=== PATIENT | male | born 1980 | race Caucasian/White ===

== ENCOUNTER 2016-10-14 03:18 | Inpatient (IN) | payer BC ==
[~2016-10-14] VITALS: Ht 182.9 cm; Wt 103.8 kg
[~2016-10-14 03:18] MED LIST: CEPH-443 PO; HYDR-906 PO
[2016-10-14] MEDS ORDERED: SOD CHLORIDE 0.9% 1,000 ML IV ONE ×2 (04:00→05:00)
[2016-10-14] MEDS ORDERED: ONDANSETRON 4 MG INJ IV ONE (04:07)
[2016-10-14] MEDS ORDERED: morphine 4 MG/ML VIAL IV ONE (04:07)
[2016-10-14 04:27] LABS: BASOPHIL # 0.3 10^3/ul (0.0-0.1); BASOPHILS % 1.9 % (0.0-2.0); EOSINOPHILS # 0.9 10^3/ul (0.0-0.5); EOSINOPHILS % 5.6 % (0.0-7.0); HEMOGLOBIN 15.3 g/dl (14.0-18.0); LYMPHOCYTES # 3.8 10^3/ul (0.8-2.9); LYMPHOCYTES % 23.3 % (15.0-51.0); MEAN CORPUSCULAR HEMOGLOBIN 28.1 pg (29.0-33.0); MEAN CORPUSCULAR HGB CONC 32.6 g/dl (32.0-37.0); MEAN CORPUSCULAR VOLUME 86.4 fl (82.0-101.0); MEAN PLATELET VOLUME 9.1 fl (7.4-10.4); MONOCYTE # 1.9 10^3/ul (0.3-0.9); MONOCYTES % 11.9 % (0.0-11.0); NEUTROPHIL # 9.4 10^3/ul (1.6-7.5); NEUTROPHILS % 57.3 % (39.0-77.0); PLATELET COUNT 599 10^3/UL (140-440); RED BLOOD COUNT 5.44 10^6/ul (4.70-6.10); UNCORRECTED WBC 16.3 10^3/ul (4.8-10.8); WHITE BLOOD COUNT 16.3 10^3/ul (4.8-10.8)
[2016-10-14 04:31] LABS: CONDITION 1; LH ANALYZER COMMENTS 1
[2016-10-14 04:34] LABS: ALBUMIN 3.7 g/dl (3.3-4.9); POTASSIUM 4.3 mmol/L (3.5-5.1)
[2016-10-14 04:36] LABS: CREATININE 1.19 mg/dl (0.61-1.24)
[2016-10-14 04:37] LABS: ALBUMIN/GLOBULIN RATIO 0.97; BILIRUBIN,INDIRECT 0.2 mg/dl (0-1.1); BILIRUBIN,TOTAL 0.2 mg/dl (0.2-1.3); CALCIUM 9.5 mg/dl (8.4-10.2); TOTAL PROTEIN 7.5 g/dl (6.1-8.1)
[2016-10-14 04:37] LABS: ADD UMIC YES; URINE BILIRUBIN (Dip) NEGATIVE (NEGATIVE); URINE BLOOD (Dip) NEGATIVE (NEGATIVE); URINE COLOR LT. YELLOW (YELLOW); URINE GLUCOSE (Dip) NEGATIVE (NEGATIVE); URINE KETONES (Dip) NEGATIVE (NEGATIVE); URINE LEUKOCYTE ESTERASE (Dip) TRACE (NEGATIVE); URINE NITRITE (Dip) NEGATIVE (NEGATIVE); URINE TOTAL PROTEIN (Dip) NEGATIVE (NEGATIVE); URINE UROBILINOGEN (Dip) 0.2 E.U./dL (0.1-1.0)
[2016-10-14 04:47] LABS: BACTERIA,URINE RARE; SQUAMOUS EPITHELIAL CELL,UR FEW; URINE RBCS 0-2 /HPF (0)
--- NOTE | 2016-10-14 04:48 | RADRPT ---
PROCEDURE: CT Abdomen and Pelvis without contrast. CLINICAL INDICATION: Epigastric pain, history of pancreatitis, acute and chronic. Lipase is not elevated presently. TECHNIQUE: CT scan of the abdomen and pelvis without contrast was performed on a multidetector hig h-resolution CT scanner. The patient was scanned without intravenous contrast. No oral contrast was administered. Coronal and sagittal reformatted images were obtained from the axial source images. Im ages were reviewed on a high-resolution PACS workstation. The total exam CTDI equals 19.73 mGy and the total exam DLP equals 1377.09 mGy-cm. One or more of the following dose reduction techniques were used: - Automated exposure control. - Adjustment of the mA and/or kV according to patient size. - Use of iterative reconstruction technique. COMPARISON: 02/12/2016 FINDINGS: Lungs: The lung bases are clear. Liver: No abnormality seen. Gallbladder: No abnormality seen. Spleen: Status post splenectomy with a small splenule at the splenectomy bed again seen. Stomach: Food material/debris, fluid and air in the stomach. Pancreas: There is new relative decreased density in head and body of the pancreas with soft tissue stranding in peripancreatic fat adjacent to the head and body of the pancreas which could be second julian to acute pancreatitis. Underlying neoplasm is possible. Adrenals: No abnormality seen. Kidneys: No abnormality seen. Abdominal aorta: No abdominal aortic aneurysm seen. Small amount of calcification in abdominal aort a. Calcification in iliac arteries. Lymph nodes: No enlarged lymph nodes are seen. Small bowel: No dilated small bowel loops are seen. Colon: No abnormality seen. Appendix: No abnormality seen. Bladder: No abnormality seen Pelvic organs: Small calcifications in central prostate. Ascites: None seen. Osseous structures: Schmorl's nodes in thoracolumbar spine. Degenerative changes at hips. IMPRESSION: The lack of intravenous contrast material limits evaluation. New relative decreased density in head and body of the pancreas with soft tissue stranding in peripancreatic fat adjacent to the head and body of the pancreas which could be secondary to acute pancreatitis. An underlying pancreatic neopla sm is possible. Please see above. A call report was made to <<Referring Physicians Name>> on <<D ATETIME>>. RPTAT: HJES .Juan Luis Murphy MD, MD Date Time Electronically viewed and signed by .Juan Luis Murphy MD, MD on 10/14/2016 04:47 .S/
[2016-10-14] MEDS ORDERED: morphine 10 MG INJ IV ONE (05:00)
[2016-10-14] MEDS ORDERED: ONDANSETRON 4 MG INJ IV PRN (06:00)
[2016-10-14] MEDS ORDERED: ACETAMINOPHEN 325 MG TAB PO PRN ×2 (06:00→08:00)
[2016-10-14] MEDS ORDERED: HYDROmorphONE 1 MG/ML SYG IV STA (07:15)
--- NOTE | 2016-10-14 07:29 | ERD ---
ER Documentation Chief Complaint Date/Time DATE: 10/14/16 TIME: 07:21 Chief Complaint upper abd pain radaiting to back x 1 day HPI 36--year-old male with epigastric abdominal pain radiating to the back for 1 day. Pain is also left upper quadrant. States that nothing makes the pain better and it is severe. He has a history of alcoholic pancreatitis and had the part of the tail of the pancreas resected. States he is not drink heavily anymore but still has the pancreatitis. The last time he had alcohol was when he had 2 beers on 's Day with dinner. Denies fevers chills. ROS All systems reviewed and are negative except as per history of present illness. Medications Home Meds Discontinued Scripts Cephalexin* (Keflex*) 500 Mg Capsule, 500 MG PO QID for 7 Days, CAP Prov:JERMAINE PORTILLO DO 07/01/16 Hydrocodone/Acetaminophen (Hubbard 5-325 Tablet) 1 Each Tablet, 1 EACH PO Q8, #15 TAB Prov:JERMAINE PORTILLO DO 07/01/16 Allergies Allergies: Coded Allergies: No Known Allergy (Unverified , 07/01/16) PMhx/Soc History of Surgery: Yes (splenectomy, pancreas tail, intestinal surgery) Anesthesia Reaction: No Hx Neurological Disorder: Yes (TIA x2 (2007)) Hx Respiratory Disorders: No Hx Cardiac Disorders: Yes (HTN) Hx Psychiatric Problems: No Hx Miscellaneous Medical Probl: Yes (pancreatitis) Hx Alcohol Use: Yes (occassional) Hx Substance Use: Yes (marijuana) Hx Tobacco Use: No Smoking Status: Current some day smoker Physical Exam Vitals Vital Signs Date Time Temp Pulse Resp B/P Pulse Ox O2 Delivery O2 Flow Rate FiO2 10/14/16 05:57 54 16 127/71 98 Room Air 10/14/16 04:34 61 16 154/95 98 Room Air 10/14/16 03:20 97.1 70 20 178/115 99 Physical Exam Const: [] Mild distress, appears somewhat uncomfortable Head: Atraumatic Eyes: Normal Conjunctiva ENT: Normal External Ears, Nose and Mouth. Neck: Full range of motion..~ No meningismus. Resp: Clear to auscultation bilaterally Cardio: Regular rate and rhythm, no murmurs Abd: Soft, moderate epigastric and left lower quadrant abdominal tenderness without guarding or rebound, non distended. Normal bowel sounds Skin: No petechiae or rashes Back: No midline or flank tenderness Ext: No cyanosis, or edema Neur: Awake and alert oriented 3, no focal deficits Psych: Normal Mood and Affect Result Diagram: 10/14/1640610/14/16406 Results 24 hrs Laboratory Tests Test 10/14/16 04:00 10/14/16 04:07 Urine Bacteria RARE Urine Bilirubin NEGATIVE Urine Clarity CLEAR Urine Color LT. YELLOW Urine Glucose NEGATIVE% Urine Hemoglobin NEGATIVE Urine Ketones NEGATIVE Urine Leukocyte Esterase TRACE Urine Microscopic RBC 0-2/HPF Urine Microscopic WBC 5-10/HPF Urine Nitrite NEGATIVE Urine Specific [place] 1.020 Urine Squamous Epithelial Cells FEW Urine Total Protein NEGATIVE Urine Urobilinogen 0.2 E.U./dL Urine pH 6.5 Alanine Aminotransferase (ALT/SGPT) 34IU/L Albumin 3.7g/dl Albumin/Globulin Ratio 0.97 Alkaline Phosphatase 107IU/L Anion Gap 20 Aspartate Amino Transf (AST/SGOT) 36IU/L Basophils # 0.310^3/ul Basophils % 1.9% Blood Morphology Comment Blood Urea Nitrogen 18mg/dl Calcium Level 9.5mg/dl Carbon Dioxide Level 28mmol/L Chloride Level 101mmol/L Creatinine 1.19mg/dl Direct Bilirubin 0.00mg/dl Eosinophils # 0.910^3/ul Eosinophils % 5.6% Globulin 3.80g/dl Glucose Level 89mg/dl Hematocrit 47.0% Hemoglobin 15.3g/dl Indirect Bilirubin 0.2mg/dl Lipase 1102U/L Lymphocytes # 3.810^3/ul Lymphocytes % 23.3% Mean Corpuscular Hemoglobin 28.1pg Mean Corpuscular Hemoglobin Concent 32.6g/dl Mean Corpuscular Volume 86.4fl Mean Platelet Volume 9.1fl Monocytes # 1.910^3/ul Monocytes % 11.9% Neutrophils # 9.410^3/ul Neutrophils % 57.3% Nucleated Red Blood Cells # 0.010^3/ul Nucleated Red Blood Cells % 0.0/100WBC Platelet Count 15332^3/UL Potassium Level 4.3mmol/L Red Blood Count 5.4410^6/ul Red Cell Distribution Width 19.0% Sodium Level 145mmol/L Total Bilirubin 0.2mg/dl Total Protein 7.5g/dl White Blood Count 16.310^3/ul Current Medications Medications (Trade) Dose Ordered Sig/Marlo Route PRN Reason Start Time Stop Time Status Last Admin Dose Admin Sodium Chloride (NS) 1,000 ml @ 1,000 mls/hr Q1H ONCE IV 10/14/16 04:00 10/14/16 04:59 DC 10/14/16 04:14 Morphine Sulfate (morphine) 4 mg ONCE ONCE IV 10/14/16 04:07 10/14/16 04:08 DC 10/14/16 04:14 Ondansetron HCl 4 mg 4 mg ONCE ONCE IV 10/14/16 04:07 10/14/16 04:08 DC 10/14/16 04:14 Sodium Chloride (NS) 1,000 ml @ 1,000 mls/hr Q1H ONCE IV 10/14/16 05:00 10/14/16 05:59 DC 10/14/16 04:58 Morphine Sulfate (morphine) 8 mg ONCE ONCE IV 10/14/16 05:00 10/14/16 05:01 DC 10/14/16 04:58 Ondansetron HCl (Zofran Inj) 4 mg BRIDGE ORDER PRN IV NAUSEA AND/OR VOMITING 10/14/16 06:00 10/15/16 05:59 10/14/16 07:18 Acetaminophen (Tylenol Tab) 650 mg ER BRIDGE PRN PO MILD PAIN/FEVER 10/14/16 06:00 10/15/16 05:59 Hydromorphone HCl (Dilaudid) 1 mg ONCE STAT IV 10/14/16 07:15 10/14/16 07:16 DC 10/14/16 07:19 Procedures/MDM Acute on chronic pancreatitis. She was given 2 L of IV normal saline. Given morphine for pain which did control the pain for a short time the pain came back. When she was given Dilaudid. This took away all of his pain. He has both laboratory and CT evidence of acute pancreatitis. Radiologist also even mentions possible neoplasm. Does have elevated white blood cell count as well as thrombocytosis significant for reactive laboratories with an acute inflammatory process per. Spoke with Dr. Gaston who has seen the patient on consult previously and will see the patient on consult on this hospital admission. is admitting. CT abdomen pelvis interpretation: Pancreatic stranding consistent with acute pancreatitis, no free air, no obstruction, no bony abnormalities Departure Diagnosis: Primary Impression: Acute pancreatitis Additional Impression: Thrombocytosis Condition: Serious ANDRZEJ MARIE DO Oct 14, 2016 07:29
[2016-10-14] MEDS ORDERED: morphine 2 MG INJ IV PRN (08:00)
[2016-10-14] MEDS ORDERED: traMADol 50 MG TAB PO PRN (08:00)
[2016-10-14] MEDS ORDERED: NACL 0.9% 3 ML SYG IV SCH (08:00)
[2016-10-14] MEDS: morphine 2 MG INJ IV PRN ×3 (10:00→14:24)
[2016-10-14] MEDS ORDERED: HYDROmorphONE 1 MG/ML SYG IV PRN (11:30)
--- NOTE | 2016-10-14 12:01 | CONS ---
Date/Time of Note Date/Time of Note DATE: 10/14/16 TIME: 11:51 Assessment/Plan Assessment/Plan Additional Assessment/Plan Abdominal pain * Likely secondary to pancreatitis * CT abdomen 10-14-16: Pancreas: There is new relative decreased density in head and body of the pancreas with soft tissue stranding in peripancreatic fat adjacent to the head and body of the pancreas which could be secondary to acute pancreatitis. Underlying neoplasm is possible. * MRCP * ERCP if clinically indicated * N.p.o. * Nausea and pain control * Monitor labs Diarrhea Fecal incontinence * Recommend outpatient colonoscopy High cholesterol Obesity Further conditions depend on clinical course Consultation Date/Type/Reason Admit Date/Time Type of Consultation: Gastroenterology Reason for Consultation Pancreatitis Hx of Present Illness 36-year-old male presented to ED with reports of increasing abdominal pain that started on Tuesday, October 11. Patient states he had steak dinner with 2 beers this past Tuesday and states symptoms of abdominal pain, nausea, nonbloody bilious vomiting, and diarrhea slowly began after a meal. Patient states that symptoms worsened yesterday afternoon. Patient denies fever, chills, chest pain , shortness of breath, sick contacts, and travel outside the [place]. Patient reports previous episode of pancreatitis several years ago secondary to his increased alcohol intake. Patient reports splenectomy, resection of pancreas, and resection of stomach secondary to alcohol abuse 3 years ago. Patient states that he's been sober for several years until recently. Patient states that he has been having increased diarrhea since surgery 3 years ago. Patient also reports intermittent episodes of fecal incontinence and hematochezia. Patient reports one episode of hematochezia one month ago and may be 5-6 episodes of hematochezia since surgery 3 years ago. Patient denies history of IBS, IBD, and family history of colon cancer. CT abdomen does not note abnormality with large or small bowel. Recommend outpatient colonoscopy. Past Medical History Medical History: high cholesterol Past Surgical History Past Surgical Hx: other (Splenectomy, resection of pancreas, resection of stomach) Social History Smoking Status: Current some day smoker Exam/Review of Systems Vital Signs Vitals Vital Signs Date Time Temp Pulse Resp B/P Pulse Ox O2 Delivery O2 Flow Rate FiO2 10/14/16 11:29 97.6 53 12 151/93 100 Room Air Exam Constitutional: alert, oriented, well developed Psych: nl mood/affect Head: normocephalic Eyes: EOMI, nl conjunctiva, nl lids, nl sclera ENMT: mucosa pink and moist, nl external ears & nose, nl lips & teeth, nl nasal mucosa & septum Respiratory: normal air movement Cardiovascular: regular rate and rhythm Gastrointestinal: soft, surgical scars (Left upper quadrant, status post splenectomy), tender (Epigastric and left upper quadrant) Musculoskeletal: nl extremities to inspection Neurological: CHANNEL LIP WETTER II-XII intact Results Result Diagram: 10/14/167 10/14/16 0407 Results 24 hrs Laboratory Tests Test 10/14/16 04:00 10/14/16 04:07 Ethyl Alcohol Level < 10.0 Urine Bacteria RARE Urine Bilirubin NEGATIVE Urine Clarity CLEAR Urine Color LT. YELLOW Urine Glucose NEGATIVE Urine Hemoglobin NEGATIVE Urine Ketones NEGATIVE Urine Leukocyte Esterase TRACE H Urine Microscopic RBC 0-2 Urine Microscopic WBC 5-10 Urine Nitrite NEGATIVE Urine Specific [place] 1.020 Urine Squamous Epithelial Cells FEW Urine Total Protein NEGATIVE Urine Urobilinogen 0.2 E.U./dL Urine pH 6.5 Alanine Aminotransferase (ALT/SGPT) 34 Albumin 3.7 Albumin/Globulin Ratio 0.97 Alkaline Phosphatase 107 Anion Gap 20 H Aspartate Amino Transf (AST/SGOT) 36 Basophils # 0.3 H Basophils % 1.9 Blood Morphology Comment Blood Urea Nitrogen 18 Calcium Level 9.5 Carbon Dioxide Level 28 Chloride Level 101 Creatinine 1.19 Direct Bilirubin 0.00 Eosinophils # 0.9 H Eosinophils % 5.6 Globulin 3.80 H Glucose Level 89 Hematocrit 47.0 Hemoglobin 15.3 Indirect Bilirubin 0.2 Lipase 1102 H Lymphocytes # 3.8 H Lymphocytes % 23.3 Mean Corpuscular Hemoglobin 28.1 L Mean Corpuscular Hemoglobin Concent 32.6 Mean Corpuscular Volume 86.4 Mean Platelet Volume 9.1 Monocytes # 1.9 H Monocytes % 11.9 H Neutrophils # 9.4 H Neutrophils % 57.3 Nucleated Red Blood Cells # 0.0 Nucleated Red Blood Cells % 0.0 Platelet Count 599 #H Potassium Level 4.3 Red Blood Count 5.44 Red Cell Distribution Width 19.0 H Sodium Level 145 H Total Bilirubin 0.2 Total Protein 7.5 White Blood Count 16.3 H Medications Medications Current Medications Dextrose/Sodium Chloride (D5-1/2ns) 1,000 ml @ 125 mls/hr Q8H IV ; Start at 11:00 Ondansetron HCl (Zofran Inj) 4 mg Q6H PRN IV NAUSEA AND/OR VOMITING; Start at 08:00 Acetaminophen (Tylenol Tab) 650 mg Q6H PRN PO PAIN LEVEL 1-3 OR FEVER; Start at 08:00 Famotidine (Pepcid Iv) 20 mg Q12 IV ; Start 10/14/16 at 11:00 Heparin Sodium (Porcine) (Heparin (5000 Units/0.5 ml)) 5,000 unit Q12 SC ; Start 10/14/16 at 11:00 Tramadol HCl (Ultram) 50 mg Q6H PRN PO pain Last administered on 10/14/16 09: 38; Admin Dose 50 MG; Start 10/14/16 at 08:00 Morphine Sulfate (morphine) 2 mg Q2 PRN IV SEVERE PAIN LEVEL 7-10 Last administered on 10/14/16 10:00; Admin Dose 2 MG; Start 10/14/16 at 10:00 Hydromorphone HCl (Dilaudid) 0.5 mg Q3 PRN IV SEDATION; Start 10/14/16 at 11:30 Hydromorphone HCl (Dilaudid) 0.5 mg Q3 PRN IV SEVERE PAIN LEVEL 7-10; Start at 11:30 PARVIZ HARRISON MD Oct 14, 2016 12:01
[2016-10-14] MEDS: DEXTROSE 5%-0.45% NACL 1,000 ML IV SCH ×3 (12:12→21:41)
[2016-10-14] MEDS: FAMOTIDINE 20 MG INJ IV SCH ×2 (12:12→21:41)
[2016-10-14] MEDS: HEPARIN 5,000 UNIT/0.5 ML SYG SC SCH ×2 (12:14→21:40)
[2016-10-14] MEDS: HYDROmorphONE 1 MG/ML SYG IV PRN ×2 (12:26→15:40)
[2016-10-14] MEDS: ONDANSETRON 4 MG INJ IV PRN ×2 (14:24→21:41)
[2016-10-14] MEDS ORDERED: BISACODYL (EC) 5 MG TAB PO ONE ×2 (15:00→21:00)
[2016-10-14] MEDS ORDERED: MAGNESIUM CITRATE 300 ML BTL PO ONE (16:00)
--- NOTE | 2016-10-14 16:56 | PN ---
Date/Time of Note Date/Time of Note DATE: 10/14/16 TIME: 16:52 Assessment/Plan VTE Prophylaxis VTE Prophylaxis Intervention: SCD's Assessment/Plan Chief Complaint/Hosp Course Assessment and plan 1. Acute pancreatitis. Patient still with elevated lipase. IV hydration. Keep npo for now. Analgesics as needed. 2. Density in head and body of the pancreas with soft tissue stranding in peripancreatic fat adjacent to the head and body of the pancreas. GI following. Continue the recommendations. Of note imaging does report decrease in density 3. Leukocytosis secondary to #1. Afebrile at present. DVT prophylaxis: Early ambulation Disposition and plan: Await clinical improvement of pancreatitis. Will advance diet once pain subsides. Discussed plan of care with Dr. Ayala Problems: Subjective 24 Hr Interval Summary Free Text/Dictation Still with reports of abdominal pain in epigastric area. No reports of nausea vomiting at this time Exam/Review of Systems Vital Signs Vitals Vital Signs Date Time Temp Pulse Resp B/P Pulse Ox O2 Delivery O2 Flow Rate FiO2 10/14/16 15:42 97.6 50 12 160/91 97 Room Air Exam General: In mild distress secondary to reported abdominal pain Eyes: [pupils equal round, Anicteric sclera] Neck: Supple nontender, no JVD Cardiac: [S1, S2 auscultated, regular rhythm and rate] Pulmonary: [No coarse rhonchi or breathing auscultated] GI: Bowel sounds active. Tender upon palpation more noted on the upper abdominal quadrants Extremities: [No edema bilateral lower extremities] Skin: [Clean dry and intact] Neurologic: [Alert to person place and time and situation] Results Result Diagram: 10/14/1640610/14/16406 Results 24 hrs Laboratory Tests Test 10/14/16 04:00 10/14/16 04:07 Ethyl Alcohol Level < 10.0 Urine Bacteria RARE Urine Bilirubin NEGATIVE Urine Clarity CLEAR Urine Color LT. YELLOW Urine Glucose NEGATIVE Urine Hemoglobin NEGATIVE Urine Ketones NEGATIVE Urine Leukocyte Esterase TRACE H Urine Microscopic RBC 0-2 Urine Microscopic WBC 5-10 Urine Nitrite NEGATIVE Urine Specific [place] 1.020 Urine Squamous Epithelial Cells FEW Urine Total Protein NEGATIVE Urine Urobilinogen 0.2 E.U./dL Urine pH 6.5 Alanine Aminotransferase (ALT/SGPT) 34 Albumin 3.7 Albumin/Globulin Ratio 0.97 Alkaline Phosphatase 107 Anion Gap 20 H Aspartate Amino Transf (AST/SGOT) 36 Basophils # 0.3 H Basophils % 1.9 Blood Morphology Comment Blood Urea Nitrogen 18 Calcium Level 9.5 Carbon Dioxide Level 28 Chloride Level 101 Creatinine 1.19 Direct Bilirubin 0.00 Eosinophils # 0.9 H Eosinophils % 5.6 Globulin 3.80 H Glucose Level 89 Hematocrit 47.0 Hemoglobin 15.3 Indirect Bilirubin 0.2 Lipase 1102 H Lymphocytes # 3.8 H Lymphocytes % 23.3 Mean Corpuscular Hemoglobin 28.1 L Mean Corpuscular Hemoglobin Concent 32.6 Mean Corpuscular Volume 86.4 Mean Platelet Volume 9.1 Monocytes # 1.9 H Monocytes % 11.9 H Neutrophils # 9.4 H Neutrophils % 57.3 Nucleated Red Blood Cells # 0.0 Nucleated Red Blood Cells % 0.0 Platelet Count 599 #H Potassium Level 4.3 Red Blood Count 5.44 Red Cell Distribution Width 19.0 H Sodium Level 145 H Total Bilirubin 0.2 Total Protein 7.5 White Blood Count 16.3 H Medications Medications Current Medications Dextrose/Sodium Chloride (D5-1/2ns) 1,000 ml @ 125 mls/hr Q8H IV Last administered on 10/14/16 12:12; Admin Dose 125 MLS/HR; Start 10/14/16 at 11:00 Ondansetron HCl (Zofran Inj) 4 mg Q6H PRN IV NAUSEA AND/OR VOMITING Last administered on 10/14/16 14:24; Admin Dose 4 MG; Start 10/14/16 at 08:00 Acetaminophen (Tylenol Tab) 650 mg Q6H PRN PO PAIN LEVEL 1-3 OR FEVER; Start at 08:00 Famotidine (Pepcid Iv) 20 mg Q12 IV Last administered on 10/14/16 12:12; Admin Dose 20 MG; Start 10/14/16 at 11:00 Heparin Sodium (Porcine) (Heparin (5000 Units/0.5 ml)) 5,000 unit Q12 SC Last administered on 10/14/16 12:14; Admin Dose 5,000 UNIT; Start 10/14/16 at 11:00 Nicotine (Nicoderm 21 Mg/ 24hr) 1 patch AM TRANSDERM ; Start 10/15/16 at 09:00 Hydromorphone HCl (Dilaudid FORKLIFT TECHNICIAN) 1.0 MG/HR CONTINUOUS RATE ... Q4PCA IV ; Start 10/14/16 at 16:00 Lorazepam (Ativan) 1 mg Q6 PO ; Start 10/14/16 at 18:00 GEOFF CAT Oct 14, 2016 16:56
--- NOTE | 2016-10-14 17:46 | RADRPT ---
PROCEDURE: MRI abdomen / MRCP CLINICAL INDICATION: Abdominal pain. Pancreatitis. Possible gallstones TECHNIQUE: MRI of the abdomen is performed without contrast utilizing axial T2 and T2 fat suppress ion sequences as well as in and out of phase imaging. The MRCP is performed and the MIP series submi tted for review. COMPARISON: CT abdomen and pelvis 10/14/2016 FINDINGS: Visualized lower thorax: There is no evidence for consolidation or pleural effusion. Liver: Normal in size, contour and signal intensity with no evidence for masses or ductal dilatatio n. Gallbladder: Normal in caliber with no filling defects to suggest cholelithiasis and no wall thicke hubert. There is no pericholecystic inflammation. Common bile duct: There is no filling defect to suggest choledocholithiasis. The caliber of the du ct is of normal estimated at 3 mm. The MRCP shows no evidence for intrahepatic or extrahepatic duct al dilatation, the ductal system is smoothly aligned with no evidence for filling defect. Pancreas: Diffuse fullness of the pancreatic head and body is present with irregularly marginated c entrally hyperintense foci in the pancreatic body of the 98 dimension of 2.3 x 2 cm and suggest panc reatic pseudocysts. The pancreatic necrosis and underline pancreatic neoplasm is difficult to entir oumar exclude without contrast media utilization. The pancreatic duct is normal in caliber measuring 3 mm. There is some inflammatory flavum on within the left anterior pararenal space. Spleen: Surgically absent. Some splenosis with splenic tissue in the left upper quadrant is again n oted Adrenal glands: Unremarkable bilaterally. Kidneys: Normal in size with no evidence for masses or hydronephrosis. Stomach, visualized small bowel and visualized large intestine: No abnormalities are demonstrated. Abdominal aorta: Normal in caliber estimated at 2 cm. Inferior vena cava: Unremarkable. Vertebral bodies and osseous structures: Unremarkable. Musculature and soft tissues: Unremarkable. RPTAT:HJJR IMPRESSION: 1. No evidence of cholelithiasis or cholecystitis. 2. The common bile duct and intrahepatic ducts are normal in caliber and there is no choledocholith iasis. 3. Changes of pancreatitis with inflammatory phlegmon in the left anterior pararenal space and like ly pseudocysts in the pancreatic body having estimation of 2.3 x 2 cm without pancreatic ductal dila tation. As underlying pancreatic neoplasm or pancreatic necrosis is difficult to entirely exclude o n this unenhanced exam, follow-up is recommended. 4. Changes of prior splenectomy. Ralph Sparks Physician Date Time Electronically viewed and signed by Ralph Sparks, Physician on 10/14/2016 17:46 JR/
[2016-10-14] MEDS: LORAZEPAM 1 MG TAB PO SCH ×2 (17:53→23:24)
[2016-10-14] MEDS: HYDROmorphONE 0.2 MG/ML PCA IV SCH ×2 (18:36→21:38)
[2016-10-14] MEDS ORDERED: POLYETHYLENE GLYCOL 3350 119 GM POWDER PO ONE ×2 (19:00→21:00)
[2016-10-14 19:30] VITALS: TEMP 98
[2016-10-14 20:30] VITALS: BP 198/110; PULSE 76; RESP 19; Ht 182.9 cm; Wt 103.8 kg
[2016-10-14] MEDS: NICOTINE (21 MG/24 HR) PATCH TRANSDERM SCH (21:41)
[2016-10-14 22:00] VITALS: BP 201/106; PULSE 71
--- NOTE | 2016-10-14 23:11 | HP ---
Date/Time of Note Date/Time of Note DATE: 10/14/16 TIME: 23:11 Assessment/Plan Lines/Catheters IV Catheter Type (from Nrsg): Peripheral IV Assessment/Plan Assessment/Plan 1. Acute on chronic pancreatitis - NPO with IVF - Pain mgmt 2. Abdominal pain 2/2 above 3. Hypertension. - PRN IV anti-hypertensives for now 4. Leukocytosis: 2/2 pancreatitis - see # 1 5. Nicotine use. - cessation advised 6. Substance abuse. - advised about importance of abstinence HPI/ROS Admit Date/Time Admit Date/Time Hx of Present Illness 36--year-old male with epigastric abdominal pain radiating to the back for 1 day. Pain is also left upper quadrant. States that nothing makes the pain better and it is severe. He has a history of alcoholic pancreatitis and had the part of the tail of the pancreas resected. States he is not drink heavily anymore but still has the pancreatitis. The last time he had alcohol was when he had 2 beers on 's Day with dinner. Denies fevers chills. ROS Psychological: nl mood/affect PMH/Family/Social Past Medical History Medical History: hypertension, pancreatitis Past Surgical History Past Surgical Hx: other (Splenectomy, resection of pancreas, resection of stomach) Social History Alcohol Use: heavy Smoking Status: Current every day smoker Exam/Review of Systems Vital Signs Vitals Vital Signs Date Time Temp Pulse Resp B/P Pulse Ox O2 Delivery O2 Flow Rate FiO2 10/14/16 20:30 97.5 76 19 198/110 98 Room Air Exam Constitutional: alert, oriented, well developed Head: atraumatic, normocephalic Eyes: EOMI, PERRL Neck: non-tender, supple Respiratory: clear to auscultation, normal air movement Cardiovascular: nl pulses, regular rate and rhythm Gastrointestinal: soft, tender Extremities: normal pulses Labs Result Diagram: 10/14/1640610/14/16406 Medications Medications Current Medications Dextrose/Sodium Chloride (D5-1/2ns) 1,000 ml @ 125 mls/hr Q8H IV Last administered on 10/14/16t 21:41; Admin Dose 125 MLS/HR; Start 10/14/16 at 11:00 Ondansetron HCl (Zofran Inj) 4 mg Q6H PRN IV NAUSEA AND/OR VOMITING Last administered on 10/14/16 21:41; Admin Dose 4 MG; Start 10/14/16 at 08:00 Acetaminophen (Tylenol Tab) 650 mg Q6H PRN PO PAIN LEVEL 1-3 OR FEVER; Start at 08:00 Famotidine (Pepcid Iv) 20 mg Q12 IV Last administered on 10/14/16 21:41; Admin Dose 20 MG; Start 10/14/16 at 11:00 Heparin Sodium (Porcine) (Heparin (5000 Units/0.5 ml)) 5,000 unit Q12 SC Last administered on 10/14/16 21:40; Admin Dose 5,000 UNIT; Start 10/14/16 at 11:00 Hydromorphone HCl (Dilaudid SOLUTION ENGINEER) 1.0 MG/HR CONTINUOUS RATE ... Q4PCA IV Last administered on 10/14/16 21:38; Admin Dose 6 MG; Start 10/14/16 at 16:00 Lorazepam (Ativan) 1 mg Q6 PO Last administered on 10/14/16 17:53; Admin Dose 1 MG; Start 10/14/16 at 18:00 Nicotine (Nicoderm 21 Mg/ 24hr) 1 patch QPM TRANSDERM Last administered on 10/14 21:41; Admin Dose 1 PATCH; Start 10/14/16 at 21:00 Hydralazine HCl (Apresoline) 25 mg Q8 PO Last administered on 10/14/16 22:16; Admin Dose 25 MG; Start 10/14/16 at 22:09 KIMO KWON MD Oct 14, 2016 23:11
[2016-10-14 23:50] VITALS: BP 201/109; RESP 18
[2016-10-14] MEDS: METOCLOPRAMIDE 10 MG INJ IV PRN (23:52)
[2016-10-14] MEDS: hydrALAzine 20 MG INJ IV PRN (23:53)
[2016-10-15 00:22] VITALS: BP 159/103; PULSE 65
[2016-10-15] MEDS: ONDANSETRON 4 MG INJ IV PRN ×2 (04:46→09:25)
[2016-10-15] MEDS: hydrALAzine 20 MG INJ IV PRN (04:46)
[2016-10-15 04:47] VITALS: BP 200/110; PULSE 74
[2016-10-15] MEDS: HYDROmorphONE 0.2 MG/ML PCA IV SCH ×5 (05:35→23:54)
[2016-10-15 05:45] LABS: HEMATOCRIT 49.3 % (42.0-52.0); HEMOGLOBIN 16.2 g/dl (14.0-18.0); MEAN CORPUSCULAR HEMOGLOBIN 28.7 pg (29.0-33.0); MEAN CORPUSCULAR HGB CONC 32.9 g/dl (32.0-37.0); MEAN CORPUSCULAR VOLUME 87.3 fl (82.0-101.0); MEAN PLATELET VOLUME 9.2 fl (7.4-10.4); PLATELET COUNT 588 10^3/UL (140-440); RED BLOOD COUNT 5.65 10^6/ul (4.70-6.10); RED CELL DISTRIBUTION WIDTH 19.1 % (11.5-14.5); UNCORRECTED WBC 15.1 10^3/ul (4.8-10.8); WHITE BLOOD COUNT 15.1 10^3/ul (4.8-10.8)
[2016-10-15 05:56] LABS: CONDITION 1; LH ANALYZER COMMENTS 1
[2016-10-15] MEDS: LORAZEPAM 1 MG TAB PO SCH ×4 (06:16→23:51)
[2016-10-15 06:19] VITALS: BP 169/91; PULSE 65
[2016-10-15 06:20] LABS: ALBUMIN 4.3 g/dl (3.3-4.9)
[2016-10-15 06:22] LABS: BILIRUBIN,INDIRECT 0.2 mg/dl (0-1.1); BILIRUBIN,TOTAL 0.2 mg/dl (0.2-1.3); CREATININE 0.96 mg/dl (0.61-1.24)
[2016-10-15 06:23] LABS: ALBUMIN/GLOBULIN RATIO 1.07; CALCIUM 9.6 mg/dl (8.4-10.2); PHOSPHORUS 3.3 mg/dl (2.5-4.9); TOTAL PROTEIN 8.3 g/dl (6.1-8.1)
[2016-10-15 06:24] LABS: MAGNESIUM 1.9 mg/dl (1.7-2.5)
[2016-10-15] MEDS: DEXTROSE 5%-0.45% NACL 1,000 ML IV SCH ×2 (07:40→15:41)
[2016-10-15 08:57] VITALS: BP 147/99; RESP 20
[2016-10-15] MEDS ORDERED: NICOTINE (21 MG/24 HR) PATCH TRANSDERM SCH (09:00)
--- NOTE | 2016-10-15 09:10 | CONS ---
Date/Time of Note Date/Time of Note DATE: 10/15/16 TIME: 09:09 Assessment/Plan Assessment/Plan Additional Assessment/Plan Abdominal pain * Likely secondary to pancreatitis * CT abdomen 10-14-16: Pancreas: There is new relative decreased density in head and body of the pancreas with soft tissue stranding in peripancreatic fat adjacent to the head and body of the pancreas which could be secondary to acute pancreatitis. Underlying neoplasm is possible. * MRCP * ERCP if clinically indicated * N.p.o. * Nausea and pain control * Monitor labs Diarrhea Fecal incontinence * Recommend outpatient colonoscopy High cholesterol Obesity Further conditions depend on clinical course Consultation Date/Type/Reason Admit Date/Time Oct 14, 2016 at 05:58 Initial Consult Date Type of Consultation: Gastroenterology 24 HR Interval Summary Free Text/Dictation Abdominal pain improving Recommend OP colonoscopy Exam/Review of Systems Vital Signs Vitals Vital Signs Date Time Temp Pulse Resp B/P Pulse Ox O2 Delivery O2 Flow Rate FiO2 10/15/16 08:57 98.3 58 20 147/99 100 10/14/16 23:50 Room Air Intake and Output 10/14/16 10/14/16 10/15/16 15:00 23:00 07:00 Intake Total 2000 ml 1150 ml Output Total 50 ml Balance 2000 ml 1100 ml Exam Constitutional: alert, oriented, well developed Psych: nl mood/affect Head: normocephalic Eyes: EOMI, nl conjunctiva, nl lids, nl sclera ENMT: mucosa pink and moist, nl external ears & nose, nl lips & teeth, nl nasal mucosa & septum Respiratory: normal air movement Cardiovascular: regular rate and rhythm Gastrointestinal: soft, surgical scars (Left upper quadrant, status post splenectomy), tender (Epigastric and left upper quadrant) Musculoskeletal: nl extremities to inspection Neurological: EVAPORATOR OPERATOR MOLASSES II-XII intact Results Result Diagram: 10/15/16 0450 10/15/16 0450 Results 24 hrs Laboratory Tests Test 10/15/16 04:50 Alanine Aminotransferase (ALT/SGPT) 38 Albumin 4.3 Albumin/Globulin Ratio 1.07 Alkaline Phosphatase 134 H Anion Gap 21 H Aspartate Amino Transf (AST/SGOT) 32 Blood Morphology Comment Blood Urea Nitrogen 8 # Calcium Level 9.6 Carbon Dioxide Level 24 Chloride Level 100 Creatinine 0.96 Direct Bilirubin 0.00 Globulin 4.00 H Glucose Level 97 Hematocrit 49.3 Hemoglobin 16.2 Indirect Bilirubin 0.2 Magnesium Level 1.9 Mean Corpuscular Hemoglobin 28.7 L Mean Corpuscular Hemoglobin Concent 32.9 Mean Corpuscular Volume 87.3 Mean Platelet Volume 9.2 Phosphorus Level 3.3 Platelet Count 588 H Potassium Level 4.0 Red Blood Count 5.65 Red Cell Distribution Width 19.1 H Sodium Level 141 Total Bilirubin 0.2 Total Protein 8.3 H White Blood Count 15.1 H Medications Medications Current Medications Dextrose/Sodium Chloride (D5-1/2ns) 1,000 ml @ 125 mls/hr Q8H IV Last administered on 10/15/16 07:40; Admin Dose 125 MLS/HR; Start 10/14/16 at 11:00 Ondansetron HCl (Zofran Inj) 4 mg Q6H PRN IV NAUSEA AND/OR VOMITING Last administered on 10/15/16 04:46; Admin Dose 4 MG; Start 10/14/16 at 08:00 Acetaminophen (Tylenol Tab) 650 mg Q6H PRN PO PAIN LEVEL 1-3 OR FEVER; Start at 08:00 Famotidine (Pepcid Iv) 20 mg Q12 IV Last administered on 10/14/16 21:41; Admin Dose 20 MG; Start 10/14/16 at 11:00 Heparin Sodium (Porcine) (Heparin (5000 Units/0.5 ml)) 5,000 unit Q12 SC Last administered on 10/14/16 21:40; Admin Dose 5,000 UNIT; Start 10/14/16 at 11:00 Hydromorphone HCl (Dilaudid MANAGER BUSINESS MANAGEMENT) 1.0 MG/HR CONTINUOUS RATE ... Q4PCA IV Last administered on 10/15/16 08:50; Admin Dose 6 MG; Start 10/14/16 at 16:00 Lorazepam (Ativan) 1 mg Q6 PO Last administered on 10/15/16 06:16; Admin Dose 1 MG; Start 10/14/16 at 18:00 Nicotine (Nicoderm 21 Mg/ 24hr) 1 patch QPM TRANSDERM Last administered on 10/14 21:41; Admin Dose 1 PATCH; Start 10/14/16 at 21:00 Hydralazine HCl (Apresoline) 25 mg Q8 PO Last administered on 10/15/16 06:16; Admin Dose 25 MG; Start 10/14/16 at 22:09 Metoclopramide HCl (Reglan) 10 mg Q6H PRN IV NAUSEA Last administered on 23:52; Admin Dose 10 MG; Start 10/15/16 at 00:00 Hydralazine HCl (Apresoline) 10 mg Q4H PRN IV ELEVATED SYSTOLIC BP Last administered on 10/15/16 04:46; Admin Dose 10 MG; Start 10/15/16 at 00:00 IVETTE MCFARLANE Oct 15, 2016 09:10
[2016-10-15] MEDS: FAMOTIDINE 20 MG INJ IV SCH (09:26)
[2016-10-15 09:30] LABS: BASOPHIL # 0.3 10^3/ul (0.0-0.1); EOSINOPHILS # 1.2 10^3/ul (0.0-0.5); LYMPHOCYTES # 5.1 10^3/ul (0.8-2.9); MONOCYTE # 2.6 10^3/ul (0.3-0.9)
[2016-10-15] MEDS: HEPARIN 5,000 UNIT/0.5 ML SYG SC SCH ×2 (09:31→20:57)
[2016-10-15] MEDS ORDERED: NALOXONE (0.4 MG/ML) INJ IV PRN (10:30)
[2016-10-15] MEDS ORDERED: PANTOPRAZOLE 40 MG INJ IV ONE (11:30)
[2016-10-15] MEDS: METOCLOPRAMIDE 10 MG INJ IV PRN (12:07)
--- NOTE | 2016-10-15 13:48 | PN ---
Date/Time of Note Date/Time of Note DATE: 10/15/16 TIME: 13:47 Assessment/Plan VTE Prophylaxis VTE Prophylaxis Intervention: SCD's Lines/Catheters IV Catheter Type (from Nrs): Peripheral IV Assessment/Plan Chief Complaint/Hosp Course Assessment and plan 1. Acute pancreatitis. Patient still with elevated lipase. IV hydration. Keep npo for now. Analgesics as needed. 2. Density in head and body of the pancreas with soft tissue stranding in peripancreatic fat adjacent to the head and body of the pancreas. GI following. Continue the recommendations. Of note imaging does report decrease in density 3. Leukocytosis secondary to #1. Afebrile at present. DVT prophylaxis: Early ambulation Disposition and plan: Await clinical improvement of pancreatitis. Lipase level is downward trending. We'll start diet once pain resolves. Continue with analgesics as needed Discussed plan of care with Dr. Ayala Problems: Subjective 24 Hr Interval Summary Free Text/Dictation Still with some abdominal pain but that this time. Exam/Review of Systems Vital Signs Vitals Vital Signs Date Time Temp Pulse Resp B/P Pulse Ox O2 Delivery O2 Flow Rate FiO2 10/15/16 09:00 17 10/15/16 08:57 98.3 58 147/99 100 10/14/16 23:50 Room Air Intake and Output 10/14/16 10/14/16 10/15/16 15:00 23:00 07:00 Intake Total 2000 ml 1150 ml Output Total 50 ml Balance 2000 ml 1100 ml Exam General: In mild distress secondary to reported abdominal pain Eyes: pupils equal round, Anicteric sclera Neck: Supple nontender, no JVD Cardiac: S1, S2 auscultated, regular rhythm and rate Pulmonary: No coarse rhonchi or breathing auscultated GI: Bowel sounds active. Tender upon palpation more noted on the upper abdominal quadrants Extremities: No edema bilateral lower extremities Skin: Clean dry and intact Neurologic: Alert to person place and time and situation Results Result Diagram: 10/15/1644910/15/16449 Results 24 hrs Laboratory Tests Test 10/15/16 04:50 Alanine Aminotransferase (ALT/SGPT) 38 Albumin 4.3 Albumin/Globulin Ratio 1.07 Alkaline Phosphatase 134 H Anion Gap 21 H Aspartate Amino Transf (AST/SGOT) 32 Band Neutrophils % 2.0 Basophils # 0.3 H Basophils % 2.0 Blood Morphology Comment Blood Urea Nitrogen 8 # Calcium Level 9.6 Carbon Dioxide Level 24 Chloride Level 100 Creatinine 0.96 Direct Bilirubin 0.00 Eosinophils # 1.2 H Eosinophils % 8.0 H Globulin 4.00 H Glucose Level 97 Hematocrit 49.3 Hemoglobin 16.2 Indirect Bilirubin 0.2 Lipase 769 H Lymphocytes # 5.1 H Lymphocytes % 34.0 Magnesium Level 1.9 Mean Corpuscular Hemoglobin 28.7 L Mean Corpuscular Hemoglobin Concent 32.9 Mean Corpuscular Volume 87.3 Mean Platelet Volume 9.2 Monocytes # 2.6 H Monocytes % 17.0 H Neutrophils # 5.0 Neutrophils % 33.0 L Phosphorus Level 3.3 Platelet Count 588 H Potassium Level 4.0 Reactive Lymphocytes % 4.0 Red Blood Count 5.65 Red Cell Distribution Width 19.1 H Sodium Level 141 Total Bilirubin 0.2 Total Protein 8.3 H White Blood Count 15.1 H Medications Medications Current Medications Dextrose/Sodium Chloride (D5-1/2ns) 1,000 ml @ 125 mls/hr Q8H IV Last administered on 10/15/16 07:40; Admin Dose 125 MLS/HR; Start 10/14/16 at 11:00 Ondansetron HCl (Zofran Inj) 4 mg Q6H PRN IV NAUSEA AND/OR VOMITING Last administered on 10/15/16 09:25; Admin Dose 4 MG; Start 10/14/16 at 08:00 Acetaminophen (Tylenol Tab) 650 mg Q6H PRN PO PAIN LEVEL 1-3 OR FEVER; Start at 08:00 Heparin Sodium (Porcine) (Heparin (5000 Units/0.5 ml)) 5,000 unit Q12 SC Last administered on 10/15/16 09:31; Admin Dose 5,000 UNIT; Start 10/14/16 at 11:00 Hydromorphone HCl (Dilaudid WELDING EQUIPMENT SALES REPRESENTATIVE) 1.0 MG DOSE 30... Q4PCA IV Last administered on 10/15/16 13:40; Admin Dose 6 MG; Start 10/14/16 at 16:00 Lorazepam (Ativan) 1 mg Q6 PO Last administered on 10/15/16 11:47; Admin Dose 1 MG; Start 10/14/16 at 18:00 Nicotine (Nicoderm 21 Mg/ 24hr) 1 patch QPM TRANSDERM Last administered on 10/14 21:41; Admin Dose 1 PATCH; Start 10/14/16 at 21:00 Hydralazine HCl (Apresoline) 25 mg Q8 PO Last administered on 10/15/16 06:16; Admin Dose 25 MG; Start 10/14/16 at 22:09 Metoclopramide HCl (Reglan) 10 mg Q6H PRN IV NAUSEA Last administered on 12:07; Admin Dose 10 MG; Start 10/15/16 at 00:00 Hydralazine HCl (Apresoline) 10 mg Q4H PRN IV ELEVATED SYSTOLIC BP Last administered on 10/15/16 04:46; Admin Dose 10 MG; Start 10/15/16 at 00:00 Naloxone HCl (Narcan) 0.2 mg Q2M PRN IV DECREASED REPIRATORY RATE; Start at 10:30 Pantoprazole (Protonix Iv) 40 mg BID@06,18 IV ; Start 10/15/16 at 18:00 GEOFF CAT Oct 15, 2016 13:48
[2016-10-15 14:03] LABS: BENZODIAZEPINES Negative (NEGATIVE)
[2016-10-15 14:15] LABS: BARBITURATES Negative (NEGATIVE); COCAINE Negative (NEGATIVE)
[2016-10-15 14:19] LABS: CANNABINOIDS Positive (NEGATIVE); OPIATES Positive (NEGATIVE)
[2016-10-15] MEDS: PANTOPRAZOLE 40 MG INJ IV SCH (18:09)
[2016-10-15 20:47] VITALS: BP 168/93; PULSE 62; RESP 18
[2016-10-15] MEDS: NICOTINE (21 MG/24 HR) PATCH TRANSDERM SCH (20:50)
[2016-10-15 22:44] VITALS: BP 132/74; PULSE 68; RESP 18
[2016-10-16] VITALS (8 sets, daily range): BP systolic 159–185; BP diastolic 96–104; PULSE 72–93; RESP 17–19
[2016-10-16] MEDS: ONDANSETRON 4 MG INJ IV PRN ×5 (02:20→20:25)
[2016-10-16] MEDS: DEXTROSE 5%-0.45% NACL 1,000 ML IV SCH ×4 (03:18→23:41)
[2016-10-16] MEDS: PANTOPRAZOLE 40 MG INJ IV SCH ×2 (05:24→17:46)
[2016-10-16] MEDS: LORAZEPAM 1 MG TAB PO SCH (05:24)
[2016-10-16 05:29] LABS: AMYLASE 95 U/L (11-123)
[2016-10-16] MEDS: hydrALAzine 20 MG INJ IV PRN ×2 (05:30→20:27)
[2016-10-16 05:51] LABS: ALBUMIN 4.3 g/dl (3.3-4.9)
[2016-10-16 05:54] LABS: BILIRUBIN,INDIRECT 0.2 mg/dl (0-1.1); BILIRUBIN,TOTAL 0.2 mg/dl (0.2-1.3)
[2016-10-16] MEDS ORDERED: LABETALOL HCL 20MG INJ IV ONE (06:00)
[2016-10-16] MEDS ORDERED: hydrALAzine 20 MG INJ IV ONE ×2 (06:19→09:30)
[2016-10-16] MEDS: HYDROmorphONE 0.2 MG/ML PCA IV SCH ×4 (06:33→23:48)
[2016-10-16] MEDS ORDERED: BENAZEPRIL 20 MG TAB PO SCH ×2 (07:33→09:00)
[2016-10-16] MEDS: HEPARIN 5,000 UNIT/0.5 ML SYG SC SCH ×2 (09:30→20:24)
[2016-10-16] MEDS: METOCLOPRAMIDE 10 MG INJ IV PRN ×2 (09:33→19:06)
[2016-10-16] MEDS ORDERED: CLONIDINE 0.1 MG/24 HR PATCH TRANSDERM ONE (11:00)
--- NOTE | 2016-10-16 12:02 | CONS ---
Date/Time of Note Date/Time of Note DATE: 10/16/16 TIME: 11:54 Assessment/Plan Assessment/Plan Chief Complaint/Hosp Course Impression: 1. Abdominal pain * Likely secondary to pancreatitis * CT abdomen 10-14-16: Pancreas: There is new relative decreased density in head and body of the pancreas with soft tissue stranding in peripancreatic fat adjacent to the head and body of the pancreas which could be secondary to acute pancreatitis. Underlying neoplasm is possible. * MRCP also showed 2 cm lesion at pancreatic head likely pancreatic pseudocyst 2. Acute pancreatitis with pancreatic pseudocyst 3. Fecal incontinence 4. High cholesterol 5. Diarrhea Recommendation: 1. stool studies 2. ERCP if lipase continues to rise for possible drainage of pancreatic pseudocyst per Dr. Gaston 3. continue NPO 4. increase IVF rate to 150 cc/hr 5. pain control 6. out-pt colonoscopy for fecal incontinence 7. stool studies Problems: Consultation Date/Type/Reason Admit Date/Time Oct 14, 2016 at 05:58 Initial Consult Date Type of Consultation: Gastroenterology 24 HR Interval Summary Free Text/Dictation abdominal pain improved, resting comfortably but arousable and goes back to sleep. Constitutional: improved Exam/Review of Systems Vital Signs Vitals Vital Signs Date Time Temp Pulse Resp B/P Pulse Ox O2 Delivery O2 Flow Rate FiO2 10/16/16 10:52 17 167/104 10/16/16 08:51 97.8 93 96 Room Air Intake and Output 10/15/16 10/15/16 10/16/16 15:00 23:00 07:00 Intake Total 1000 ml 1375 ml 1480 ml Output Total 1200 ml Balance 1000 ml 1375 ml 280 ml Exam Constitutional: alert, oriented, well developed Psych: nl mood/affect, no complaints Head: atraumatic, normocephalic Eyes: EOMI, nl conjunctiva, nl lids, nl sclera ENMT: mucosa pink and moist, nl external ears & nose, nl lips & teeth, nl nasal mucosa & septum Neck: non-tender, supple Respiratory: clear to auscultation, normal air movement Cardiovascular: nl pulses, regular rate and rhythm Gastrointestinal: bowel sounds, soft Results Result Diagram: 10/15/16 0450 10/15/16 0450 Results 24 hrs Laboratory Tests Test 10/16/16 04:28 Alanine Aminotransferase (ALT/SGPT) 41 Albumin 4.3 Alkaline Phosphatase 132 H Amylase Level 95 Aspartate Amino Transf (AST/SGOT) 41 Direct Bilirubin 0.00 Indirect Bilirubin 0.2 Lipase 851 H Total Bilirubin 0.2 Total Protein 8.0 Medications Medications Current Medications Dextrose/Sodium Chloride (D5-1/2ns) 1,000 ml @ 125 mls/hr Q8H IV Last administered on 10/16/16 11:00; Admin Dose 125 MLS/HR; Start 10/14/16 at 11:00 Ondansetron HCl (Zofran Inj) 4 mg Q6H PRN IV NAUSEA AND/OR VOMITING Last administered on 10/16/16 06:57; Admin Dose 4 MG; Start 10/14/16 at 08:00 Acetaminophen (Tylenol Tab) 650 mg Q6H PRN PO PAIN LEVEL 1-3 OR FEVER; Start at 08:00 Heparin Sodium (Porcine) (Heparin (5000 Units/0.5 ml)) 5,000 unit Q12 SC Last administered on 10/16/16 09:30; Admin Dose 5,000 UNIT; Start 10/14/16 at 11:00 Hydromorphone HCl (Dilaudid GYM SUPERVISOR) 1.0 MG DOSE 30... Q4PCA IV Last administered on 10/16/16 06:33; Admin Dose 6 MG; Start 10/14/16 at 16:00 Lorazepam (Ativan) 1 mg Q6 PO Last administered on 10/16/16 05:24; Admin Dose 1 MG; Start 10/14/16 at 18:00 Nicotine (Nicoderm 21 Mg/ 24hr) 1 patch QPM TRANSDERM Last administered on 10/15 20:50; Admin Dose 1 PATCH; Start 10/14/16 at 21:00 Metoclopramide HCl (Reglan) 10 mg Q6H PRN IV NAUSEA Last administered on 09:33; Admin Dose 10 MG; Start 10/15/16 at 00:00 Hydralazine HCl (Apresoline) 10 mg Q4H PRN IV ELEVATED SYSTOLIC BP Last administered on 10/16/16 05:30; Admin Dose 10 MG; Start 10/15/16 at 00:00 Naloxone HCl (Narcan) 0.2 mg Q2M PRN IV DECREASED REPIRATORY RATE; Start at 10:30 Pantoprazole (Protonix Iv) 40 mg BID@18 IV Last administered on 10/16/16t 05 :24; Admin Dose 40 MG; Start 10/15/16 at 18:00 TRISTEN TORRES MD Oct 16, 2016 12:01
--- NOTE | 2016-10-16 15:39 | PN ---
Date/Time of Note Date/Time of Note DATE: 10/16/16 TIME: 15:38 Assessment/Plan VTE Prophylaxis VTE Prophylaxis Intervention: SCD's Lines/Catheters IV Catheter Type (from Nrs): Peripheral IV Urinary Cath still in place: Yes Reason Cath still needed: other (indicate) (monitor I&O) Assessment/Plan Chief Complaint/Hosp Course Assessment and plan 1. Acute pancreatitis. Patient still with elevated lipase. IV hydration. Keep npo for now. Analgesics as needed. 2. Density in head and body of the pancreas with soft tissue stranding in peripancreatic fat adjacent to the head and body of the pancreas. GI following. Continue the recommendations. Of note imaging does report decrease in density 3. Leukocytosis secondary to #1. Afebrile at present. DVT prophylaxis: Early ambulation Disposition and plan: Await clinical improvement of pancreatitis. keep NPO. cont iv hydratin. analgesics per pain management physician. cont inpatient monitoring Discussed plan of care with Dr. Ayala Problems: Subjective 24 Hr Interval Summary Free Text/Dictation still with abdominal pain Exam/Review of Systems Vital Signs Vitals Vital Signs Date Time Temp Pulse Resp B/P Pulse Ox O2 Delivery O2 Flow Rate FiO2 10/16/16 13:12 17 10/16/16 10:52 167/104 10/16/16 08:51 97.8 93 96 Room Air Intake and Output 10/15/16 10/15/16 10/16/16 15:00 23:00 07:00 Intake Total 1000 ml 1375 ml 1480 ml Output Total 1200 ml Balance 1000 ml 1375 ml 280 ml Exam General: In mild distress secondary to reported abdominal pain Eyes: pupils equal round, Anicteric sclera Neck: Supple nontender, no JVD Cardiac: S1, S2 auscultated, regular rhythm and rate Pulmonary: No coarse rhonchi or breathing auscultated GI: Bowel sounds active. Tender upon palpation more noted on the upper abdominal quadrants Extremities: No edema bilateral lower extremities Skin: Clean dry and intact Neurologic: Alert to person place and time and situation Results Result Diagram: 10/15/16 0450 10/15/16 0450 Results 24 hrs Laboratory Tests Test 10/16/16 04:28 Alanine Aminotransferase (ALT/SGPT) 41 Albumin 4.3 Alkaline Phosphatase 132 H Amylase Level 95 Aspartate Amino Transf (AST/SGOT) 41 Direct Bilirubin 0.00 Indirect Bilirubin 0.2 Lipase 851 H Total Bilirubin 0.2 Total Protein 8.0 Medications Medications Current Medications Dextrose/Sodium Chloride (D5-1/2ns) 1,000 ml @ 150 mls/hr Q6H40M IV Last administered on 10/16/16 11:00; Admin Dose 125 MLS/HR; Start 10/14/16 at 11:00 Acetaminophen (Tylenol Tab) 650 mg Q6H PRN PO PAIN LEVEL 1-3 OR FEVER; Start at 08:00 Heparin Sodium (Porcine) (Heparin (5000 Units/0.5 ml)) 5,000 unit Q12 SC Last administered on 10/16/16 09:30; Admin Dose 5,000 UNIT; Start 10/14/16 at 11:00 Hydromorphone HCl (Dilaudid ASSOCIATE PATHOLOGIST) 1.0 MG DOSE 30... Q4PCA IV Last administered on 10/16/16 06:33; Admin Dose 6 MG; Start 10/14/16 at 16:00 Nicotine (Nicoderm 21 Mg/ 24hr) 1 patch QPM TRANSDERM Last administered on 10/15 20:50; Admin Dose 1 PATCH; Start 10/14/16 at 21:00 Metoclopramide HCl (Reglan) 10 mg Q6H PRN IV NAUSEA Last administered on 09:33; Admin Dose 10 MG; Start 10/15/16 at 00:00 Hydralazine HCl (Apresoline) 10 mg Q4H PRN IV ELEVATED SYSTOLIC BP Last administered on 10/16/16 05:30; Admin Dose 10 MG; Start 10/15/16 at 00:00 Naloxone HCl (Narcan) 0.2 mg Q2M PRN IV DECREASED REPIRATORY RATE; Start at 10:30 Pantoprazole (Protonix Iv) 40 mg BID@,18 IV Last administered on 10/16/16 05 :24; Admin Dose 40 MG; Start 10/15/16 at 18:00 Ondansetron HCl (Zofran Inj) 4 mg Q4H PRN IV NAUSEA AND/OR VOMITING Last administered on 10/16/16 12:21; Admin Dose 4 MG; Start 10/16/16 at 12:30 Lorazepam (Ativan) 1 mg Q6H PRN IV anxiety; Start 10/16/16 at 13:30 GEOFF CAT Oct 16, 2016 15:39
[2016-10-16] MEDS: NICOTINE (21 MG/24 HR) PATCH TRANSDERM SCH (20:22)
[2016-10-16] MEDS: LORAZEPAM 2 MG INJ IV PRN (20:28)
[2016-10-17] VITALS (7 sets, daily range): BP systolic 158–205; BP diastolic 90–120; PULSE 74–80; RESP 16–18
[2016-10-17] MEDS: ONDANSETRON 4 MG INJ IV PRN ×3 (01:02→21:42)
[2016-10-17] MEDS: PANTOPRAZOLE 40 MG INJ IV SCH ×2 (05:02→17:17)
[2016-10-17] MEDS: DEXTROSE 5%-0.45% NACL 1,000 ML IV SCH ×4 (05:02→21:42)
[2016-10-17] MEDS: LORAZEPAM 2 MG INJ IV PRN ×2 (05:02→21:42)
[2016-10-17] MEDS: HYDROmorphONE 0.2 MG/ML PCA IV SCH ×5 (05:11→22:02)
[2016-10-17 08:33] LABS: ALBUMIN 3.8 g/dl (3.3-4.9)
[2016-10-17 08:35] LABS: BILIRUBIN,INDIRECT 0.4 mg/dl (0-1.1); BILIRUBIN,TOTAL 0.4 mg/dl (0.2-1.3)
[2016-10-17 08:36] LABS: TOTAL PROTEIN 7.3 g/dl (6.1-8.1)
[2016-10-17 08:37] LABS: AMYLASE 55 U/L (11-123)
[2016-10-17] MEDS ORDERED: BENAZEPRIL 20 MG TAB PO SCH (09:00)
[2016-10-17] MEDS: HEPARIN 5,000 UNIT/0.5 ML SYG SC SCH ×2 (09:13→21:59)
--- NOTE | 2016-10-17 12:16 | PN ---
Date/Time of Note Date/Time of Note DATE: 10/17/16 TIME: 12:10 Assessment/Plan VTE Prophylaxis VTE Prophylaxis Intervention: LMWH Lines/Catheters IV Catheter Type (from Nrs): Peripheral IV Urinary Cath still in place: Yes Reason Cath still needed: urinary retention Assessment/Plan Chief Complaint/Hosp Course S: Pain controlled. No fever. O: Vss PE No pallor/ icterus/ adenopathy Reg S1S2, no m/r/g ctab Bs diminished/ present. Mod tenderness. Nd, no r/r/g. No flank ecchymosis No edema A/P 1. Acute on chronic pancreatitis; stable cont hydration/ pain management. 2. Chr pancreatitis; inflamm phlegmon -Lt ant pararenal space; likely pseudocysts -pancreatic body [2.3 x 2cm] w/o pancreatic ductal dilatation. -sp MRCP. Consider ERCP with drainage should pain and lipase continued to be abnormal. 3. History of alcoholism. Recent alcohol use. sp counseling consider AA. 4. Substance abuse/marijuana; consider cyclic vomiting syndrome; management includes benzodiazepam's 5. Tobacco abuse status post counseling 6. Splenectomy status; vaccines as appropriate 7. Possible chronic pain 8. Recent hematochezia; may need outpatient colonoscopy Problems: Exam/Review of Systems Vital Signs Vitals Vital Signs Date Time Temp Pulse Resp B/P Pulse Ox O2 Delivery O2 Flow Rate FiO2 10/17/16 08:36 98.2 59 16 172/103 96 10/17/16 01:28 Room Air Intake and Output 10/16/16 10/16/16 10/17/16 15:00 23:00 07:00 Intake Total 1000 ml 1800 ml Output Total 50 ml 1200 ml 1400 ml Balance 950 ml -1200 ml 400 ml Results Result Diagram: 10/15/16 0450 10/15/16 0450 Results 24 hrs Laboratory Tests Test 10/17/16 08:00 Alanine Aminotransferase (ALT/SGPT) 38 Albumin 3.8 Alkaline Phosphatase 108 Amylase Level 55 Aspartate Amino Transf (AST/SGOT) 57 H Direct Bilirubin 0.00 Indirect Bilirubin 0.4 Lipase 652 H Total Bilirubin 0.4 Total Protein 7.3 Medications Medications Current Medications Dextrose/Sodium Chloride (D5-1/2ns) 1,000 ml @ 150 mls/hr Q6H40M IV Last administered on 10/17/16t 05:02; Admin Dose 150 MLS/HR; Start 10/14/16 at 11:00 Acetaminophen (Tylenol Tab) 650 mg Q6H PRN PO PAIN LEVEL 1-3 OR FEVER; Start at 08:00 Heparin Sodium (Porcine) (Heparin (5000 Units/0.5 ml)) 5,000 unit Q12 SC Last administered on 10/17/16 09:13; Admin Dose 5,000 UNIT; Start 10/14/16 at 11:00 Hydromorphone HCl (Dilaudid SUPPORT SERVICES COORDINATOR) 1.0 MG DOSE 30... Q4PCA IV Last administered on 10/17/16 09:27; Admin Dose 6 MG; Start 10/14/16 at 16:00 Nicotine (Nicoderm 21 Mg/ 24hr) 1 patch QPM TRANSDERM Last administered on 10/16 20:22; Admin Dose 1 PATCH; Start 10/14/16 at 21:00 Metoclopramide HCl (Reglan) 10 mg Q6H PRN IV NAUSEA Last administered on 19:06; Admin Dose 10 MG; Start 10/15/16 at 00:00 Hydralazine HCl (Apresoline) 10 mg Q4H PRN IV ELEVATED SYSTOLIC BP Last administered on 10/16/16 20:27; Admin Dose 10 MG; Start 10/15/16 at 00:00 Naloxone HCl (Narcan) 0.2 mg Q2M PRN IV DECREASED REPIRATORY RATE; Start at 10:30 Pantoprazole (Protonix Iv) 40 mg BID@18 IV Last administered on 10/17/16 05 :02; Admin Dose 40 MG; Start 10/15/16 at 18:00 Ondansetron HCl (Zofran Inj) 4 mg Q4H PRN IV NAUSEA AND/OR VOMITING Last administered on 10/17/16 09:23; Admin Dose 4 MG; Start 10/16/16 at 12:30 Lorazepam (Ativan) 1 mg Q6H PRN IV anxiety Last administered on 10/17/16 05:02 ; Admin Dose 1 MG; Start 10/16/16 at 13:30 MANISH FRANCISCO MD Oct 17, 2016 12:16
[2016-10-17] MEDS: NICOTINE (21 MG/24 HR) PATCH TRANSDERM SCH ×2 (12:29→20:59)
[2016-10-17] MEDS ORDERED: CLONIDINE 0.2 MG/24 HR PATCH TRANSDERM SCH (13:30)
[2016-10-17] MEDS: hydrALAzine 20 MG INJ IV PRN ×2 (13:44→21:01)
--- NOTE | 2016-10-17 15:32 | CONS ---
Date/Time of Note Date/Time of Note DATE: 10/17/16 TIME: 15:30 Assessment/Plan Assessment/Plan Chief Complaint/Hosp Course Impression: 1. Abdominal pain * secondary to pancreatitis * CT abdomen 10-14-16: Pancreas: There is new relative decreased density in head and body of the pancreas with soft tissue stranding in peripancreatic fat adjacent to the head and body of the pancreas which could be secondary to acute pancreatitis. Underlying neoplasm is possible. * MRCP also showed 2 cm lesion at pancreatic head likely pancreatic pseudocyst 2. Acute pancreatitis with pancreatic pseudocyst 3. Fecal incontinence 4. High cholesterol 5. Diarrhea Recommendation: 1. stool studies 2. ERCP if lipase continues to rise for possible drainage of pancreatic pseudocyst per Dr. Gaston 3. continue NPO until lipase in normal ranges or if patient's abdominal pain resolves 4. increase IVF rate to 150 cc/hr 5. pain control 6. out-pt colonoscopy for fecal incontinence 7. stool studies Problems: Consultation Date/Type/Reason Admit Date/Time Oct 14, 2016 at 05:58 Type of Consultation: Gastroenterology 24 HR Interval Summary Free Text/Dictation lethargic, arousable but just falls back to sleep, essentially ignores my question Exam/Review of Systems Vital Signs Vitals Vital Signs Date Time Temp Pulse Resp B/P Pulse Ox O2 Delivery O2 Flow Rate FiO2 10/17/16 08:36 98.2 59 16 172/103 96 10/17/16 01:28 Room Air Intake and Output 10/16/16 10/16/16 10/17/16 14:59 22:59 06:59 Intake Total 1000 ml 1800 ml Output Total 50 ml 1200 ml 1400 ml Balance 950 ml -1200 ml 400 ml Exam Constitutional: well developed Psych: nl mood/affect, no complaints Head: atraumatic, normocephalic Eyes: nl conjunctiva, nl lids, nl sclera ENMT: mucosa pink and moist, nl external ears & nose, nl lips & teeth, nl nasal mucosa & septum Neck: non-tender, supple Respiratory: clear to auscultation, normal air movement Cardiovascular: nl pulses, regular rate and rhythm Gastrointestinal: bowel sounds, non-tender, soft Results Result Diagram: 10/15/16 0450 10/15/16 0450 Results 24 hrs Laboratory Tests Test 10/17/16 08:00 Alanine Aminotransferase (ALT/SGPT) 38 Albumin 3.8 Alkaline Phosphatase 108 Amylase Level 55 Aspartate Amino Transf (AST/SGOT) 57 H Direct Bilirubin 0.00 Indirect Bilirubin 0.4 Lipase 652 H Total Bilirubin 0.4 Total Protein 7.3 Medications Medications Current Medications Dextrose/Sodium Chloride (D5-1/2ns) 1,000 ml @ 150 mls/hr Q6H40M IV Last administered on 10/17/16 13:44; Admin Dose 150 MLS/HR; Start 10/14/16 at 11:00 Acetaminophen (Tylenol Tab) 650 mg Q6H PRN PO PAIN LEVEL 1-3 OR FEVER; Start at 08:00 Heparin Sodium (Porcine) (Heparin (5000 Units/0.5 ml)) 5,000 unit Q12 SC Last administered on 10/17/16 09:13; Admin Dose 5,000 UNIT; Start 10/14/16 at 11:00 Hydromorphone HCl (Dilaudid APPLICATION SUPPORT TECHNICIAN) 1.0 MG DOSE 30... Q4PCA IV Last administered on 10/17/16 13:41; Admin Dose 6 MG; Start 10/14/16 at 16:00 Nicotine (Nicoderm 21 Mg/ 24hr) 1 patch QPM TRANSDERM Last administered on 10/17 12:29; Admin Dose 1 PATCH; Start 10/14/16 at 21:00 Metoclopramide HCl (Reglan) 10 mg Q6H PRN IV NAUSEA Last administered on 19:06; Admin Dose 10 MG; Start 10/15/16 at 00:00 Hydralazine HCl (Apresoline) 10 mg Q4H PRN IV ELEVATED SYSTOLIC BP Last administered on 10/17/16 13:44; Admin Dose 10 MG; Start 10/15/16 at 00:00 Naloxone HCl (Narcan) 0.2 mg Q2M PRN IV DECREASED REPIRATORY RATE; Start at 10:30 Pantoprazole (Protonix Iv) 40 mg BID@06,18 IV Last administered on 10/17/16 05 :02; Admin Dose 40 MG; Start 10/15/16 at 18:00 Ondansetron HCl (Zofran Inj) 4 mg Q4H PRN IV NAUSEA AND/OR VOMITING Last administered on 10/17/16 09:23; Admin Dose 4 MG; Start 10/16/16 at 12:30 Lorazepam (Ativan) 1 mg Q6H PRN IV anxiety Last administered on 10/17/16 05:02 ; Admin Dose 1 MG; Start 10/16/16 at 13:30 Clonidine HCl (Catapres-Tts 2 Patch) 1 patch Q7D TRANSDERM Last administered on 10/17/16 13:39; Admin Dose 1 PATCH; Start 10/17/16 at 13:30 TRISTEN TORRES MD Oct 17, 2016 15:31
[2016-10-17] MEDS: ENALAPRILAT 1.25 MG INJ IV PRN (18:14)
[2016-10-18] VITALS (8 sets, daily range): BP systolic 169–226; BP diastolic 94–145; PULSE 72–81; RESP 18
[2016-10-18] MEDS: HYDROmorphONE 0.2 MG/ML PCA IV SCH ×6 (02:07→22:04)
[2016-10-18] MEDS: LORAZEPAM 2 MG INJ IV PRN ×3 (03:49→20:07)
[2016-10-18] MEDS: DEXTROSE 5%-0.45% NACL 1,000 ML IV SCH ×3 (03:53→18:10)
[2016-10-18 05:42] LABS: AMYLASE 73 U/L (11-123)
[2016-10-18 05:46] LABS: ALBUMIN 3.8 g/dl (3.3-4.9); POTASSIUM 3.9 mmol/L (3.5-5.1)
[2016-10-18 05:48] LABS: INR 0.95; PROTIME 12.7 Sec (12.2-14.2)
[2016-10-18 05:49] LABS: ALBUMIN/GLOBULIN RATIO 1.02; BILIRUBIN,INDIRECT 0.1 mg/dl (0-1.1); BILIRUBIN,TOTAL 0.1 mg/dl (0.2-1.3); CALCIUM 9.2 mg/dl (8.4-10.2); CREATININE 0.96 mg/dl (0.61-1.24); PHOSPHORUS 3.6 mg/dl (2.5-4.9); TOTAL PROTEIN 7.5 g/dl (6.1-8.1)
[2016-10-18 05:50] LABS: MAGNESIUM 1.6 mg/dl (1.7-2.5)
[2016-10-18] MEDS: PANTOPRAZOLE 40 MG INJ IV SCH ×2 (05:51→17:09)
--- NOTE | 2016-10-18 05:52 | CONS ---
Date/Time of Note Date/Time of Note DATE: 10/18/16 TIME: 05:48 Assessment/Plan Assessment/Plan Chief Complaint/Hosp Course Impression: 1. Abdominal pain * secondary to pancreatitis * CT abdomen 10-14-16: Pancreas: There is new relative decreased density in head and body of the pancreas with soft tissue stranding in peripancreatic fat adjacent to the head and body of the pancreas which could be secondary to acute pancreatitis. Underlying neoplasm is possible. * MRCP also showed 2 cm lesion at pancreatic head likely pancreatic pseudocyst 2. Acute pancreatitis with pancreatic pseudocyst 3. Fecal incontinence 4. High cholesterol 5. Diarrhea Recommendation: 1. f/u stool studies 2. ERCP if lipase continues to rise for possible drainage of pancreatic pseudocyst and/or pancreatic head lesion 3. continue NPO until lipase in normal ranges or if patient's abdominal pain resolves 4. increase IVF rate to 150 cc/hr 5. pain control 6. out-pt colonoscopy for fecal incontinence 7. repeat MRI in 6 months time to assess stability of pancreatic head lesion Problems: Consultation Date/Type/Reason Admit Date/Time Oct 14, 2016 at 05:58 Type of Consultation: Gastroenterology 24 HR Interval Summary Free Text/Dictation resting, got report that he wants to eat. still complains of diffuse abdominal pain Exam/Review of Systems Vital Signs Vitals Vital Signs Date Time Temp Pulse Resp B/P Pulse Ox O2 Delivery O2 Flow Rate FiO2 10/18/16 00:45 97.6 86 18 170/105 95 10/17/16 17:24 Room Air Intake and Output 10/17/16 10/17/16 10/18/16 15:00 23:00 07:00 Intake Total 1800 ml Balance 1800 ml Exam Constitutional: well developed Psych: nl mood/affect, no complaints Head: atraumatic, normocephalic Eyes: EOMI, nl conjunctiva, nl lids, nl sclera ENMT: mucosa pink and moist, nl external ears & nose, nl lips & teeth, nl nasal mucosa & septum Neck: non-tender, supple Respiratory: clear to auscultation, normal air movement Cardiovascular: nl pulses, regular rate and rhythm Gastrointestinal: bowel sounds, soft, tender (epigastric, no r/g) Results Result Diagram: 10/15/16 0450 10/15/16 0450 Results 24 hrs Laboratory Tests Test 10/17/16 08:00 10/18/16 04:30 Alanine Aminotransferase (ALT/SGPT) 38 Albumin 3.8 Alkaline Phosphatase 108 Amylase Level 55 Aspartate Amino Transf (AST/SGOT) 57 H Direct Bilirubin 0.00 Indirect Bilirubin 0.4 Lipase 652 H Total Bilirubin 0.4 Total Protein 7.3 INR International Normalized Ratio 0.95 Prothrombin Time 12.7 Prothrombin Time Ratio 1.0 Medications Medications Current Medications Dextrose/Sodium Chloride (D5-1/2ns) 1,000 ml @ 150 mls/hr Q6H40M IV Last administered on 10/18/16 03:53; Admin Dose 150 MLS/HR; Start 10/14/16 at 11:00 Acetaminophen (Tylenol Tab) 650 mg Q6H PRN PO PAIN LEVEL 1-3 OR FEVER; Start at 08:00 Heparin Sodium (Porcine) (Heparin (5000 Units/0.5 ml)) 5,000 unit Q12 SC Last administered on 10/17/16 21:59; Admin Dose 5,000 UNIT; Start 10/14/16 at 11:00 Hydromorphone HCl (Dilaudid INSPECTOR E[employer]AMES) 1.0 MG DOSE 30... Q4PCA IV Last administered on 10/18/16 02:07; Admin Dose 6 MG; Start 10/14/16 at 16:00 Nicotine (Nicoderm 21 Mg/ 24hr) 1 patch QPM TRANSDERM Last administered on 10/17 12:29; Admin Dose 1 PATCH; Start 10/14/16 at 21:00 Metoclopramide HCl (Reglan) 10 mg Q6H PRN IV NAUSEA Last administered on 19:06; Admin Dose 10 MG; Start 10/15/16 at 00:00 Hydralazine HCl (Apresoline) 10 mg Q4H PRN IV ELEVATED SYSTOLIC BP Last administered on 10/17/16 21:01; Admin Dose 10 MG; Start 10/15/16 at 00:00 Naloxone HCl (Narcan) 0.2 mg Q2M PRN IV DECREASED REPIRATORY RATE; Start at 10:30 Pantoprazole (Protonix Iv) 40 mg BID@,18 IV Last administered on 10/17/16 17 :17; Admin Dose 40 MG; Start 10/15/16 at 18:00 Ondansetron HCl (Zofran Inj) 4 mg Q4H PRN IV NAUSEA AND/OR VOMITING Last administered on 10/17/16 21:42; Admin Dose 4 MG; Start 10/16/16 at 12:30 Lorazepam (Ativan) 1 mg Q6H PRN IV anxiety Last administered on 10/18/16 03:49 ; Admin Dose 1 MG; Start 10/16/16 at 13:30 Clonidine HCl (Catapres-Tts 2 Patch) 1 patch Q7D TRANSDERM Last administered on 10/17/16 13:39; Admin Dose 1 PATCH; Start 10/17/16 at 13:30 Enalaprilat (Vasotec Iv) 1.25 mg Q6H PRN IV ELEVATED BLOOD PRESSURE Last administered on 10/17/16 18:14; Admin Dose 1.25 MG; Start 10/17/16 at 18:00 Hydralazine HCl (Apresoline) 25 mg Q8 PO Last administered on 10/17/16 22:43; Admin Dose 25 MG; Start 10/17/16 at 22:30 TRISTEN TORRES MD Oct 18, 2016 05:51
[2016-10-18 06:11] LABS: THYROID STIMULATING HORMONE 6.54 MIU/L (0.465-4.680)
[2016-10-18 06:34] LABS: BASOPHILS % 0.2 % (0.0-2.0); EOSINOPHILS # 0.8 10^3/ul (0.0-0.5); EOSINOPHILS % 6.3 % (0.0-7.0); HEMATOCRIT 47.2 % (42.0-52.0); HEMOGLOBIN 15.5 g/dl (14.0-18.0); LYMPHOCYTES # 3.6 10^3/ul (0.8-2.9); LYMPHOCYTES % 28.5 % (15.0-51.0); MEAN CORPUSCULAR HEMOGLOBIN 28.5 pg (29.0-33.0); MEAN CORPUSCULAR HGB CONC 32.9 g/dl (32.0-37.0); MEAN CORPUSCULAR VOLUME 86.5 fl (82.0-101.0); MEAN PLATELET VOLUME 8.9 fl (7.4-10.4); MONOCYTE # 1.7 10^3/ul (0.3-0.9); MONOCYTES % 13.7 % (0.0-11.0); NEUTROPHIL # 6.4 10^3/ul (1.6-7.5); NEUTROPHILS % 51.3 % (39.0-77.0); PLATELET COUNT 601 10^3/UL (140-440); RED BLOOD COUNT 5.46 10^6/ul (4.70-6.10); RED CELL DISTRIBUTION WIDTH 18.6 % (11.5-14.5); UNCORRECTED WBC 12.5 10^3/ul (4.8-10.8); WHITE BLOOD COUNT 12.5 10^3/ul (4.8-10.8)
[2016-10-18 06:35] LABS: CONDITION 1; LH ANALYZER COMMENTS 1
[2016-10-18] MEDS: hydrALAzine 20 MG INJ IV PRN ×3 (08:46→20:44)
[2016-10-18] MEDS: HEPARIN 5,000 UNIT/0.5 ML SYG SC SCH ×2 (08:52→22:03)
[2016-10-18] MEDS: ONDANSETRON 4 MG INJ IV PRN (08:55)
[2016-10-18 09:48] LABS: ALBUMIN 3.9 g/dl (3.3-4.9)
[2016-10-18 09:51] LABS: BILIRUBIN,INDIRECT 0.2 mg/dl (0-1.1); BILIRUBIN,TOTAL 0.2 mg/dl (0.2-1.3); TOTAL PROTEIN 7.2 g/dl (6.1-8.1)
--- NOTE | 2016-10-18 11:58 | PN ---
Date/Time of Note Date/Time of Note DATE: 10/18/16 TIME: 11:56 Assessment/Plan VTE Prophylaxis VTE Prophylaxis Intervention: SCD's Lines/Catheters IV C[facility] Type [facility] Peripheral IV Urinary Cath still in place: No Assessment/Plan Chief Complaint/Hosp Course A/P 1. Acute on chronic pancreatitis; stable cont hydration/ pain management. 2. Chr pancreatitis; inflamm phlegmon -Lt ant pararenal space; likely pseudocysts -pancreatic body [2.3 x 2cm] w/o pancreatic ductal dilatation. -sp MRCP. Consider ERCP with drainage should pain and lipase continued to be abnormal. 3. History of alcoholism. Recent alcohol use. sp counseling consider AA. 4. Substance abuse/marijuana; consider cyclic vomiting syndrome; management includes benzodiazepam's 5. Tobacco abuse status post counseling 6. Splenectomy status; vaccines as appropriate 7. Possible chronic pain 8. Recent hematochezia; may need outpatient colonoscopy Disposition: Follow up with ent surgeon recommendations Problems: Subjective 24 Hr Interval Summary Free Text/Dictation Patient continues to complain of having abdominal discomfort He continues to request pain medication for his abdominal discomfort N.p.o. Medical management and follow-up has been discussed with the patient Exam/Review of Systems Vital Signs Vitals Vital Signs Date Time Temp Pulse Resp B/P Pulse Ox O2 Delivery O2 Flow Rate FiO2 10/18/16 09:00 16 10/18/16 07:38 98.3 67 175/111 93 10/17/16 17:24 Room Air Intake and Output 10/17/16 10/17/16 10/18/16 15:00 23:00 07:00 Intake Total 1850 ml Output Total 1800 ml Balance 50 ml Exam General: The patient is well-developed, Not in acute distress. HEENT: Atraumatic, normocephalic. The pupils are equal and round . Neck: Supple with full range of motion. Chest: Normal expansion of the thorax during inspiration Lungs: Clear to auscultation bilaterally Heart: Normal S1-S2, Regular rhythm and rate. Abdomen: Soft , minimally tender, nondistended , bowel sounds are present. Extremities: Normal to inspection, no edema no cyanosis Neurologic: Normal mental status,The patient is awake, alert and oriented . Results Result Diagram: 10/18/16 0430 10/18/16 043 Results 24 hrs Laboratory Tests Test 10/18/16 04:30 Alanine Aminotransferase (ALT/SGPT) 54 Albumin 3.8 Albumin/Globulin Ratio 1.02 Alkaline Phosphatase 113 Amylase Level 73 Anion Gap 17 H Aspartate Amino Transf (AST/SGOT) 56 H Basophils # 0.0 Basophils % 0.2 Blood Morphology Comment Blood Urea Nitrogen 8 Calcium Level 9.2 Carbon Dioxide Level 24 Chloride Level 101 Creatinine 0.96 Direct Bilirubin 0.00 Eosinophils # 0.8 H Eosinophils % 6.3 Globulin 3.70 H Glucose Level 99 Hematocrit 47.2 Hemoglobin 15.5 Hemoglobin A1c 5.7 INR International Normalized Ratio 0.95 Indirect Bilirubin 0.1 Lipase 518 H Lymphocytes # 3.6 H Lymphocytes % 28.5 Magnesium Level 1.6 L Mean Corpuscular Hemoglobin 28.5 L Mean Corpuscular Hemoglobin Concent 32.9 Mean Corpuscular Volume 86.5 Mean Platelet Volume 8.9 Monocytes # 1.7 H Monocytes % 13.7 H Neutrophils # 6.4 Neutrophils % 51.3 Nucleated Red Blood Cells # 0.0 Nucleated Red Blood Cells % 0.0 Phosphorus Level 3.6 Platelet Count 601 H Potassium Level 3.9 Prothrombin Time 12.7 Prothrombin Time Ratio 1.0 Red Blood Count 5.46 Red Cell Distribution Width 18.6 H Sodium Level 138 Thyroid Stimulating Hormone (TSH) 6.540 H Total Bilirubin 0.1 L Total Protein 7.5 White Blood Count 12.5 H Medications Medications Current Medications Dextrose/Sodium Chloride (D5-1/2ns) 1,000 ml @ 150 mls/hr Q6H40M IV Last administered on 10/18/16 10:39; Admin Dose 150 MLS/HR; Start 10/14/16 at 11:00 Acetaminophen (Tylenol Tab) 650 mg Q6H PRN PO PAIN LEVEL 1-3 OR FEVER; Start at 08:00 Heparin Sodium (Porcine) (Heparin (5000 Units/0.5 ml)) 5,000 unit Q12 SC Last administered on 10/18/16 08:52; Admin Dose 5,000 UNIT; Start 10/14/16 at 11:00 Hydromorphone HCl (Dilaudid PRE PLANNING ADVISOR) 1.0 MG DOSE 30... Q4PCA IV Last administered on 10/18/16 09:34; Admin Dose 6 MG; Start 10/14/16 at 16:00 Nicotine (Nicoderm 21 Mg/ 24hr) 1 patch QPM TRANSDERM Last administered on 10/17 12:29; Admin Dose 1 PATCH; Start 10/14/16 at 21:00 Metoclopramide HCl (Reglan) 10 mg Q6H PRN IV NAUSEA Last administered on 19:06; Admin Dose 10 MG; Start 10/15/16 at 00:00 Hydralazine HCl (Apresoline) 10 mg Q4H PRN IV ELEVATED SYSTOLIC BP Last administered on 10/18/16 08:46; Admin Dose 10 MG; Start 10/15/16 at 00:00 Naloxone HCl (Narcan) 0.2 mg Q2M PRN IV DECREASED REPIRATORY RATE; Start at 10:30 Pantoprazole (Protonix Iv) 40 mg BID@18 IV Last administered on 10/18/16 05 :51; Admin Dose 40 MG; Start 10/15/16 at 18:00 Ondansetron HCl (Zofran Inj) 4 mg Q4H PRN IV NAUSEA AND/OR VOMITING Last administered on 10/18/16 08:55; Admin Dose 4 MG; Start 10/16/16 at 12:30 Lorazepam (Ativan) 1 mg Q6H PRN IV anxiety Last administered on 10/18/16 03:49 ; Admin Dose 1 MG; Start 10/16/16 at 13:30 Clonidine HCl (Catapres-Tts 2 Patch) 1 patch Q7D TRANSDERM Last administered on 10/17/16 13:39; Admin Dose 1 PATCH; Start 10/17/16 at 13:30 Enalaprilat (Vasotec Iv) 1.25 mg Q6H PRN IV ELEVATED BLOOD PRESSURE Last administered on 10/17/16 18:14; Admin Dose 1.25 MG; Start 10/17/16 at 18:00 Hydralazine HCl (Apresoline) 25 mg Q8 PO Last administered on 10/18/16 05:52; Admin Dose 25 MG; Start 10/17/16 at 22:30 HERMES GONZALEZ MD Oct 18, 2016 11:58
[2016-10-18] MEDS: ENALAPRILAT 1.25 MG INJ IV PRN (12:32)
[2016-10-18] MEDS ORDERED: MAGNESIUM OXIDE 400 MG TAB PO ONE (15:30)
--- NOTE | 2016-10-18 18:34 | CONS ---
Date/Time of Note Date/Time of Note DATE: 10/18/16 TIME: 18:19 Assessment/Plan Assessment/Plan Additional Assessment/Plan [facility] SUBSEQUENT CONSULT[facility] NOTE PLACE OF SERVICE: [facility], 4th floor. DATE OF CONSULTATION: 10/18/2016 IMPRESSION AND PLAN: Ongoing issues with recurrent acute on chronic pancreatitis. No obvious pancreas duct dilation. 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 Gallbladder is in place and could harbor sludge that would cause pancreatitis. Doubt that ETOH is a factor if his report of minor intake is accurate. Under extreme social stress which contributes to symptoms. With the above assessment, I have recommend the followin. RUQ US 2. HIDA scan 3. GI consultation re further workup for autoimmune pancreatitis, consideration for upper and lower endoscopy and evaluate need for pancreatic duct stenting/ interrogation 4. Continue current medical management with symptom control as well n.p.o. status. 5. Monitor labs including pancreas enzymes. 6. Multidisciplinary discussion. Thank you again for allowing me to participate in the care of this very pleasant gentleman and his wonderful family. If there are any questions, please feel free to call me at [phone]. TOTAL VISIT TIME: 45 minutes of which more than half were spent in face-to- face discussion with the patient as well as coordination of care between multiple physicians and providers. 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 Multiple admissions and visits to ED's in nearby hospitals. Upper endoscopy 2014 showed no evidence of a cyst gastrostomy remaining and no other major abnormality. + history of drug abuse as well as history of heavy alcohol abuse in the past, although he reports having no issues with alcohol since his operation as well as only using marijuana and not using any heavy drugs. + hypertension. Comorbidities: 1. History of hypertension. 2. History of significant alcohol abuse in the past. 3. History of significant drug abuse in the past. 4. 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 5. Status post laparoscopic hand-assisted distal splenectomy as well as cystogastrostomy December 2013. REASON FOR CONSULTATION: Pancreatitis REFERRING PHYSICIAN: David Baugh MD Dear Dr. Baugh, Thank you very much for asking me to remain involved as a neurosurgical nurse in management of Mr. Rai Luna. 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 I was kindly asked to consult to render a surgical opinion about his care after his admission for pancreatitis. During my visit, the patient was very emotional, crying and wanting to go home. Reported same abdominal pain that had somewhat improved since admission. At its worst, though, he described 10/10 crushing abdominal pain in the mid and upper quadrant without radiation to his back. No sig reported nausea or vomiting. He did not report any fevers or chills, difficulty with breathing or swallowing, issues with blood in his stool or urine, difficulty with his bowel or bladder habits other than the above-mentioned or new skin rashes, joint pain, musculoskeletal disease, neurologic, psychiatric, or psychologic problems. ALLERGIES: NO KNOWN DRUG ALLERGIES. MEDICATIONS (see EHR for more details): In the past, patient has been on: 1. Norvasc. 2. Creon. 3. Lisinopril. 4. Maalox. 5. Toprol. 6. Naprosyn. 7. Zofran. 8. Protonix. SOCIAL HISTORY: The patient lives with his family and has a daughter. He does not report current drinking or intravenous drug use. He does report ongoing use of marijuana. He does report smoking history. The patient reports smoking 10 to 15 cigarettes per day. FAMILY HISTORY: There is no significant reported family history of major medical, surgical or oncologic problems. There is also no history of hereditary pancreatitis or other major pancreatic issues in the family. REVIEW OF SYSTEMS: Other than the above-mentioned, there are no other pertinent positives or pertinent negatives in a complete 14-point review of systems. PHYSICAL EXAMINATION: GENERAL: The patient appears to be a very pleasant gentleman of non- descent, appearing stated age, well developed and well nourished, lying in bed comfortably and in no acute distress. His BMI is 31 (previously 24 Aug 2015, 15 Jan 2014). VITAL SIGNS: Reviewed (please see EHR) HEENT: His head is normocephalic and atraumatic. Extraocular muscles and hearing are grossly intact bilaterally and symmetrically. His sclerae are nonicteric. His oral cavity is clear. His oral mucosa appeared to be pink and moist. He has very poor dentition with some missing teeth. NECK: Supple. There is no lymphadenopathy or JVD. There is no submental, submandibular or supraclavicular lymphadenopathy. CHEST: Rises symmetrically with each breath, and he is breathing comfortably. There are no audible wheezes, rales, or rhonchi on the gross exam. HEART: His pulse is regular palpable on the right wrist. Capillary refill is normal. Carotid pulses are palpable bilaterally and symmetrically in his neck. Lower extremities contain no pitting edema around the ankles bilaterally and symmetrically. ABDOMEN: Demonstrates a well-healed, subcostal, left-sided incision from his operation. There is no evidence of erythema, edema, discharge or hernia around this incision site. Patient has mild tenderness to palpation in the upper midepigastrium. Abdomen is otherwise soft and nondistended. There is no evidence of organomegaly, ascites, caput medusae, or engorged subcutaneous veins. There are no peritoneal signs or guarding. SKIN: Appears to be pink and feels warm to touch. NEUROLOGIC: He is awake, alert, and follows commands appropriately. Emotional stressed and crying during the visit. LABORATORY DATA: See below IMAGING: See EHR. I've personally reviewed these images and I agree with their overall reported findings. Consultation Date/Type/Reason Admit Date/Time Oct 14, 2016 at 05:58 Initial Consult Date Type of Consultation: Gastroenterology Exam/Review of Systems Vital Signs Vitals Vital Signs Date Time Temp Pulse Resp B/P Pulse Ox O2 Delivery O2 Flow Rate FiO2 10/18/16 18:13 18 10/18/16 15:45 81 175/110 10/18/16 07:38 98.3 93 10/17/16 17:24 Room Air Intake and Output 10/17/16 10/17/16 10/18/16 15:00 23:00 07:00 Intake Total 1850 ml Output Total 1800 ml Balance 50 ml Results Result Diagram: 10/18/16 0430 10/18/16 0430 Results 24 hrs Laboratory Tests Test 10/18/16 04:30 Alanine Aminotransferase (ALT/SGPT) 54 Albumin 3.8 Albumin/Globulin Ratio 1.02 Alkaline Phosphatase 113 Amylase Level 73 Anion Gap 17 H Aspartate Amino Transf (AST/SGOT) 56 H Basophils # 0.0 Basophils % 0.2 Blood Morphology Comment Blood Urea Nitrogen 8 Calcium Level 9.2 Carbon Dioxide Level 24 Chloride Level 101 Creatinine 0.96 Direct Bilirubin 0.00 Eosinophils # 0.8 H Eosinophils % 6.3 Globulin 3.70 H Glucose Level 99 Hematocrit 47.2 Hemoglobin 15.5 Hemoglobin A1c 5.7 INR International Normalized Ratio 0.95 Indirect Bilirubin 0.1 Lipase 518 H Lymphocytes # 3.6 H Lymphocytes % 28.5 Magnesium Level 1.6 L Mean Corpuscular Hemoglobin 28.5 L Mean Corpuscular Hemoglobin Concent 32.9 Mean Corpuscular Volume 86.5 Mean Platelet Volume 8.9 Monocytes # 1.7 H Monocytes % 13.7 H Neutrophils # 6.4 Neutrophils % 51.3 Nucleated Red Blood Cells # 0.0 Nucleated Red Blood Cells % 0.0 Phosphorus Level 3.6 Platelet Count 601 H Potassium Level 3.9 Prothrombin Time 12.7 Prothrombin Time Ratio 1.0 Red Blood Count 5.46 Red Cell Distribution Width 18.6 H Sodium Level 138 Thyroid Stimulating Hormone (TSH) 6.540 H Total Bilirubin 0.1 L Total Protein 7.5 White Blood Count 12.5 H Medications Medications Current Medications Dextrose/Sodium Chloride (D5-1/2ns) 1,000 ml @ 150 mls/hr Q6H40M IV Last administered on 10/18/16 18:10; Admin Dose 150 MLS/HR; Start 10/14/16 at 11:00 Acetaminophen (Tylenol Tab) 650 mg Q6H PRN PO PAIN LEVEL 1-3 OR FEVER; Start at 08:00 Heparin Sodium (Porcine) (Heparin (5000 Units/0.5 ml)) 5,000 unit Q12 SC Last administered on 10/18/16 08:52; Admin Dose 5,000 UNIT; Start 10/14/16 at 11:00 Hydromorphone HCl (Dilaudid AUTOMOTIVE WORKER FOREMAN) 1.0 MG DOSE 30... Q4PCA IV Last administered on 10/18/16 18:13; Admin Dose 6 MG; Start 10/14/16 at 16:00 Nicotine (Nicoderm 21 Mg/ 24hr) 1 patch QPM TRANSDERM Last administered on 10/17 12:29; Admin Dose 1 PATCH; Start 10/14/16 at 21:00 Metoclopramide HCl (Reglan) 10 mg Q6H PRN IV NAUSEA Last administered on 19:06; Admin Dose 10 MG; Start 10/15/16 at 00:00 Hydralazine HCl (Apresoline) 10 mg Q4H PRN IV ELEVATED SYSTOLIC BP Last administered on 10/18/16 15:45; Admin Dose 10 MG; Start 10/15/16 at 00:00 Naloxone HCl (Narcan) 0.2 mg Q2M PRN IV DECREASED REPIRATORY RATE; Start at 10:30 Pantoprazole (Protonix Iv) 40 mg BID@,18 IV Last administered on 10/18/16 17 :09; Admin Dose 40 MG; Start 10/15/16 at 18:00 Ondansetron HCl (Zofran Inj) 4 mg Q4H PRN IV NAUSEA AND/OR VOMITING Last administered on 10/18/16 08:55; Admin Dose 4 MG; Start 10/16/16 at 12:30 Lorazepam (Ativan) 1 mg Q6H PRN IV anxiety Last administered on 10/18/16 13:31 ; Admin Dose 1 MG; Start 10/16/16 at 13:30 Clonidine HCl (Catapres-Tts 2 Patch) 1 patch Q7D TRANSDERM Last administered on 10/17/16 13:39; Admin Dose 1 PATCH; Start 10/17/16 at 13:30 Enalaprilat (Vasotec Iv) 1.25 mg Q6H PRN IV ELEVATED BLOOD PRESSURE Last administered on 10/18/16 12:32; Admin Dose 1.25 MG; Start 10/17/16 at 18:00 Hydralazine HCl (Apresoline) 25 mg Q8 PO Last administered on 10/18/16 13:31; Admin Dose 25 MG; Start 10/17/16 at 22:30 DENZEL HENDRICKSON M.D. 20, 2017 18:30
--- NOTE | 2016-10-18 19:30 | RADRPT ---
PROCEDURE: US Abdomen Limited . CLINICAL INDICATION: Abdominal pain with pancreatitis. TECHNIQUE: Multiple real-time images were acquired of the patient's right upper quadrant abdomen u tilizing a high resolution transducer. COMPARISON: CT October 14, 2016 FINDINGS: The liver measures 19.9 cm and demonstrates a coarsened echogenicity. The gallbladder is filled with a large amount of bile. No shadowing echogenic stones or masses are seen in the gallbladder. The g allbladder wall is not thickened at 2 mm. No pericholecystic fluid is noted. The common bile duct me asures 4 mm in diameter. The pancreas is not well visualized. Antegrade flow is seen in the portal vein. Right kidney measures 12.1 cm. Right kidney demonstrates a normal echogenicity. No hydronephrosis, masses or stones are noted. IMPRESSION: Diffuse fatty infiltration of an enlarged liver. Gallbladder filled with a large amount of bile. The gallbladder is otherwise unremarkable. Pancreas not well visualized. If characterization of this structure is needed repeat exam or CT/MRI is recommended. RPTAT: AA .David Coyle MD, MD Date Time Electronically viewed and signed by .David Coyle MD, MD on 10/18/2016 19:29 .P/
[2016-10-18] MEDS: NICOTINE (21 MG/24 HR) PATCH TRANSDERM SCH (20:04)
[2016-10-19 01:00] VITALS: BP 185/111
[2016-10-19] MEDS: DEXTROSE 5%-0.45% NACL 1,000 ML IV SCH ×3 (01:33→22:36)
[2016-10-19] MEDS: HYDROmorphONE 0.2 MG/ML PCA IV SCH ×5 (01:34→21:57)
[2016-10-19] MEDS: LORAZEPAM 2 MG INJ IV PRN ×4 (02:06→22:41)
[2016-10-19] MEDS: PANTOPRAZOLE 40 MG INJ IV SCH ×2 (05:26→18:06)
[2016-10-19 05:48] LABS: ALBUMIN 3.8 g/dl (3.3-4.9); POTASSIUM 3.8 mmol/L (3.5-5.1)
[2016-10-19 05:50] LABS: BILIRUBIN,INDIRECT 0.3 mg/dl (0-1.1); BILIRUBIN,TOTAL 0.3 mg/dl (0.2-1.3); CREATININE 0.99 mg/dl (0.61-1.24)
[2016-10-19 05:51] LABS: ALBUMIN/GLOBULIN RATIO 1.15; CALCIUM 9.4 mg/dl (8.4-10.2); MAGNESIUM 1.7 mg/dl (1.7-2.5); TOTAL PROTEIN 7.1 g/dl (6.1-8.1)
[2016-10-19 06:38] LABS: MEAN CORPUSCULAR HEMOGLOBIN 28.7 pg (29.0-33.0); MEAN CORPUSCULAR HGB CONC 33.4 g/dl (32.0-37.0); MEAN CORPUSCULAR VOLUME 85.9 fl (82.0-101.0); MEAN PLATELET VOLUME 8.8 fl (7.4-10.4); PLATELET COUNT 558 10^3/UL (140-440); RED BLOOD COUNT 5.24 10^6/ul (4.70-6.10); RED CELL DISTRIBUTION WIDTH 18.8 % (11.5-14.5); UNCORRECTED WBC 11.1 10^3/ul (4.8-10.8); WHITE BLOOD COUNT 11.1 10^3/ul (4.8-10.8)
[2016-10-19 06:49] LABS: CONDITION 1; LH ANALYZER COMMENTS 1
[2016-10-19] MEDS: HEPARIN 5,000 UNIT/0.5 ML SYG SC SCH ×2 (08:13→21:56)
[2016-10-19] MEDS: hydrALAzine 20 MG INJ IV PRN ×2 (08:15→16:39)
--- NOTE | 2016-10-19 08:45 | PN ---
Date/Time of Note Date/Time of Note DATE: 10/19/16 TIME: 08:42 Assessment/Plan Lines/Catheters IV Catheter Type (from [facility]): Peripheral IV Christina in Place (from Nrs): No Assessment/Plan Assessment/Plan [facility] Progress Note Date of Service: 10/19/16 Today's Impression & Plan: Appears improved. RUQ US showed no obvious stone or sludge. Awaiting HIDA. If also normal, patient can d/c when medically appropriate with outpatient f/u with interventional GI for pancreatic duct interrogation. No indication for acute surgical intervention. With the above assessment, I have recommend the followin. HIDA scan 2. Consider GI consultation re further workup for autoimmune pancreatitis, consideration for upper and lower endoscopy and evaluate need for pancreatic duct stenting/interrogation 3. Continue current medical management with symptom control 4. Can probably start PO intake 5. Monitor labs including pancreas enzymes. 6. Multidisciplinary discussion. 7. D/c planning Thank you again for allowing me to participate in the care of this very pleasant gentleman and his wonderful family. If there are any questions, please feel free to call me at [phone]. TOTAL VISIT TIME: 45 minutes of which more than half were spent in face-to- face discussion with the patient as well as coordination of care between multiple physicians and providers. 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 Multiple admissions and visits to ED's in nearby hospitals. Upper endoscopy 2014 showed no evidence of a cyst gastrostomy remaining and no other major abnormality. + history of drug abuse as well as history of heavy alcohol abuse in the past, although he reports having no issues with alcohol since his operation as well as only using marijuana and not using any heavy drugs. + hypertension. Comorbidities: 1. History of hypertension. 2. History of significant alcohol abuse in the past. 3. History of significant drug abuse in the past. 4. 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 5. Status post laparoscopic hand-assisted distal splenectomy as well as cystogastrostomy December 2013. Subjective: No major events or complaints; reported moderate to severe abd pain and under control with medications; no n/v/d; no sob or cp; + flatus; + BM; + activity Objective: Vitals: See below Exam: GENERAL: On exam, the patient was laying in bed and appeared to be comfortable and in no acute distress. ABDOMEN: Soft, nontender and nondistended. There are no peritoneal signs or guarding. SKIN: Skin appears to be pink and feels warm to touch. NEUROLOGIC: Patient is awake, alert, and follows commands appropriately. Exam/Review of Systems Vital Signs Vitals Vital Signs Date Time Temp Pulse Resp B/P Pulse Ox O2 Delivery O2 Flow Rate FiO2 10/19/16 05:00 18 10/19/16 01:00 185/111 10/18/16 20:33 99.3 69 95 10/17/16 17:24 Room Air Intake and Output 10/18/16 10/18/16 10/19/16 15:00 23:00 07:00 Intake Total 850 ml 975 ml 1800 ml Balance 850 ml 975 ml 1800 ml Results Result Diagram: 10/19/16 0513 10/19/16 0513 DENZEL HENDRICKSON M.D. Oct 19, 2016 08:45
[2016-10-19 09:54] LABS: BASOPHIL # 0.2 10^3/ul (0.0-0.1); EOSINOPHILS # 0.6 10^3/ul (0.0-0.5); LYMPHOCYTES # 3.7 10^3/ul (0.8-2.9); MONOCYTE # 1.8 10^3/ul (0.3-0.9); NEUTROPHIL # 4.9 10^3/ul (1.6-7.5)
[2016-10-19 09:55] LABS: ANISOCYTOSIS 2+; HYPOCHROMASIA 1+
[2016-10-19 10:00] VITALS: BP 174/103
--- NOTE | 2016-10-19 10:59 | PN ---
Date/Time of Note Date/Time of Note DATE: 10/19/16 TIME: 10:50 Assessment/Plan VTE Prophylaxis VTE Prophylaxis Intervention: SCD's Lines/Catheters IV [facility] Type (from [facility]): Peripheral IV Urinary Cath still in place: No Assessment/Plan Chief Complaint/Hosp Course A/P 1. Acute on chronic pancreatitis; stable cont hydration/ pain management. Review Appraiser and hepatic surgeon is consulted Follow-up HIDA scan 2. Chr pancreatitis; inflamm phlegmon -Lt ant pararenal space; likely pseudocysts -pancreatic body [2.3 x 2cm] w/o pancreatic ductal dilatation. consider upper endoscopy and colonoscopy with need for pancreatic duct stenting/interrogation by engine lathe operator and re further workup for autoimmune pancreatitis, -sp MRCP. Consider ERCP with drainage should pain and lipase continued to be abnormal. 3. History of alcoholism. Recent alcohol use. sp counseling consider AA. 4. Substance abuse/marijuana; consider cyclic vomiting syndrome; management includes benzo's 5. Tobacco abuse status post counseling 6. Splenectomy status; vaccines as appropriate 7. Possible chronic pain 8. Recent hematochezia; may need outpatient colonoscopy Disposition: Follow up with engine lathe operator recommendations Problems: Subjective 24 Hr Interval Summary Free Text/Dictation Patient denies of any chest pain or shortness of breath Minimal abdominal discomfort Requesting to be fed Exam/Review of Systems Vital Signs Vitals Vital Signs Date Time Temp Pulse Resp B/P Pulse Ox O2 Delivery O2 Flow Rate FiO2 10/19/16 05:00 18 10/19/16 01:00 185/111 10/18/16 20:33 99.3 69 95 10/17/16 17:24 Room Air Intake and Output 10/18/16 10/18/16 10/19/16 15:00 23:00 07:00 Intake Total 850 ml 975 ml 1800 ml Balance 850 ml 975 ml 1800 ml Exam General: The patient is well-developed, Not in acute distress. HEENT: Atraumatic, normocephalic. The pupils are equal and round . Neck: Supple with full range of motion. Chest: Normal expansion of the thorax during inspiration Lungs: Clear to auscultation bilaterally Heart: Normal S1-S2, Regular rhythm and rate. Abdomen: Soft , nontender, nondistended , bowel sounds are present. Extremities: Normal to inspection, no edema no cyanosis Neurologic: Normal mental status,The patient is awake, alert and oriented . Results Result Diagram: 10/19/16 0513 10/19/16 0513 Results 24 hrs Laboratory Tests Test 10/19/16 05:13 Alanine Aminotransferase (ALT/SGPT) 50 Albumin 3.8 Albumin/Globulin Ratio 1.15 Alkaline Phosphatase 108 Anion Gap 17 H Anisocytosis 2+ Aspartate Amino Transf (AST/SGOT) 50 H Basophils # 0.2 H Basophils % 2.0 Blood Morphology Comment Blood Urea Nitrogen 9 Calcium Level 9.4 Carbon Dioxide Level 25 Chloride Level 101 Creatinine 0.99 Direct Bilirubin 0.00 Eosinophils # 0.6 H Eosinophils % 5.0 Globulin 3.30 H Glucose Level 101 Hematocrit 45.0 Hemoglobin 15.0 Hypochromasia 1+ Indirect Bilirubin 0.3 Lipase 462 H Lymphocytes # 3.7 H Lymphocytes % 33.0 Magnesium Level 1.7 Mean Corpuscular Hemoglobin 28.7 L Mean Corpuscular Hemoglobin Concent 33.4 Mean Corpuscular Volume 85.9 Mean Platelet Volume 8.8 Monocytes # 1.8 H Monocytes % 16.0 H Neutrophils # 4.9 Neutrophils % 44.0 Platelet Count 558 H Potassium Level 3.8 Red Blood Count 5.24 Red Cell Distribution Width 18.8 H Sodium Level 139 Total Bilirubin 0.3 Total Protein 7.1 White Blood Count 11.1 H Medications Medications Current Medications Dextrose/Sodium Chloride (D5-1/2ns) 1,000 ml @ 150 mls/hr Q6H40M IV Last administered on 10/19/16 01:33; Admin Dose 150 MLS/HR; Start 10/14/16 at 11:00 Acetaminophen (Tylenol Tab) 650 mg Q6H PRN PO PAIN LEVEL 1-3 OR FEVER; Start at 08:00 Heparin Sodium (Porcine) (Heparin (5000 Units/0.5 ml)) 5,000 unit Q12 SC Last administered on 10/19/16 08:13; Admin Dose 5,000 UNIT; Start 10/14/16 at 11:00 Hydromorphone HCl (Dilaudid DIPPER CLOCK AND WATCH HANDS) 1.0 MG DOSE 30... Q4PCA IV Last administered on 10/19/16 09:18; Admin Dose 6 MG; Start 10/14/16 at 16:00 Nicotine (Nicoderm 21 Mg/ 24hr) 1 patch QPM TRANSDERM Last administered on 10/17 12:29; Admin Dose 1 PATCH; Start 10/14/16 at 21:00 Metoclopramide HCl (Reglan) 10 mg Q6H PRN IV NAUSEA Last administered on 19:06; Admin Dose 10 MG; Start 10/15/16 at 00:00 Hydralazine HCl (Apresoline) 10 mg Q4H PRN IV ELEVATED SYSTOLIC BP Last administered on 10/19/16 08:15; Admin Dose 10 MG; Start 10/15/16 at 00:00 Naloxone HCl (Narcan) 0.2 mg Q2M PRN IV DECREASED REPIRATORY RATE; Start at 10:30 Pantoprazole (Protonix Iv) 40 mg BID@18 IV Last administered on 10/19/16 05 :26; Admin Dose 40 MG; Start 10/15/16 at 18:00 Ondansetron HCl (Zofran Inj) 4 mg Q4H PRN IV NAUSEA AND/OR VOMITING Last administered on 10/18/16 08:55; Admin Dose 4 MG; Start 10/16/16 at 12:30 Lorazepam (Ativan) 1 mg Q6H PRN IV anxiety Last administered on 10/19/16 09:18 ; Admin Dose 1 MG; Start 10/16/16 at 13:30 Clonidine HCl (Catapres-Tts 2 Patch) 1 patch Q7D TRANSDERM Last administered on 10/17/16 13:39; Admin Dose 1 PATCH; Start 10/17/16 at 13:30 Enalaprilat (Vasotec Iv) 1.25 mg Q6H PRN IV ELEVATED BLOOD PRESSURE Last administered on 10/18/16 12:32; Admin Dose 1.25 MG; Start 10/17/16 at 18:00 Hydralazine HCl (Apresoline) 25 mg Q8 PO Last administered on 10/19/16 05:26; Admin Dose 25 MG; Start 10/17/16 at 22:30 HERMES GONZALEZ MD Oct 19, 2016 10:59
--- NOTE | 2016-10-19 14:07 | RADRPT ---
PROCEDURE: Nuclear medicine hepatobiliary scan CLINICAL INDICATION: Right upper quadrant pain. Pancreatitis TECHNIQUE: 8.5 mCi of technetium-99m Choletec was administered intravenously. Planar imaging of t he hepatobiliary system was performed. Delayed images were obtained. Images were reviewed on the h igh resolution PACS workstation. COMPARISON: None available FINDINGS: There is normal and homogeneous uptake throughout the hepatobiliary system. There is normal emptyin g of radiotracer into the biliary tract. The common bile duct is normal. The gallbladder is visual ized at 15 minutes. There is visualization of the small bowel at 30 minutes. IMPRESSION: 1. Negative hepatobiliary scan. There is normal filling of the gallbladder. 2. Patent common bile duct with normal visualization of the small bowel. RPTAT: PP Physician Adriana Date Time Electronically viewed and signed by Physician Adriana on 10/19/2016 14:06 ARMANI/
[2016-10-19 20:12] VITALS: BP 183/107; RESP 20
[2016-10-19] MEDS: NICOTINE (21 MG/24 HR) PATCH TRANSDERM SCH (21:00)
[2016-10-20] MEDS: HYDROmorphONE 0.2 MG/ML PCA IV SCH ×3 (01:23→08:14)
[2016-10-20] MEDS: DEXTROSE 5%-0.45% NACL 1,000 ML IV SCH (01:25)
[2016-10-20] MEDS: hydrALAzine 20 MG INJ IV PRN (02:30)
[2016-10-20] MEDS: LORAZEPAM 2 MG INJ IV PRN (04:48)
[2016-10-20 05:14] LABS: HEMATOCRIT 47.2 % (42.0-52.0); HEMOGLOBIN 15.4 g/dl (14.0-18.0); MEAN CORPUSCULAR HEMOGLOBIN 28.3 pg (29.0-33.0); MEAN CORPUSCULAR HGB CONC 32.7 g/dl (32.0-37.0); MEAN CORPUSCULAR VOLUME 86.6 fl (82.0-101.0); MEAN PLATELET VOLUME 8.6 fl (7.4-10.4); PLATELET COUNT 554 10^3/UL (140-440); RED BLOOD COUNT 5.45 10^6/ul (4.70-6.10); RED CELL DISTRIBUTION WIDTH 18.2 % (11.5-14.5); UNCORRECTED WBC 11.8 10^3/ul (4.8-10.8); WHITE BLOOD COUNT 11.8 10^3/ul (4.8-10.8)
[2016-10-20] MEDS: PANTOPRAZOLE 40 MG INJ IV SCH (05:25)
[2016-10-20 05:36] LABS: ALBUMIN 4.1 g/dl (3.3-4.9)
[2016-10-20 05:37] LABS: POTASSIUM 3.9 mmol/L (3.5-5.1)
[2016-10-20 05:39] LABS: ALBUMIN/GLOBULIN RATIO 1.13; BILIRUBIN,INDIRECT 0.2 mg/dl (0-1.1); BILIRUBIN,TOTAL 0.2 mg/dl (0.2-1.3); CALCIUM 9.6 mg/dl (8.4-10.2); CREATININE 0.94 mg/dl (0.61-1.24); TOTAL PROTEIN 7.7 g/dl (6.1-8.1)
[2016-10-20 05:40] LABS: MAGNESIUM 1.9 mg/dl (1.7-2.5)
[2016-10-20 05:42] LABS: CONDITION 1; LH ANALYZER COMMENTS 1; SUSPECT 1
[2016-10-20 08:23] VITALS: BP 183/119; RESP 21
[2016-10-20] MEDS: HEPARIN 5,000 UNIT/0.5 ML SYG SC SCH (09:00)
[2016-10-20 09:32] LABS: BASOPHIL # 0.5 10^3/ul (0.0-0.1); EOSINOPHILS # 0.5 10^3/ul (0.0-0.5); LYMPHOCYTES # 4.8 10^3/ul (0.8-2.9); MONOCYTE # 1.8 10^3/ul (0.3-0.9); NEUTROPHIL # 3.3 10^3/ul (1.6-7.5)
--- NOTE | 2016-10-20 11:01 | PDOCDIS ---
Discharge Instructions CONDITION Patient Condition: Good HOME CARE INSTRUCTIONS: Diet Instructions: Low Fat /CholesterolSpecial Diet: soft diet and advance as tolerated ACTIVITY: Activity Restrictions: Slowly Increase Activity Avoid heavy lifting Bathing Restrictions: Shower FOLLOW UP/APPOINTMENTS Appointments Follow up with GI as outpt Follow up with Dr. Cruz as out-pt HERMES GONZALEZ MD Oct 20, 2016 11:01
[2016-10-20] MEDS ORDERED: CLON1PAT2 TRANSDERM (11:08)
[2016-10-20] MEDS ORDERED: METO5TAB58 PO (11:08)
[2016-10-20] MEDS ORDERED: OXYC-279 PO (11:08)
[2016-10-20] MEDS ORDERED: OLOP2.5D BOTH EYES (11:08)
[2016-10-20] MEDS ORDERED: NICO1PAT6 TRANSDERM (11:08)
[2016-10-20] MEDS ORDERED: HYDR-3671 PO (11:08)
[2016-10-20] MEDS ORDERED: ONDA-43 PO (11:08)
[2016-10-20] MEDS ORDERED: PANT40TA3 PO (11:08)
--- NOTE | 2016-10-20 16:48 | DS ---
DATE OF ADMISSION: 10/14/2016 DATE OF DISCHARGE: 10/20/2016 CONSULTANTS: 1. Dr. Ivan Gaston, Gastroenterology. 2. Jesus Cruz, general surgery. PROCEDURES: None. IMAGIN. HIDA scan which showed negative hepatobiliary scan and there was a normal filling of the gallbla dder. Patent common bile duct with normal visualization of the small bowel. 2. Gallbladder ultrasound showed diffuse fatty infiltration and enlarged liver. Gallbladder filled with large amount of bowel. Gallbladder otherwise unremarkable. MRCP. 3. No evidence of cholelithiasis or cholecystitis. The common bile duct and intrahepatic ducts are normal in caliber and there is no choledocholithiasis. Change of pancreatitis with inflammatory ph legmon in the left anterior pararenal space and likely pseudocyst in the pancreatic body having mariana mate of 2.3 x 2 cm without pancreatic duct dilation. Has underlying pancreatic neoplasm or pancreat ic necrosis difficult to entirely exclude at the nonenhancing exam. Prior changes of prior splenect jazzy. DISCHARGE DIAGNOSES: 1. Acute on chronic pancreatitis, stable. GI and hepatic surgeon was consulted. 2. Chronic pancreatitis, likely secondary to pseudocyst. Patient will need upper endoscopy and colo noscopy, will need a pancreatic duct stenting/integration by engineer process. 3. History of alcoholism. Counseling was done. Cessation was advised. 4. History of substance abuse/marijuana abuse with cyclic vomiting syndrome. 5. Tobacco abuse post-counseling. 6. Splenectomy status, vaccine as appropriate. 7. Chronic pain syndrome. Discharged on pain medication. MEDICATIONS: 1. Clonidine patch 0.2 mg. 2. Hydralazine 50 mg. 3. Reglan 5 mg 4. Nicotine patch, 1 patch. 5. Pataday eyedrops. 6. Zofran. 7. Percocet. 8. Protonix. ALLERGIES: NO KNOWN DRUG ALLERGIES. HOSPITAL COURSE: This is a 36-year-old gentleman with past medical history of chronic pancreatitis, splenectomy, cyclic vomiting, nicotine abuse and alcohol abuse in remission, who presented to [facility] having abdominal pain radiating to his back x1 day. The patient state d the pain was severe, 10/10. He has a history of alcoholic pancreatitis and had a part of tail of t he pancreas resected. The patient has been seen and evaluated by engineer process and general jacob kyree as outpatient and has been advised to follow up with a engineer process at [facility] or [facility] for pa ncreatic duct stenting and integration. The patient has not been able to follow up with GI as of yet . The patient was started on IV fluid, pain medication, was made n.p.o., IV antibiotics. For his bl ood pressure patient was placed on clonidine patch, was continued on aggressive medical management a nd was seen and evaluated by engineer process and no surgical intervention was recommended by GI o r general surgery. The patient was eventually started on p.o. intake when his lipase improved and pa tient was pain free. At this time, the patient is asymptomatic without any chest pain, abdominal corina n, nausea, vomiting, diarrhea, has been able to tolerate oral intake and was discharged home in stab le condition. CONDITION AT TIME OF DISCHARGE: Stable. Dictated By: HERMES HUDSON/NTS Conf#: [id number] DID#: [id number]
== END 2016-10-20 11:50 | disposition home or self-care (01) | DRG 439 ==
LOC: E/R 03:18 → MS1 05:58
PROVIDERS: ADMIT Internal Medicine; ATTEND Internal Medicine
DX: K85.90 Acute pancreatitis without necrosis or infection, unspecified (principal); K86.3 Pseudocyst of pancreas; I10 Essential (primary) hypertension; G43.A0 Cyclical vomiting, in migraine, not intractable; G89.4 Chronic pain syndrome; K86.1 Other chronic pancreatitis; E78.00 Pure hypercholesterolemia, unspecified; F17.200 Nicotine dependence, unspecified, uncomplicated; F12.10 Cannabis abuse, uncomplicated; F10.21 Alcohol dependence, in remission; R19.7 Diarrhea, unspecified; R15.9 Full incontinence of feces; Z90.81 Acquired absence of spleen
CPT/HCPCS: 36415; 74176; 74181; 76705; 78226; 80053; 80076; 80306; 80307; 81001; 81003; 82150; 82306; 83036; 83690; 83735; 84100; 84443; 85025; 85610; 93005; 96361; 96372; 96374; 96375; 96376; A9537; C9113; J0360; J1170; J2060; J2270; J2405; J2765; J7030; J7042

== ENCOUNTER 2016-10-28 10:06 | Inpatient (IN) | payer BC ==
[~2016-10-28] VITALS: Ht 193 cm; Wt 102.2 kg
[~2016-10-28 10:06] MED LIST changes: -CEPH-443 PO; +CLON1PAT2 TRANSDERM; +HYDR-3671 PO; -HYDR-906 PO; +METO5TAB58 PO; +NICO1PAT6 TRANSDERM; +OLOP2.5D BOTH EYES; +ONDA-43 PO; +OXYC-279 PO; +PANT40TA3 PO
[2016-10-28] MEDS ORDERED: ONDANSETRON 4 MG INJ IV STA ×2 (11:22→12:36)
[2016-10-28] MEDS ORDERED: SOD CHLORIDE 0.9% 1,000 ML IV STA ×2 (11:22→12:36)
[2016-10-28] MEDS ORDERED: HYDROmorphONE 1 MG/ML SYG IV STA ×2 (11:22→12:36)
[2016-10-28 11:59] LABS: ADD SCAN DIFF NO
[2016-10-28 12:07] LABS: ABNORMAL IP MESSAGE 1; BASOPHIL # 0.1 10^3/ul (0.0-0.1); BASOPHILS % 0.8 % (0.0-2.0); EOSINOPHILS # 0.6 10^3/ul (0.0-0.5); EOSINOPHILS % 3.8 % (0.0-7.0); HEMOGLOBIN 15.4 g/dl (14.0-18.0); LYMPHOCYTES # 4.1 10^3/ul (0.8-2.9); LYMPHOCYTES % 26.9 % (15.0-51.0); MEAN CORPUSCULAR HEMOGLOBIN 27.9 pg (29.0-33.0); MEAN CORPUSCULAR HGB CONC 33.5 g/dl (32.0-37.0); MEAN CORPUSCULAR VOLUME 83.5 fl (82.0-101.0); MONOCYTE # 1.6 10^3/ul (0.3-0.9); MONOCYTES % 10.2 % (0.0-11.0); NEUTROPHIL # 8.8 10^3/ul (1.6-7.5); NEUTROPHILS % 57.9 % (39.0-77.0); PLATELET COUNT 634 10^3/UL (140-415); RED BLOOD COUNT 5.51 10^6/ul (4.70-6.10); RED CELL DISTRIBUTION WIDTH 18.5 % (11.5-14.5); WHITE BLOOD COUNT 15.2 10^3/ul (4.8-10.8)
[2016-10-28 12:11] LABS: ALBUMIN 4.1 g/dl (3.3-4.9); POTASSIUM 4.5 mmol/L (3.5-5.1)
[2016-10-28 12:14] LABS: ALBUMIN/GLOBULIN RATIO 0.95; BILIRUBIN,INDIRECT 0.3 mg/dl (0-1.1); BILIRUBIN,TOTAL 0.3 mg/dl (0.2-1.3); CALCIUM 10.2 mg/dl (8.4-10.2); CREATININE 1.36 mg/dl (0.61-1.24); TOTAL PROTEIN 8.4 g/dl (6.1-8.1)
[2016-10-28 12:18] LABS: INR 0.91; PROTIME 12.2 Sec (12.2-14.2)
[2016-10-28 12:19] LABS: PARTIAL THROMBOPLASTIN TIME 28.3 Sec (25.0-35.0)
[2016-10-28] MEDS ORDERED: ONDANSETRON 4 MG INJ IV PRN ×3 (12:30→20:00)
--- NOTE | 2016-10-28 12:42 | ERA ---
ER Documentation Chief Complaint Date/Time DATE: 10/28/16 TIME: 12:37 Chief Complaint "PANCREATITIS." RECENTLY DISCHARGED ON 10/19. HPI This is a 36-year-old male with a known history of chronic pancreatitis. The patient has a remote history of alcohol abuse and crystal meth use however the patient states he has been abstinent from illicit drugs for over 7 years. Roughly 3 years prior to arrival the patient had a splenectomy and removal of the tail of his pancreas performed by Dr. Cruz due to chronic pancreatitis. The patient was recently discharged from [facility] on October 20, 2016 after a prolonged hospital course for recurrent pancreatitis. He was seen at that time and evaluated by his surgeon Dr. Cruz. He is currently awaiting to undergo an outpatient colonoscopy at [facility]. The patient indicates that at roughly 2 AM, 10 hours prior to arrival, the patient awoke with severe epigastric pain, burning in sensation, nonradiating, 10 out of 10 in intensity. He had roughly 4 episodes of nonbloody nonbilious emesis. He states he has been unable to tolerate oral intake secondary to pain. He denies any hemoptysis hematemesis or melanotic stools. He denies any recent alcohol use or illicit drug use peer the patient does smoke tobacco. The patient indicated he phoned Dr. Cruz's office just prior to arrival. Dr. Cruz is not in his office today and therefore he spoke with the nurse who indicated he would benefit from going to the ER for IV fluid hydration and antiemetics given that the patient stated the pain was intolerable and he was unable to tolerate oral intake. ROS All systems reviewed and are negative except as per history of present illness. Medications Home Meds Active Scripts Oxycodone HCl/Acetaminophen (Percocet 5-325 mg Tablet) 1 Each Tablet, 1 EACH PO Q8H, #1 TAB Prov:HERMES GONZALEZ MD 10/20/16 Nicotine* (Nicotine* Patch) 21 mg/day Patch, 1 PATCH TRANSDERM QPM, #30 Prov:HERMES GONZALEZ MD 10/20/16 Ondansetron Hcl* (Zofran*) 4 Mg Tab, 4 MG PO Q4H Y for NAUSEA AND OR VOMITING, # 20 TAB Prov:HERMES GONZALEZ MD 10/20/16 Pantoprazole* (Protonix*) 40 Mg Tablet.dr, 40 MG PO DAILY, #30 TAB Prov:HERMES GONZALEZ MD 10/20/16 Olopatadine* (Pataday*) 0.2% - 2.5 Ml Drops, 1 DROP BOTH EYES DAILY, #1 EA Prov:HERMES GONZALEZ MD 10/20/16 Metoclopramide* (Reglan*) 5 Mg Tablet, 5 MG PO AC MEALS AND BEDTIME Y for NAUSEA , #30 TAB Prov:HERMES GONZALEZ MD 10/20/16 Hydralazine Hcl* (Hydralazine Hcl*) 25 Mg Tab, 50 MG PO Q8, #90 TAB Prov:HERMES GONZALEZ MD 10/20/16 Clonidine Patch (CLONIDINE PATCH) 0.2 Mg/24 Hr Patch, 1 PATCH TRANSDERM Q7D, #4 Prov:HERMES GONZALEZ MD 10/20/16 Allergies Allergies: Coded Allergies: No Known Drug Allergies (Verified Allergy, Unknown, 10/28/16) PMhx/Soc History of Surgery: Yes (SPLENECTOMY AND PARTIAL STOMACH RESECTION 3 Y.AGO) Anesthesia Reaction: No Hx Neurological Disorder: No Hx Respiratory Disorders: No Hx Cardiac Disorders: Yes (HTN) Hx Psychiatric Problems: No Hx Miscellaneous Medical Probl: No Hx Alcohol Use: Yes (SOCIALY) Hx Substance Use: Yes Hx Tobacco Use: Yes Physical Exam Vitals Vital Signs Date Time Temp Pulse Resp B/P Pulse Ox O2 Delivery O2 Flow Rate FiO2 10/28/16 10:28 98.6 72 20 176/119 98 Physical Exam Constitutional:Well-developed. Well-nourished. Patient screaming in pain HEENT:Normocephalic. Atraumatic.Pupils were equal round reactive to light. Moist mucous membranes.No tonsillar exudates. Neck: No nuchal rigidity. No lymphadenopathy. No posterior cervical spine tenderness or step-offs. Respiratory: Not using accessory muscles of respiration.Lungs were clear to auscultation bilaterally. No rhonchi. No rales. No wheezing. Cardiovascular: Regular rate regular rhythm.No murmurs. No rubs were appreciated.S1, S2 normal. Distal pulses are palpable 2+ bilaterally. GI: Abdomen was soft. Epigastric discomfort. Non Distended. No pulsatile abdominal masses or bruits. No rebound. No guarding. Bowel sounds were present and normal. Muscle skeletal: Full range of motion of both the upper and lower extremities bilaterally.Normal muscle tone.No assymetrical calf tenderness or swelling. Skin: No petechia, no purpura. No lesions on the palms or the soles of the feet. No maculopapular rash. NEURO: Patient was alert, awake, orientated x3.No facial droop. Gait observed and normal with no ataxia.Speech had regular rate and rhythm. No focal neurological deficits. Result Diagram: 10/28/16 1140 10/28/16 1140 Results 24 hrs Laboratory Tests Test 10/28/16 11:40 Activated Partial Thromboplast Time 28.3Sec Alanine Aminotransferase (ALT/SGPT) 37IU/L Albumin 4.1g/dl Albumin/Globulin Ratio 0.95 Alkaline Phosphatase 117IU/L Amylase Level 442U/L Anion Gap 18 Aspartate Amino Transf (AST/SGOT) 22IU/L Basophils # 0.110^3/ul Basophils % 0.8% Blood Urea Nitrogen 15mg/dl Calcium Level 10.2mg/dl Carbon Dioxide Level 27mmol/L Chloride Level 103mmol/L Creatinine 1.36mg/dl Direct Bilirubin 0.00mg/dl Eosinophils # 0.610^3/ul Eosinophils % 3.8% Globulin 4.30g/dl Glucose Level 103mg/dl Hematocrit 46.0% Hemoglobin 15.4g/dl INR International Normalized Ratio 0.91 Indirect Bilirubin 0.3mg/dl Lipase Pending Lymphocytes # 4.110^3/ul Lymphocytes % 26.9% Mean Corpuscular Hemoglobin 27.9pg Mean Corpuscular Hemoglobin Concent 33.5g/dl Mean Corpuscular Volume 83.5fl Mean Platelet Volume 10.0fl Monocytes # 1.610^3/ul Monocytes % 10.2% Neutrophils # 8.810^3/ul Neutrophils % 57.9% Nucleated Red Blood Cells # 0.010^3/ul Nucleated Red Blood Cells % 0.0/100WBC Platelet Count 11037^3/UL Potassium Level 4.5mmol/L Prothrombin Time 12.2Sec Prothrombin Time Ratio 1.0 Red Blood Count 5.5110^6/ul Red Cell Distribution Width 18.5% Sodium Level 143mmol/L Total Bilirubin 0.3mg/dl Total Protein 8.4g/dl White Blood Count 15.210^3/ul Current Medications Medications (Trade) Dose Ordered Sig/Marlo Route PRN Reason Start Time Stop Time Status Last Admin Dose Admin Sodium Chloride (NS) 1,000 ml @ 1,000 mls/hr Q1H STAT IV 10/28/16 11:22 10/28/16 12:21 DC 10/28/16 11:49 Hydromorphone HCl (Dilaudid) 1 mg ONCE STAT IV 10/28/16 11:22 10/28/16 11:23 DC 10/28/16 11:50 Ondansetron HCl (Zofran Inj) 4 mg ONCE STAT IV 10/28/16 11:22 10/28/16 11:23 DC 10/28/16 11:50 Ondansetron HCl (Zofran Inj) 4 mg BRIDGE ORDER PRN IV NAUSEA AND/OR VOMITING 10/28/16 12:30 10/29/16 12:29 Procedures/MDM The patient presented to the emergency department with epigastric pain. My differential diagnosis included but was not limited to abdominal aortic aneurysm , choledocholithiasis, gallstone ileus, renal colic, pyelonephritis, pancreatitis, peptic ulcer disease, atypical myocardical infarction, mesenteric ischemia, GERD, pulmonary infarction. The patient was placed on a cardiac nurse practitioner, continuous pulse oximetry and IV access was established by nursing staff. I did not feel is necessary to repeat any radiographic imaging as the patient had a recent HIDA scan that showed negative hepatobiliary scan and there was a normal filling of the gallbladder. The patient also had an MRCP. The common bile duct and intrahepatic ducts were normal in caliber and there was no choledocholithiasis. There was no elevation of LFTs to suggest ductal obstruction, cholangitis, cholecystiitis or hepatitis. I did feel the patient's symptoms were result of an exacerbation of his chronic pancreatitis. The patient will be admitted for observation under the care of the hospitalist Dr. Ayala as the patient received multiple doses of analgesic medication in the emergency department with no improvement of his symptoms. He was made n.p.o. given IV fluids Departure Diagnosis: Primary Impression: Pancreatitis Qualified Code: K86.1 - Chronic pancreatitis, unspecified pancreatitis type Additional Impression: Intractable pain Condition: Serious BRYCE OLMOS Oct 28, 2016 12:42
[2016-10-28] MEDS ORDERED: hydrALAzine 20 MG INJ ONE (13:24)
[2016-10-28 13:30] VITALS: TEMP 98
[2016-10-28] MEDS ORDERED: SOD CHLORIDE 0.9% 1,000 ML IV SCH (13:34)
[2016-10-28] MEDS ORDERED: NA PHOSPHATE/BIPHOS 133 ML ENEMA PR PRN (14:00)
[2016-10-28] MEDS ORDERED: MAGNESIUM HYDROXIDE 30ML CUP PO PRN (14:00)
[2016-10-28] MEDS ORDERED: hydrALAzine 20 MG INJ IV ONE (14:00)
[2016-10-28] MEDS ORDERED: ALBUTEROL/IPRATROPIUM (NEB) 3 ML AMP HHN PRN (14:00)
[2016-10-28] MEDS ORDERED: NITROGLYCERIN (SL) 0.4 MG TAB SL PRN (14:00)
[2016-10-28] MEDS ORDERED: ACETAMINOPHEN 325 MG TAB PO PRN (14:00)
[2016-10-28] MEDS ORDERED: HYDROCODONE/APAP (5/325) TAB PO PRN (14:00)
[2016-10-28] MEDS ORDERED: LORAZEPAM 2 MG INJ IV PRN ×2 (14:00→20:00)
[2016-10-28] MEDS ORDERED: DOCUSATE SODIUM 100 MG CAP PO PRN (14:00)
[2016-10-28] MEDS ORDERED: NACL 0.9% 3 ML SYG IV SCH (14:00)
[2016-10-28 14:15] VITALS: Ht 193 cm; Wt 102.2 kg
[2016-10-28 14:30] VITALS: BP 196/40; PULSE 79; RESP 16
[2016-10-28] MEDS ORDERED: HYDROmorphONE 1 MG/ML SYG IV PRN ×2 (14:30)
[2016-10-28 14:45] VITALS: BP 189/114; PULSE 69; RESP 18
[2016-10-28] MEDS: DEXTROSE 5%-0.9% NACL 1,000 ML IV SCH (14:58)
[2016-10-28 15:06] LABS: INR 0.93; PROTIME 12.5 Sec (12.2-14.2)
[2016-10-28 15:07] LABS: PARTIAL THROMBOPLASTIN TIME 29.2 Sec (25.0-35.0)
[2016-10-28] MEDS: ENALAPRILAT 1.25 MG INJ IV PRN (15:11)
--- NOTE | 2016-10-28 15:23 | HP ---
DATE OF ADMISSION: 10/28/2016 CHIEF COMPLAINT: Abdominal pain. HISTORY OF PRESENT ILLNESS: A 36-year-old male who was recently hospitalized here at our hospital f rom 10/14/2016 to 10/20/2016. At that time he was treated for acute on chronic pancreatitis. He pr esents once again with abdominal pain and positive chills. PAST MEDICAL HISTORY: Does include chronic pancreatitis, prior alcoholism, substance abuse and joaquina tiffanie use, with cyclic vomiting syndrome in the past. Tobacco abuse, post-counseling. Prior splene ctomy and chronic pain syndrome. He has been having abdominal pain going on for the last 2 days. It got worse at 2:00 a.m. this morning. He called his outpatient doctor's office, Dr. Jesus Cruz, who is the surgeon who had seen the patient before because of the patient's history of splenectomy a nd partial pancreatectomy in the past. He is presently in the process of trying to get authorized t o go to [facility] for a colonoscopy and further workup of his chronic pancreatitis. In any event, he call ed the office today because the pain symptoms were severe and they instructed him to come to the ER. Again, he has been having vomiting symptoms, minimal coffee-ground emesis, but now more non-biliou s, non-bloody. Some positive chills. No significant fevers. No dizziness or loss of consciousness . No diarrhea, no constipation. No chest pain, no shortness of breath. When he came into the ER t [place] he was found with a lipase of 8,900. When he was discharged on 10/20/2016 his lipase was actua lly in the 435 range, which appears to be his baseline. He also came in today with mild renal insuf ficiency with a creatinine of 1.3. He was given IV fluids and pain medicines in the ER today. PAST MEDICAL HISTORY: As stated above. ALLERGIES: NO KNOWN DRUG ALLERGIES. HOME MEDICATIONS: 1. He takes nicotine transdermal 21 mg daily. 2. Clonidine patch 0.2 mg q. weekly. 3. Hydralazine 50 mg q.8h. 4. Percocet 5/325 q.8 p.r.n. 5. Pataday in both eyes daily. 6. Reglan 5 mg p.o. with meals and at bedtime p.r.n. 7. Zofran 4 mg q.4 p.r.n. 8. Protonix 40 mg daily. PAST SURGICAL HISTORY: Splenectomy and a cystogastrostomy in the past. 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 Portal hypertension the past with varice s. Pancreatic pseudocyst in the past. FAMILY HISTORY: Noncontributory. SOCIAL HISTORY: Denies any current alcohol abuse. He does admit to smoking marijuana daily as well . Denies cigarette use. PHYSICAL EXAMINATION: VITAL SIGNS: Today T-max 98.6, pulse 72, respirations 20, blood pressure 176/119, saturating at 98% on room air. GENERAL: The patient is lying in bed in moderate to severe distress, but alert. HEENT: Pupils are equal, round, and react to light. Extraocular muscles intact. NECK: Supple. No thyromegaly. LUNGS: Clear to auscultation bilaterally. CARDIOVASCULAR: S1, S2 heard. No rubs or gallops. ABDOMEN: Tenderness to palpation in the epigastric area, nondistended. Normal bowel sounds. No re bound or guarding. MUSCULOSKELETAL: No lower extremity edema bilaterally. NEUROLOGIC: No focal deficits. LABORATORY: WBC 15.2, hemoglobin 15.4, hematocrit 46.0, platelets 634. Again, lipase is 8900. His BMP is essentially normal except his BUN is 15, creatinine is 1.36. LFTs are normal. Amylase is 4 42, it is elevated. He had no imaging studies performed today. ASSESSMENT AND PLAN: A 36-year-old male coming in with acute on chronic pancreatitis and renal insu fficiency. 1. Abdominal pain secondary to acute on chronic pancreatitis. Admit to the med/surg floor. Will g et an hepatobiliary surgery consult with Dr. Cruz. Keep him n.p.o., give him aggressive IV fluid hydration and antiemetic medicines. Pain control medicines as well. Will check a TSH, A1c and lipi d panel. 2. History of alcohol abuse. No signs of any DTs or withdrawal, but will check an ethanol panel. Anil owens is also on IV fluids. 3. Prior smoking history. Will put him on a continuous nicotine patch at home, although he denies any cigarette use presently, though it is unclear. 4. History of chronic pain syndrome. For now will cautiously put him on Dilaudid. If there is any worsening of pain symptoms, will get a pain management doctor consult. 5. Gastrointestinal prophylaxis. PPI. 6. Deep venous thrombosis prophylaxis. Sequential compression devices. Dictated By: NITHYA CALDWELL Conf#: [id number] DID#: [id number]
[2016-10-28 15:30] VITALS: BP 168/102; PULSE 61; RESP 18
[2016-10-28] MEDS ORDERED: CLONIDINE 0.2 MG/24 HR PATCH TRANSDERM SCH (15:30)
[2016-10-28] MEDS: LORAZEPAM 2 MG INJ IV PRN ×3 (15:42→22:12)
[2016-10-28] MEDS ORDERED: hydrALAzine 20 MG INJ IV STA (15:48)
[2016-10-28 16:44] VITALS: BP 164/99; PULSE 62; RESP 18
[2016-10-28] MEDS: [UNRECOGNIZED DRUG - REMARK] XX SCH (17:00)
[2016-10-28] MEDS: HYDROmorphONE 1 MG/ML SYG IV PRN ×2 (18:25→21:35)
[2016-10-28] MEDS: ONDANSETRON INJ 8 MG in SOD CHLORIDE 0.9% 50 ML IV PRN (18:25)
[2016-10-28] MEDS: morphine 2 MG INJ IV PRN (20:38)
[2016-10-28] MEDS: TRIMETHOBENZAMIDE 100 MG/ML VIAL IM PRN (20:46)
[2016-10-28] MEDS: hydrALAzine 20 MG INJ IV PRN (20:55)
[2016-10-28 21:00] VITALS: BP 195/130; PULSE 88; RESP 18
[2016-10-28] MEDS: NICOTINE (21 MG/24 HR) PATCH TRANSDERM SCH (21:00)
[2016-10-29] MEDS: DEXTROSE 5%-0.9% NACL 1,000 ML IV SCH ×3 (00:23→20:51)
[2016-10-29] MEDS: HYDROmorphONE 1 MG/ML SYG IV PRN ×5 (00:24→13:06)
[2016-10-29 00:25] VITALS: BP 168/97; RESP 20
[2016-10-29] MEDS: [UNRECOGNIZED DRUG - REMARK] XX SCH ×2 (01:00→09:00)
[2016-10-29] MEDS: morphine 2 MG INJ IV PRN (01:38)
[2016-10-29] MEDS: LORAZEPAM 2 MG INJ IV PRN ×3 (04:41→23:38)
[2016-10-29 05:48] LABS: ADD SCAN DIFF NO
[2016-10-29] MEDS ORDERED: PANTOPRAZOLE 40 MG INJ IV SCH (06:00)
[2016-10-29] MEDS: hydrALAzine 20 MG INJ IV PRN ×4 (06:04→23:44)
[2016-10-29 06:10] LABS: CHOL/HDL RATIO 5.6 RATIO
[2016-10-29 06:23] LABS: ABNORMAL IP MESSAGE 1; BASOPHIL # 0.1 10^3/ul (0.0-0.1); BASOPHILS % 0.8 % (0.0-2.0); EOSINOPHILS # 0.8 10^3/ul (0.0-0.5); EOSINOPHILS % 5.8 % (0.0-7.0); HEMATOCRIT 41.9 % (42.0-52.0); LYMPHOCYTES # 4.3 10^3/ul (0.8-2.9); LYMPHOCYTES % 29.4 % (15.0-51.0); MEAN CORPUSCULAR HEMOGLOBIN 28.1 pg (29.0-33.0); MEAN CORPUSCULAR HGB CONC 33.4 g/dl (32.0-37.0); MEAN PLATELET VOLUME 10.1 fl (7.4-10.4); MONOCYTE # 1.5 10^3/ul (0.3-0.9); MONOCYTES % 10.5 % (0.0-11.0); NEUTROPHIL # 7.7 10^3/ul (1.6-7.5); NEUTROPHILS % 53.2 % (39.0-77.0); PLATELET COUNT 595 10^3/UL (140-415); RED BLOOD COUNT 4.99 10^6/ul (4.70-6.10); RED CELL DISTRIBUTION WIDTH 18.2 % (11.5-14.5); WHITE BLOOD COUNT 14.5 10^3/ul (4.8-10.8)
[2016-10-29 06:37] LABS: THYROID STIMULATING HORMONE 3.92 MIU/L (0.465-4.680)
[2016-10-29] MEDS: ONDANSETRON INJ 8 MG in SOD CHLORIDE 0.9% 50 ML IV PRN (06:40)
[2016-10-29 07:28] LABS: POTASSIUM 4.3 mmol/L (3.5-5.1)
[2016-10-29 07:30] LABS: CREATININE 1.15 mg/dl (0.61-1.24)
[2016-10-29 07:31] LABS: CALCIUM 9.3 mg/dl (8.4-10.2); MAGNESIUM 1.8 mg/dl (1.7-2.5); PHOSPHORUS 4.6 mg/dl (2.5-4.9)
[2016-10-29 08:00] VITALS: BP 167/95; RESP 18
[2016-10-29] MEDS: OLOPATADINE 0.1% 5 ML OPH BOTH EYES SCH ×2 (09:00→09:25)
[2016-10-29] MEDS: TRIMETHOBENZAMIDE 100 MG/ML VIAL IM PRN (09:25)
[2016-10-29] MEDS: METOCLOPRAMIDE 10 MG INJ IV SCH ×2 (10:55→12:28)
[2016-10-29 12:30] VITALS: BP 179/104; PULSE 85
--- NOTE | 2016-10-29 12:39 | PN ---
Date/Time of Note Date/Time of Note DATE: 10/29/16 TIME: 12:37 Assessment/Plan VTE Prophylaxis VTE Prophylaxis Intervention: SCD's Lines/Catheters IV Catheter Type (from Nrs): Peripheral IV Urinary Cath still in place: No Assessment/Plan Chief Complaint/Hosp Course ASSESSMENT AND PLAN: A 36-year-old male coming in with acute on chronic pancreatitis and renal insufficiency. 1. Abdominal pain secondary to acute on chronic pancreatitis - lipase trending down, still elevated (9000 -> 1800) - keep NPO, IVF, f/u surgery consult with Dr. Cruz. - antiemetic medicines. Pain control medicines as wel - will also get pain mngt consult 2. History of alcohol abuse. No signs of any DTs or withdrawal - monitor, IV fluids. 3. Prior smoking history - -nicotine patch at home, although he denies any cigarette use presently, though it is unclear. 4. History of chronic pain syndrome -l cautiously put him on Dilaudid, pain management doctor consult. 5. Gastrointestinal prophylaxis. PPI. 6. Deep venous thrombosis prophylaxis. Sequential compression devices. Problems: Subjective 24 Hr Interval Summary Free Text/Dictation Pt still complaining of abd pain. Asking for Zofran and dilaudid. No acute events overnight. Exam/Review of Systems Vital Signs Vitals Vital Signs Date Time Temp Pulse Resp B/P Pulse Ox O2 Delivery O2 Flow Rate FiO2 10/29/16 08:00 98.0 18 18 167/95 98 10/28/16 21:00 Room Air Intake and Output 10/28/16 10/28/16 10/29/16 15:00 23:00 07:00 Intake Total 200 ml 1200 ml Output Total 650 ml 1100 ml Balance -450 ml 100 ml Exam GENERAL: The patient is lying in bed in moderate distress, but alert. HEENT: Pupils are equal, round, and react to light. Extraocular muscles intact. NECK: Supple. No thyromegaly. LUNGS: Clear to auscultation bilaterally. CARDIOVASCULAR: S1, S2 heard. No rubs or gallops. ABDOMEN: Tenderness to palpation in the epigastric area, nondistended. Normal bowel sounds. No rebound or guarding. MUSCULOSKELETAL: No lower extremity edema bilaterally. NEUROLOGIC: No focal deficits. Results Result Diagram: 10/29/16 0433 10/29/16 0433 Results 24 hrs Laboratory Tests Test 10/28/16 14:40 10/29/16 04:33 Activated Partial Thromboplast Time 29.2 Ethyl Alcohol Level < 10.0 INR International Normalized Ratio 0.93 Prothrombin Time 12.5 Prothrombin Time Ratio 1.0 Anion Gap 18 H Basophils # 0.1 Basophils % 0.8 Blood Urea Nitrogen 9 Calcium Level 9.3 Carbon Dioxide Level 21 Chloride Level 107 Cholesterol Level 164 Cholesterol/HDL Ratio 5.6 Creatinine 1.15 Eosinophils # 0.8 H Eosinophils % 5.8 Glucose Level 94 HDL Cholesterol 29 Hematocrit 41.9 L Hemoglobin 14.0 Hemoglobin A1c 5.6 LDL Cholesterol, Calculated 100 Lipase 1986 H Lymphocytes # 4.3 H Lymphocytes % 29.4 Magnesium Level 1.8 Mean Corpuscular Hemoglobin 28.1 L Mean Corpuscular Hemoglobin Concent 33.4 Mean Corpuscular Volume 84.0 Mean Platelet Volume 10.1 Monocytes # 1.5 H Monocytes % 10.5 Neutrophils # 7.7 H Neutrophils % 53.2 Nucleated Red Blood Cells # 0.0 Nucleated Red Blood Cells % 0.0 Phosphorus Level 4.6 Platelet Count 595 H Potassium Level 4.3 Red Blood Count 4.99 Red Cell Distribution Width 18.2 H Sodium Level 142 Thyroid Stimulating Hormone (TSH) 3.920 Triglycerides Level 175 H White Blood Count 14.5 H Medications Medications Current Medications Acetaminophen (Tylenol Tab) 650 mg Q6H PRN PO PAIN LEVEL 1-3 OR FEVER; Start at 14:00 Acetaminophen/ Hydrocodone Bitart (Fortson (5/325)) 1 tab Q6H PRN PO MODERATE PAIN LEVEL 4-6; Start 10/28/16 at 14:00 Morphine Sulfate (morphine) 2 mg Q4H PRN IV SEVERE PAIN LEVEL 7-10 Last administered on 10/29/16 01:38; Admin Dose 2 MG; Start 10/28/16 at 14:00 Docusate Sodium (Colace) 100 mg Q12H PRN PO CONSTIPATION; Start 10/28/16 at 14: 00 Magnesium Hydroxide (Milk Of Mag) 30 ml DAILY PRN PO CONSTIPATION; Start at 14:00 Sodium Biphosphate/ Sodium Phosphate (Fleet Enema) 133 ml DAILY PRN NM CONSTIPATION; Start 10/28/16 at 14:00 Pantoprazole (Protonix Iv) 40 mg DAILY@06 IV Last administered on 10/29/16 05: 54; Admin Dose 40 MG; Start 10/29/16 at 06:00 Hydralazine HCl (Apresoline) 10 mg Q4H PRN IV ELEVATED BLOOD PRESSURE Last administered on 10/29/16 06:04; Admin Dose 10 MG; Start 10/28/16 at 14:00 Nitroglycerin (Nitroglycerin (Sl Tab) 0.4 Mg) 1 tab Q5M PRN SL ANGINA; Start at 14:00 Clonidine HCl (Catapres-Tts 2 Patch) 1 patch Q7D TRANSDERM Last administered on 10/28/16 16:42; Admin Dose 1 PATCH; Start 10/28/16 at 15:30 Nicotine (Nicoderm 21 Mg/ 24hr) 1 patch QPM TRANSDERM ; Start 10/28/16 at 21:00 Olopatadine HCl 1 drop 1 drop BID BOTH EYES ; Start 10/29/16 at 09:00 Dextrose/Sodium Chloride (D5-NS) 1,000 ml @ 100 mls/hr Q10H IV Last administered on 10/29/16 10:54; Admin Dose 100 MLS/HR; Start 10/28/16 at 14:30 Trimethobenzamide HCl (Tigan) 200 mg Q6H PRN IM NAUSEA AND/OR VOMITING Last administered on 10/29/16 09:25; Admin Dose 200 MG; Start 10/28/16 at 14:30 Enalaprilat 0.625 mg 0.625 mg Q4H PRN IV ELEVATED BLOOD PRESSURE Last administered on 10/28/16 15:11; Admin Dose 0.625 MG; Start 10/28/16 at 14:30 Ondansetron HCl/ Sodium Chloride (Zofran Inj/NS) 54 ml @ 216 mls/hr Q6H PRN IV NAUSEA AND/OR VOMITING Last administered on 10/29/16 06:40; Admin Dose 216 MLS/HR; Start 10/28/16 at 14:32 Lorazepam (Ativan) 1 mg Q6H PRN IV ANXIETY Last administered on 10/29/16 10:55 ; Admin Dose 1 MG; Start 10/28/16 at 15:30 Hydromorphone HCl (Dilaudid) 1 mg Q3H PRN IV PAIN Last administered on 09:25; Admin Dose 1 MG; Start 10/28/16 at 18:13 Metoclopramide HCl (Reglan) 5 mg QID IV Last administered on 10/29/16t 10:55; Admin Dose 5 MG; Start 10/29/16 at 10:00 NITHYA KAISER Oct 29, 2016 12:39
[2016-10-29] MEDS ORDERED: ONDANSETRON 4 MG INJ IV PRN (13:00)
[2016-10-29] MEDS ORDERED: ONDANSETRON INJ 8 MG in SOD CHLORIDE 0.9% 50 ML IV PRN (13:00)
[2016-10-29] MEDS: ONDANSETRON 4 MG INJ IV SCH ×2 (14:47→19:35)
[2016-10-29] MEDS: HYDROmorphONE 0.2 MG/ML PCA IV SCH ×2 (14:52→18:53)
[2016-10-29] MEDS ORDERED: ONDANSETRON 4 MG INJ IV SCH (16:00)
[2016-10-29 16:47] VITALS: BP 194/119; PULSE 69
[2016-10-29] MEDS: PANTOPRAZOLE 40 MG INJ IV SCH (17:16)
--- NOTE | 2016-10-29 17:21 | CONS ---
Date/Time of Note Date/Time of Note DATE: 10/29/16 TIME: 17:16 Assessment/Plan Assessment/Plan Additional Assessment/Plan [facility] SUBSEQUENT CONSULT[facility] NOTE PLACE OF SERVICE[facility], 4th floor. DATE OF CONSULTATION: 10/29/2016 IMPRESSION AND PLAN: Overall stable, but readmitted with pancreatitis, elevated WBC and symptoms (pain in particular). No new etiologies or diagnoses. Needs pancreatic duct interrogation. With the above assessment, I have recommend the followin. GI consultation re further workup for autoimmune pancreatitis, consideration for upper and lower endoscopy and evaluate need for pancreatic duct stenting/ interrogation 2. Continue current medical management with symptom control as well n.p.o. status. 3. Monitor labs including pancreas enzymes. 4. Multidisciplinary discussion. 5. Will follow from periphery with intermittent visits prn Thank you again for allowing me to participate in the care of this very pleasant gentleman and his wonderful family. If there are any questions, please feel free to call me at [phone]. TOTAL VISIT TIME: 45 minutes of which more than half were spent in face-to- face discussion with the patient as well as coordination of care between multiple physicians and providers. 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 Multiple admissions and visits to ED's in nearby hospitals. Upper endoscopy 2014 showed no evidence of a cyst gastrostomy remaining and no other major abnormality. + history of drug abuse as well as history of heavy alcohol abuse in the past, although he reports having no issues with alcohol since his operation as well as only using marijuana and not using any heavy drugs. + hypertension. Admitted multiple times over the last 2 years with similar issues. Comorbidities: 1. History of hypertension. 2. History of significant alcohol abuse in the past. 3. History of significant drug abuse in the past. 4. 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 5. Status post laparoscopic hand-assisted distal splenectomy as well as cystogastrostomy December 2013. REASON FOR CONSULTATION: Pancreatitis REFERRING PHYSICIAN: Etelvina Tafoya MD Dear Dr. Tafoya, Thank you very much for asking me to remain involved as a surgical services manager in management of Mr. Rai Luna. 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 I was kindly asked to consult to render a surgical opinion about his care after his admission for pancreatitis on 10/28/16. During my visit, the patient was reported same abdominal pain that had somewhat improved since admission. At its worst, though, he described 10/10 crushing abdominal pain in the mid and upper quadrant without radiation to his back. No sig reported nausea or vomiting. He did not report any fevers or chills, difficulty with breathing or swallowing, issues with blood in his stool or urine , difficulty with his bowel or bladder habits other than the above-mentioned or new skin rashes, joint pain, musculoskeletal disease, neurologic, psychiatric, or psychologic problems. ALLERGIES: NO KNOWN DRUG ALLERGIES. MEDICATIONS (see EHR for more details): In the past, patient has been on: 1. Norvasc. 2. Creon. 3. Lisinopril. 4. Maalox. 5. Toprol. 6. Naprosyn. 7. Zofran. 8. Protonix. SOCIAL HISTORY: The patient lives with his family and has a daughter. He does not report current drinking or intravenous drug use. He does report ongoing use of marijuana. He does report smoking history. The patient reports smoking 10 to 15 cigarettes per day. FAMILY HISTORY: There is no significant reported family history of major medical, surgical or oncologic problems. There is also no history of hereditary pancreatitis or other major pancreatic issues in the family. REVIEW OF SYSTEMS: Other than the above-mentioned, there are no other pertinent positives or pertinent negatives in a complete 14-point review of systems. PHYSICAL EXAMINATION: GENERAL: The patient appears to be a very pleasant gentleman of non- descent, appearing stated age, well developed and well nourished, lying in bed comfortably and in no acute distress. His BMI is 27.4 (previously Sep, 24 Aug 2015, 15 Jan 2014). VITAL SIGNS: Reviewed (please see EHR) HEENT: His head is normocephalic and atraumatic. Extraocular muscles and hearing are grossly intact bilaterally and symmetrically. His sclerae are nonicteric. His oral cavity is clear. His oral mucosa appeared to be pink and moist. He has very poor dentition with some missing teeth. NECK: Supple. There is no lymphadenopathy or JVD. There is no submental, submandibular or supraclavicular lymphadenopathy. CHEST: Rises symmetrically with each breath, and he is breathing comfortably. There are no audible wheezes, rales, or rhonchi on the gross exam. HEART: His pulse is regular palpable on the right wrist. Capillary refill is normal. Carotid pulses are palpable bilaterally and symmetrically in his neck. Lower extremities contain no pitting edema around the ankles bilaterally and symmetrically. ABDOMEN: Demonstrates a well-healed, subcostal, left-sided incision from his operation. There is no evidence of erythema, edema, discharge or hernia around this incision site. Patient has mild tenderness to palpation in the upper midepigastrium. Abdomen is otherwise soft and nondistended. There is no evidence of organomegaly, ascites, caput medusae, or engorged subcutaneous veins. There are no peritoneal signs or guarding. SKIN: Appears to be pink and feels warm to touch. NEUROLOGIC: He is awake, alert, and follows commands appropriately. LABORATORY DATA: See below IMAGING: See EHR. I've personally reviewed relevant images and I agree with their overall reported findings. Consultation Date/Type/Reason Admit Date/Time Oct 29, 2016 at 09:39 Initial Consult Date Exam/Review of Systems Vital Signs Vitals Vital Signs Date Time Temp Pulse Resp B/P Pulse Ox O2 Delivery O2 Flow Rate FiO2 10/29/16 16:47 69 194/119 10/29/16 15:26 17 10/29/16 08:00 98.0 98 10/28/16 21:00 Room Air Intake and Output 10/28/16 10/28/16 10/29/16 15:00 23:00 07:00 Intake Total 200 ml 1200 ml Output Total 650 ml 1100 ml Balance -450 ml 100 ml Results Result Diagram: 10/29/16 0433 10/29/16 0433 Results 24 hrs Laboratory Tests Test 10/29/16 04:33 Anion Gap 18 H Basophils # 0.1 Basophils % 0.8 Blood Urea Nitrogen 9 Calcium Level 9.3 Carbon Dioxide Level 21 Chloride Level 107 Cholesterol Level 164 Cholesterol/HDL Ratio 5.6 Creatinine 1.15 Eosinophils # 0.8 H Eosinophils % 5.8 Glucose Level 94 HDL Cholesterol 29 Hematocrit 41.9 L Hemoglobin 14.0 Hemoglobin A1c 5.6 LDL Cholesterol, Calculated 100 Lipase 1986 H Lymphocytes # 4.3 H Lymphocytes % 29.4 Magnesium Level 1.8 Mean Corpuscular Hemoglobin 28.1 L Mean Corpuscular Hemoglobin Concent 33.4 Mean Corpuscular Volume 84.0 Mean Platelet Volume 10.1 Monocytes # 1.5 H Monocytes % 10.5 Neutrophils # 7.7 H Neutrophils % 53.2 Nucleated Red Blood Cells # 0.0 Nucleated Red Blood Cells % 0.0 Phosphorus Level 4.6 Platelet Count 595 H Potassium Level 4.3 Red Blood Count 4.99 Red Cell Distribution Width 18.2 H Sodium Level 142 Thyroid Stimulating Hormone (TSH) 3.920 Triglycerides Level 175 H White Blood Count 14.5 H Medications Medications Current Medications Hydralazine HCl (Apresoline) 10 mg Q4H PRN IV ELEVATED BLOOD PRESSURE Last administered on 10/29/16 13:07; Admin Dose 10 MG; Start 10/28/16 at 14:00 Nitroglycerin (Nitroglycerin (Sl Tab) 0.4 Mg) 1 tab Q5M PRN SL ANGINA; Start at 14:00 Clonidine HCl (Catapres-Tts 2 Patch) 1 patch Q7D TRANSDERM Last administered on 10/28/16 16:42; Admin Dose 1 PATCH; Start 10/28/16 at 15:30 Nicotine (Nicoderm 21 Mg/ 24hr) 1 patch QPM TRANSDERM ; Start 10/28/16 at 21:00 Olopatadine HCl 1 drop 1 drop BID BOTH EYES ; Start 10/29/16 at 09:00 Dextrose/Sodium Chloride (D5-NS) 1,000 ml @ 100 mls/hr Q10H IV Last administered on 10/29/16 10:54; Admin Dose 100 MLS/HR; Start 10/28/16 at 14:30 Enalaprilat (Vasotec Iv) 0.625 mg Q4H PRN IV ELEVATED BLOOD PRESSURE Last administered on 10/28/16 15:11; Admin Dose 0.625 MG; Start 10/28/16 at 14:30 Lorazepam (Ativan) 1 mg Q6H PRN IV ANXIETY Last administered on 10/29/16 10:55 ; Admin Dose 1 MG; Start 10/28/16 at 15:30 Ondansetron HCl (Zofran Inj) 4 mg Q6H IV Last administered on 10/29/16 14:47; Admin Dose 4 MG; Start 10/29/16 at 14:00 Hydromorphone HCl (Dilaudid COMMUNITY SERVICES OFFICER) 0 MG/HR CONTINUOUS R... Q4PCA IV Last administered on 10/29/16 14:52; Admin Dose 6 MG; Start 10/29/16 at 14:00 Pantoprazole (Protonix Iv) 40 mg BID@06,18 IV ; Start 10/29/16 at 18:00 DENZEL HENDRICKSON M.D. Oct 29, 2016 17:20
[2016-10-29] MEDS: ENALAPRILAT 1.25 MG INJ IV PRN (19:34)
[2016-10-29] MEDS: OLOPATADINE 0.1% 5 ML OPH BOTH EYES PRN (20:50)
[2016-10-29] MEDS: NICOTINE (21 MG/24 HR) PATCH TRANSDERM SCH (20:51)
[2016-10-30] MEDS ORDERED: RANITIDINE 150 MG TAB PO SCH
[2016-10-30] MEDS: HYDROmorphONE 0.2 MG/ML PCA IV SCH ×4 (02:22→20:21)
[2016-10-30] MEDS: ONDANSETRON 4 MG INJ IV SCH ×4 (02:24→20:19)
[2016-10-30 05:20] LABS: ADD SCAN DIFF NO
[2016-10-30] MEDS: PANTOPRAZOLE 40 MG INJ IV SCH ×2 (05:49→17:04)
[2016-10-30 05:57] LABS: ABNORMAL IP MESSAGE 1; BASOPHIL # 0.1 10^3/ul (0.0-0.1); BASOPHILS % 0.7 % (0.0-2.0); EOSINOPHILS # 0.7 10^3/ul (0.0-0.5); EOSINOPHILS % 4.3 % (0.0-7.0); HEMATOCRIT 43.3 % (42.0-52.0); HEMOGLOBIN 14.3 g/dl (14.0-18.0); LYMPHOCYTES # 3.1 10^3/ul (0.8-2.9); LYMPHOCYTES % 19.8 % (15.0-51.0); MEAN CORPUSCULAR HEMOGLOBIN 27.9 pg (29.0-33.0); MEAN CORPUSCULAR VOLUME 84.6 fl (82.0-101.0); MEAN PLATELET VOLUME 10.2 fl (7.4-10.4); MONOCYTE # 1.6 10^3/ul (0.3-0.9); MONOCYTES % 9.9 % (0.0-11.0); NEUTROPHIL # 10.2 10^3/ul (1.6-7.5); PLATELET COUNT 558 10^3/UL (140-415); RED BLOOD COUNT 5.12 10^6/ul (4.70-6.10); RED CELL DISTRIBUTION WIDTH 18.8 % (11.5-14.5); WHITE BLOOD COUNT 15.7 10^3/ul (4.8-10.8)
[2016-10-30] MEDS: hydrALAzine 20 MG INJ IV PRN ×3 (06:00→17:05)
[2016-10-30] MEDS ORDERED: PANTOPRAZOLE 40 MG INJ IV SCH (06:00)
[2016-10-30] MEDS: DEXTROSE 5%-0.9% NACL 1,000 ML IV SCH ×4 (06:02→23:08)
[2016-10-30 06:19] VITALS: BP 185/113; PULSE 78; RESP 18
[2016-10-30 07:49] VITALS: BP 200/114; RESP 18
[2016-10-30 07:49] LABS: POTASSIUM 3.4 mmol/L (3.5-5.1)
[2016-10-30 07:51] LABS: CREATININE 1.04 mg/dl (0.61-1.24)
[2016-10-30 07:52] LABS: CALCIUM 9.3 mg/dl (8.4-10.2)
[2016-10-30] MEDS: ENALAPRILAT 1.25 MG INJ IV PRN ×3 (08:12→22:41)
[2016-10-30 10:23] VITALS: BP 178/104; PULSE 82
[2016-10-30] MEDS: OLOPATADINE 0.1% 5 ML OPH BOTH EYES PRN ×2 (11:28→21:22)
--- NOTE | 2016-10-30 11:40 | PN ---
Date/Time of Note Date/Time of Note DATE: 10/30/16 TIME: 11:39 Assessment/Plan VTE Prophylaxis VTE Prophylaxis Intervention: SCD's Lines/Catheters IV [facility] Peripheral IV Urinary Cath still in place: No Assessment/Plan Chief Complaint/Hosp Course ASSESSMENT AND PLAN: A 36-year-old male coming in with acute on chronic pancreatitis and renal insufficiency. 1. Abdominal pain secondary to acute on chronic pancreatitis - lipase trending down, still elevated (9000 -> 1800 -> 689) - keep NPO, IVF, f/u surgery consult with Dr. Cruz, arnaud also get GI consult. - antiemetic medicines. Pain control medicines as well, f/u pain mngt consult rec's 2. History of alcohol abuse. No signs of any DTs or withdrawal - monitor, IV fluids. 3. Prior smoking history -nicotine patch at home, although he denies any cigarette use presently, though it is unclear. 4. History of chronic pain syndrome -l cautiously put him on Dilaudid, pain management doctor consult. 5. Gastrointestinal prophylaxis. PPI. 6. Deep venous thrombosis prophylaxis. Sequential compression devices. Problems: Subjective 24 Hr Interval Summary Free Text/Dictation Per pain mngt rec's, on PRODUCT/INDUSTRY CONSULTANT pump for pain control now, seen by surgery team yesterday. Exam/Review of Systems Vital Signs Vitals Vital Signs Date Time Temp Pulse Resp B/P Pulse Ox O2 Delivery O2 Flow Rate FiO2 10/30/16 10:23 82 178/104 10/30/16 09:06 16 10/30/16 07:49 98.5 95 10/30/16 06:19 Room Air Intake and Output 10/29/16 10/29/16 10/30/16 15:00 23:00 07:00 Intake Total 1200 ml 1200 ml Balance 1200 ml 1200 ml Exam GENERAL: The patient is lying in bed in moderate distress, but alert. HEENT: Pupils are equal, round, and react to light. Extraocular muscles intact. NECK: Supple. No thyromegaly. LUNGS: Clear to auscultation bilaterally. CARDIOVASCULAR: S1, S2 heard. No rubs or gallops. ABDOMEN: Tenderness to palpation in the epigastric area, nondistended. Normal bowel sounds. No rebound or guarding. MUSCULOSKELETAL: No lower extremity edema bilaterally. NEUROLOGIC: No focal deficits. Results Result Diagram: 10/30/16 0419 10/30/16 0419 Results 24 hrs Laboratory Tests Test 10/30/16 04:19 Anion Gap 15 Basophils # 0.1 Basophils % 0.7 Blood Urea Nitrogen 6 L Calcium Level 9.3 Carbon Dioxide Level 24 Chloride Level 105 Creatinine 1.04 Eosinophils # 0.7 H Eosinophils % 4.3 Glucose Level 106 Hematocrit 43.3 Hemoglobin 14.3 Lipase 658 H Lymphocytes # 3.1 H Lymphocytes % 19.8 Mean Corpuscular Hemoglobin 27.9 L Mean Corpuscular Hemoglobin Concent 33.0 Mean Corpuscular Volume 84.6 Mean Platelet Volume 10.2 Monocytes # 1.6 H Monocytes % 9.9 Neutrophils # 10.2 H Neutrophils % 65.0 Nucleated Red Blood Cells # 0.0 Nucleated Red Blood Cells % 0.0 Platelet Count 558 H Potassium Level 3.4 L Red Blood Count 5.12 Red Cell Distribution Width 18.8 H Sodium Level 141 White Blood Count 15.7 H Medications Medications Current Medications Hydralazine HCl (Apresoline) 10 mg Q4H PRN IV ELEVATED BLOOD PRESSURE Last administered on 10/30/16 10:25; Admin Dose 10 MG; Start 10/28/16 at 14:00 Nitroglycerin (Nitroglycerin (Sl Tab) 0.4 Mg) 1 tab Q5M PRN SL ANGINA; Start at 14:00 Clonidine HCl (Catapres-Tts 2 Patch) 1 patch Q7D TRANSDERM Last administered on 10/28/16 16:42; Admin Dose 1 PATCH; Start 10/28/16 at 15:30 Nicotine 1 patch 1 patch QPM TRANSDERM Last administered on 10/29/16 20:51; Admin Dose 1 PATCH; Start 10/28/16 at 21:00 Dextrose/Sodium Chloride (D5-NS) 1,000 ml @ 100 mls/hr Q10H IV Last administered on 10/30/16 06:02; Admin Dose 100 MLS/HR; Start 10/28/16 at 14:30 Enalaprilat (Vasotec Iv) 0.625 mg Q4H PRN IV ELEVATED BLOOD PRESSURE Last administered on 10/30/16 08:12; Admin Dose 0.625 MG; Start 10/28/16 at 14:30 Lorazepam (Ativan) 1 mg Q6H PRN IV ANXIETY Last administered on 10/29/16 23:38 ; Admin Dose 1 MG; Start 10/28/16 at 15:30 Ondansetron HCl (Zofran Inj) 4 mg Q6H IV Last administered on 10/30/16 08:12; Admin Dose 4 MG; Start 10/29/16 at 14:00 Hydromorphone HCl (Dilaudid PRODUCT/INDUSTRY CONSULTANT) 0 MG/HR CONTINUOUS R... Q4PCA IV Last administered on 10/30/16 09:05; Admin Dose 6 MG; Start 10/29/16 at 14:00 Pantoprazole (Protonix Iv) 40 mg BID@,18 IV Last administered on 10/30/16 05: 49; Admin Dose 40 MG; Start 10/29/16 at 18:00 Olopatadine HCl (Patanol 0.1% Oph) 1 drop BID PRN BOTH EYES eye alllergies Last administered on 10/30/16 11:28; Admin Dose 1 DROP; Start 10/29/16 at 19:30 Ranitidine HCl (Zantac) 150 mg HS PO Last administered on 10/30/16 00:21; Admin Dose 150 MG; Start 10/30/16 at 00:00 NITHYA KAISER Oct 30, 2016 11:40
[2016-10-30] MEDS ORDERED: POTASSIUM CHLORIDE 250 ML IVPB ONE (13:00)
[2016-10-30] MEDS: LORAZEPAM 2 MG INJ IV PRN ×2 (13:39→20:19)
[2016-10-30 13:43] VITALS: BP 195/116; PULSE 62
--- NOTE | 2016-10-30 16:23 | CONS ---
Date/Time of Note Date/Time of Note DATE: 10/30/16 TIME: 16:05 Assessment/Plan Assessment/Plan Chief Complaint/Hosp Course Impression: 1. Abdominal pain secondary to acute on chronic pancreatitis - lipase trending down, still elevated (9000 -> 1800 -> 689). 2. History of alcohol abuse. No signs of any DTs or withdrawal 3. Prior smoking history: unclear whether he actively smokes or not. Recommendations: 1. repeat MRCP to assess for the 2x2 cm inflammatory lesion near head of the pancreas. I wonder if it is maturing into a pancreatic cyst that compresses on the pancreas to cause chronic pancreatitis. Purpose of MRCP to assess whether there is pancreatic duct dilation due to mass effect, and to r/o pancreatic neoplasm as stated on last month's MRCP. 2. sent lab to check IgG4 level to r/o autoimmune pancreatitis 3. continue NPO with IVF 4. Dr. Gaston will need to review MRCP and subsequent GI management depends on MRCP result. 5. continue surgical eval in case the MRCP findings is not amenable to endoscopic therapy Problems: Consultation Date/Type/Reason Admit Date/Time Oct 29, 2016 at 09:39 Date of Consultation: Oct 30, 2016 Type of Consultation: GI Hx of Present Illness 36-year-old male who was recently hospitalized at [facility] from 10/14/2016 to 2016. Work up at that time with MRCP showed "no evidence of cholelithiasis or cholecystitis. The common bile duct and intrahepatic ducts are normal in caliber and there is no choledocholithiasis. Changes of pancreatitis with inflammatory phlegmon in the left anterior pararenal space and likely pseudocysts in the pancreatic body having estimation of 2.3 x 2 cm without pancreatic ductal dilatation. As underlying pancreatic neoplasm or pancreatic necrosis is difficult to entirely exclude on this unenhanced exam, follow-up is recommended." He improved and discharged. He has been having abdominal pain going on for 2 days [employer]. Patient called Dr. 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 Patient reported severe abdominal pain. He then came to [facility] and admitted for management of his intractable epigastric pain. Work up in ER showed lipase of 8900. He has nausea and vomiting symptoms, minimal coffee-ground emesis, but now more non-bilious, non-bloody. Some positive chills. No significant fevers. No dizziness or loss of consciousness. No diarrhea, no constipation. No chest pain, no shortness of breath. He is presently in the process of trying to get authorized to go to [facility] for workup of his chronic pancreatitis. All point ROS is administered, pertinent positives and negatives in HPI otherwise negative. Past Medical History pancreatitis, Medical History: hypertension Past Surgical History Past Surgical Hx: endoscopy, other (splenectomy, cystogastrostomy) Family History Significant Family History: no pertinent family hx Social History Alcohol Use: sober (previously heavy alcohol use) Smoking Status: Current every day smoker Drug Use: other (h/o poly-drug abuse) Exam/Review of Systems Vital Signs Vitals Vital Signs Date Time Temp Pulse Resp B/P Pulse Ox O2 Delivery O2 Flow Rate FiO2 10/30/16 15:03 16 10/30/16 13:43 62 195/116 10/30/16 07:49 98.5 95 10/30/16 06:19 Room Air Intake and Output 10/29/16 10/29/16 10/30/16 15:00 23:00 07:00 Intake Total 1200 ml 1200 ml Balance 1200 ml 1200 ml Exam Constitutional: alert, oriented, well developed Psych: anxiety Head: atraumatic, normocephalic Eyes: EOMI, nl conjunctiva, nl lids, nl sclera ENMT: mucosa pink and moist, nl external ears & nose, nl lips & teeth Neck: non-tender, supple Respiratory: clear to auscultation, normal air movement Cardiovascular: nl pulses, regular rate and rhythm Gastrointestinal: bowel sounds, soft, tender (diffusely but worst in epigastric region, with guarding and equivocal rebound) Musculoskeletal: nl extremities to inspection, nl gait and stance Neurological: nl mental status, nl speech, nl strength Results Result Diagram: 10/30/16 0419 10/30/16 0419 Results 24 hrs Laboratory Tests Test 10/30/16 04:19 Anion Gap 15 Basophils # 0.1 Basophils % 0.7 Blood Urea Nitrogen 6 L Calcium Level 9.3 Carbon Dioxide Level 24 Chloride Level 105 Creatinine 1.04 Eosinophils # 0.7 H Eosinophils % 4.3 Glucose Level 106 Hematocrit 43.3 Hemoglobin 14.3 Lipase 658 H Lymphocytes # 3.1 H Lymphocytes % 19.8 Mean Corpuscular Hemoglobin 27.9 L Mean Corpuscular Hemoglobin Concent 33.0 Mean Corpuscular Volume 84.6 Mean Platelet Volume 10.2 Monocytes # 1.6 H Monocytes % 9.9 Neutrophils # 10.2 H Neutrophils % 65.0 Nucleated Red Blood Cells # 0.0 Nucleated Red Blood Cells % 0.0 Platelet Count 558 H Potassium Level 3.4 L Red Blood Count 5.12 Red Cell Distribution Width 18.8 H Sodium Level 141 White Blood Count 15.7 H Medications Medications Current Medications Hydralazine HCl (Apresoline) 10 mg Q4H PRN IV ELEVATED BLOOD PRESSURE Last administered on 10/30/16 10:25; Admin Dose 10 MG; Start 10/28/16 at 14:00 Nitroglycerin (Nitroglycerin (Sl Tab) 0.4 Mg) 1 tab Q5M PRN SL ANGINA; Start at 14:00 Clonidine HCl (Catapres-Tts 2 Patch) 1 patch Q7D TRANSDERM Last administered on 10/28/16 16:42; Admin Dose 1 PATCH; Start 10/28/16 at 15:30 Nicotine 1 patch 1 patch QPM TRANSDERM Last administered on 10/29/16 20:51; Admin Dose 1 PATCH; Start 10/28/16 at 21:00 Dextrose/Sodium Chloride (D5-NS) 1,000 ml @ 100 mls/hr Q10H IV Last administered on 10/30/16 06:02; Admin Dose 100 MLS/HR; Start 10/28/16 at 14:30 Enalaprilat (Vasotec Iv) 0.625 mg Q4H PRN IV ELEVATED BLOOD PRESSURE Last administered on 10/30/16 13:42; Admin Dose 0.625 MG; Start 10/28/16 at 14:30 Lorazepam (Ativan) 1 mg Q6H PRN IV ANXIETY Last administered on 10/30/16 13:39 ; Admin Dose 1 MG; Start 10/28/16 at 15:30 Ondansetron HCl (Zofran Inj) 4 mg Q6H IV Last administered on 10/30/16 13:28; Admin Dose 4 MG; Start 10/29/16 at 14:00 Hydromorphone HCl (Dilaudid APARTMENT COORDINATOR) 0 MG/HR CONTINUOUS R... Q4PCA IV Last administered on 10/30/16 15:03; Admin Dose 6 MG; Start 10/29/16 at 14:00 Pantoprazole (Protonix Iv) 40 mg BID@06,18 IV Last administered on 10/30/16 05: 49; Admin Dose 40 MG; Start 10/29/16 at 18:00 Olopatadine HCl (Patanol 0.1% Oph) 1 drop BID PRN BOTH EYES eye alllergies Last administered on 10/30/16 11:28; Admin Dose 1 DROP; Start 10/29/16 at 19:30 Ranitidine HCl 150 mg 150 mg HS PO Last administered on 10/30/16 00:21; Admin Dose 150 MG; Start 10/30/16 at 00:00 Potassium Chloride (KCl 40 MEQ/250 ML NS) 250 ml @ 62.5 mls/hr ONCE ONCE IVPB Last administered on 10/30/16 13:28; Admin Dose 62.5 MLS/HR; Start 10/30/16 at 13:00; Stop 10/30/16 at 16:59 TRISTEN TORRES MD Oct 30, 2016 16:15
[2016-10-30 17:00] VITALS: BP 205/116; PULSE 65
[2016-10-30 19:00] VITALS: BP 192/115; RESP 18
[2016-10-30] MEDS: NICOTINE (21 MG/24 HR) PATCH TRANSDERM SCH (21:22)
[2016-10-31 00:30] VITALS: BP 198/123; PULSE 70; RESP 18
[2016-10-31] MEDS: ONDANSETRON 4 MG INJ IV SCH ×4 (03:03→20:36)
[2016-10-31] MEDS: hydrALAzine 20 MG INJ IV PRN ×4 (03:12→20:37)
[2016-10-31] MEDS: HYDROmorphONE 0.2 MG/ML PCA IV SCH ×3 (03:20→18:01)
[2016-10-31] MEDS: OLOPATADINE 0.1% 5 ML OPH BOTH EYES PRN (05:32)
[2016-10-31] MEDS: PANTOPRAZOLE 40 MG INJ IV SCH ×2 (05:32→17:32)
[2016-10-31] MEDS: DEXTROSE 5%-0.9% NACL 1,000 ML IV SCH ×3 (05:33→19:08)
[2016-10-31] MEDS: ENALAPRILAT 1.25 MG INJ IV PRN ×2 (05:34→17:34)
[2016-10-31 07:56] VITALS: BP 182/112; RESP 16
[2016-10-31 08:12] LABS: ADD SCAN DIFF NO
[2016-10-31 08:24] LABS: ABNORMAL IP MESSAGE 1; BASOPHIL # 0.1 10^3/ul (0.0-0.1); BASOPHILS % 0.9 % (0.0-2.0); EOSINOPHILS # 1.4 10^3/ul (0.0-0.5); EOSINOPHILS % 10.3 % (0.0-7.0); HEMATOCRIT 43.5 % (42.0-52.0); HEMOGLOBIN 14.1 g/dl (14.0-18.0); LYMPHOCYTES % 21.8 % (15.0-51.0); MEAN CORPUSCULAR HEMOGLOBIN 27.7 pg (29.0-33.0); MEAN CORPUSCULAR HGB CONC 32.4 g/dl (32.0-37.0); MEAN CORPUSCULAR VOLUME 85.5 fl (82.0-101.0); MEAN PLATELET VOLUME 10.6 fl (7.4-10.4); MONOCYTE # 1.8 10^3/ul (0.3-0.9); MONOCYTES % 12.8 % (0.0-11.0); NEUTROPHIL # 7.4 10^3/ul (1.6-7.5); PLATELET COUNT 539 10^3/UL (140-415); RED BLOOD COUNT 5.09 10^6/ul (4.70-6.10); RED CELL DISTRIBUTION WIDTH 18.9 % (11.5-14.5); WHITE BLOOD COUNT 13.7 10^3/ul (4.8-10.8)
[2016-10-31 08:52] LABS: POTASSIUM 3.8 mmol/L (3.5-5.1)
[2016-10-31 08:55] LABS: CALCIUM 9.2 mg/dl (8.4-10.2)
[2016-10-31] MEDS: LORAZEPAM 2 MG INJ IV PRN ×3 (09:22→21:38)
--- NOTE | 2016-10-31 09:43 | PN ---
Date/Time of Note Date/Time of Note DATE: 10/31/16 TIME: 09:38 Assessment/Plan VTE Prophylaxis VTE Prophylaxis Intervention: SCD's Lines/Catheters IV Catheter Type (from Nrsg): Peripheral IV Urinary Cath still in place: No Assessment/Plan Assessment/Plan 1. Abdominal pain secondary to acute on chronic pancreatitis - lipase trending down, still elevated (9000 -> 1800 -> 689 ->~329) - keep NPO, IVF, f/u surgery consult with Dr. Cruz, arnaud also get GI consult. - antiemetic medicines. Pain control medicines as well, f/u pain mgmt consult rec's 2. Hypertensive Urgency: - I have added PRN Hydralazine 20mg IV q6 to his current regimen, including clonidine patch 3. History of alcohol abuse. No signs of any DTs or withdrawal - monitor, IV fluids. 4. Prior smoking history -nicotine patch at home, although he denies any cigarette use presently, though it is unclear. 5. History of chronic pain syndrome -l cautiously put him on Dilaudid, pain management doctor consult. Gastrointestinal prophylaxis. PPI. Deep venous thrombosis prophylaxis. Sequential compression devices. Subjective 24 Hr Interval Summary Free Text/Dictation c/o intermittent abd pain Exam/Review of Systems Vital Signs Vitals Vital Signs Date Time Temp Pulse Resp B/P Pulse Ox O2 Delivery O2 Flow Rate FiO2 10/31/16 07:56 98.8 62 16 182/112 96 10/31/16 00:30 Room Air Intake and Output 10/30/16 10/30/16 10/31/16 15:00 23:00 07:00 Intake Total 50 ml 1050 ml 2750 ml Output Total 550 ml 2350 ml Balance -500 ml 1050 ml 400 ml Exam Constitutional: alert, oriented, well developed Psych: nl mood/affect, no complaints Head: atraumatic, normocephalic Eyes: EOMI, PERRL Respiratory: clear to auscultation, normal air movement Cardiovascular: nl pulses, regular rate and rhythm Gastrointestinal: soft, tender Extremities: normal pulses Results Result Diagram: 10/31/16 0500 10/31/16 0430 Results 24 hrs Laboratory Tests Test 10/31/16 04:30 10/31/16 05:00 Anion Gap 18 H Blood Urea Nitrogen 7 Calcium Level 9.2 Carbon Dioxide Level 24 Chloride Level 103 Creatinine 1.00 Glucose Level 85 Lipase 329 H Potassium Level 3.8 Sodium Level 141 Basophils # 0.1 Basophils % 0.9 Eosinophils # 1.4 H Eosinophils % 10.3 H Hematocrit 43.5 Hemoglobin 14.1 Lymphocytes # 3.0 H Lymphocytes % 21.8 Mean Corpuscular Hemoglobin 27.7 L Mean Corpuscular Hemoglobin Concent 32.4 Mean Corpuscular Volume 85.5 Mean Platelet Volume 10.6 H Monocytes # 1.8 H Monocytes % 12.8 H Neutrophils # 7.4 Neutrophils % 54.0 Nucleated Red Blood Cells # 0.0 Nucleated Red Blood Cells % 0.0 Platelet Count 539 H Red Blood Count 5.09 Red Cell Distribution Width 18.9 H White Blood Count 13.7 H Medications Medications Current Medications Hydralazine HCl (Apresoline) 10 mg Q4H PRN IV ELEVATED BLOOD PRESSURE Last administered on 10/31/16 03:12; Admin Dose 10 MG; Start 10/28/16 at 14:00 Nitroglycerin (Nitroglycerin (Sl Tab) 0.4 Mg) 1 tab Q5M PRN SL ANGINA; Start at 14:00 Clonidine HCl (Catapres-Tts 2 Patch) 1 patch Q7D TRANSDERM Last administered on 10/28/16 16:42; Admin Dose 1 PATCH; Start 10/28/16 at 15:30 Nicotine 1 patch 1 patch QPM TRANSDERM Last administered on 10/30/16 21:22; Admin Dose 1 PATCH; Start 10/28/16 at 21:00 Dextrose/Sodium Chloride (D5-NS) 1,000 ml @ 150 mls/hr Q6H40M IV Last administered on 10/31/16 05:33; Admin Dose 150 MLS/HR; Start 10/28/16 at 14:30 Enalaprilat (Vasotec Iv) 0.625 mg Q4H PRN IV ELEVATED BLOOD PRESSURE Last administered on 10/31/16 05:34; Admin Dose 0.625 MG; Start 10/28/16 at 14:30 Lorazepam (Ativan) 1 mg Q6H PRN IV ANXIETY Last administered on 10/31/16 09:22 ; Admin Dose 1 MG; Start 10/28/16 at 15:30 Ondansetron HCl (Zofran Inj) 4 mg Q6H IV Last administered on 10/31/16 08:45; Admin Dose 4 MG; Start 10/29/16 at 14:00 Hydromorphone HCl (Dilaudid PIPE FITTER [employer]RE[employer] SERVICE) 0 MG/HR CONTINUOUS R... Q4PCA IV Last administered on 10/31/16 03:20; Admin Dose 6 MG; Start 10/29/16 at 14:00 Pantoprazole (Protonix Iv) 40 mg BID@,18 IV Last administered on 10/31/16 05: 32; Admin Dose 40 MG; Start 10/29/16 at 18:00 Olopatadine HCl (Patanol 0.1% Oph) 1 drop BID PRN BOTH EYES eye alllergies Last administered on 10/31/16 05:32; Admin Dose 1 DROP; Start 10/29/16 at 19:30 Hydralazine HCl (Apresoline) 20 mg Q4 PRN IV ELEVATED SYSTOLIC BP Last administered on 10/31/16 09:18; Admin Dose 20 MG; Start 10/31/16 at 03:30 KIMO KWON MD Oct 31, 2016 09:43
[2016-10-31 09:49] LABS: MAGNESIUM 1.8 mg/dl (1.7-2.5); PHOSPHORUS 3.4 mg/dl (2.5-4.9)
[2016-10-31 10:08] VITALS: BP 170/105; PULSE 72; RESP 16
--- NOTE | 2016-10-31 10:35 | CONS ---
Date/Time of Note Date/Time of Note DATE: 10/31/16 TIME: 10:32 Assessment/Plan Assessment/Plan Chief Complaint/Hosp Course Impression: 1. Abdominal pain secondary to acute on chronic pancreatitis - lipase trending down, still elevated (9000 -> 1800 -> 689->329). 2. History of alcohol abuse. No signs of any DTs or withdrawal 3. Prior smoking history: unclear whether he actively smokes or not. Recommendations: 1. Awaiting repeat MRCP to assess for the 2x2 cm inflammatory lesion near head of the pancreas. I wonder if it is maturing into a pancreatic cyst that compresses on the pancreas to cause chronic pancreatitis. Purpose of MRCP to assess whether there is pancreatic duct dilation due to mass effect, and to r/o pancreatic neoplasm as stated on last month's MRCP. 2. f/u lab to check IgG4 level to r/o autoimmune pancreatitis 3. continue NPO with IVF 4. Dr. Gaston will need to review MRCP and subsequent GI management depends on MRCP result. 5. continue surgical eval in case the MRCP findings is not amenable to endoscopic therapy Problems: Consultation Date/Type/Reason Admit Date/Time Oct 29, 2016 at 09:39 Initial Consult Date 10/30/16 Type of Consultation: GI 24 HR Interval Summary Free Text/Dictation COMPLAINS OF ABDOMINAL PAIN Constitutional: improved Exam/Review of Systems Vital Signs Vitals Vital Signs Date Time Temp Pulse Resp B/P Pulse Ox O2 Delivery O2 Flow Rate FiO2 10/31/16 10:08 72 16 170/105 99 10/31/16 07:56 98.8 10/31/16 00:30 Room Air Intake and Output 10/30/16 10/30/16 10/31/16 15:00 23:00 07:00 Intake Total 50 ml 1050 ml 2750 ml Output Total 550 ml 2350 ml Balance -500 ml 1050 ml 400 ml Exam Constitutional: alert, oriented, well developed Psych: anxiety Head: atraumatic, normocephalic Eyes: EOMI, nl conjunctiva, nl lids, nl sclera ENMT: mucosa pink and moist, nl external ears & nose, nl lips & teeth, nl nasal mucosa & septum Neck: non-tender, supple Respiratory: clear to auscultation, normal air movement Cardiovascular: nl pulses, regular rate and rhythm Gastrointestinal: bowel sounds, soft, tender (DIFFUSELY, WORST IN EPIGASTRIC REGION, NO R/G) Results Result Diagram: 10/31/16 0500 10/31/16 0430 Results 24 hrs Laboratory Tests Test 10/31/16 04:30 10/31/16 05:00 Anion Gap 18 H Blood Urea Nitrogen 7 Calcium Level 9.2 Carbon Dioxide Level 24 Chloride Level 103 Creatinine 1.00 Glucose Level 85 Lipase 329 H Magnesium Level 1.8 Phosphorus Level 3.4 Potassium Level 3.8 Sodium Level 141 Basophils # 0.1 Basophils % 0.9 Eosinophils # 1.4 H Eosinophils % 10.3 H Hematocrit 43.5 Hemoglobin 14.1 Lymphocytes # 3.0 H Lymphocytes % 21.8 Mean Corpuscular Hemoglobin 27.7 L Mean Corpuscular Hemoglobin Concent 32.4 Mean Corpuscular Volume 85.5 Mean Platelet Volume 10.6 H Monocytes # 1.8 H Monocytes % 12.8 H Neutrophils # 7.4 Neutrophils % 54.0 Nucleated Red Blood Cells # 0.0 Nucleated Red Blood Cells % 0.0 Platelet Count 539 H Red Blood Count 5.09 Red Cell Distribution Width 18.9 H White Blood Count 13.7 H Medications Medications Current Medications Hydralazine HCl (Apresoline) 10 mg Q4H PRN IV ELEVATED BLOOD PRESSURE Last administered on 10/31/16 03:12; Admin Dose 10 MG; Start 10/28/16 at 14:00 Nitroglycerin (Nitroglycerin (Sl Tab) 0.4 Mg) 1 tab Q5M PRN SL ANGINA; Start at 14:00 Clonidine HCl (Catapres-Tts 2 Patch) 1 patch Q7D TRANSDERM Last administered on 10/28/16 16:42; Admin Dose 1 PATCH; Start 10/28/16 at 15:30 Nicotine 1 patch 1 patch QPM TRANSDERM Last administered on 10/30/16 21:22; Admin Dose 1 PATCH; Start 10/28/16 at 21:00 Dextrose/Sodium Chloride (D5-NS) 1,000 ml @ 150 mls/hr Q6H40M IV Last administered on 10/31/16 05:33; Admin Dose 150 MLS/HR; Start 10/28/16 at 14:30 Enalaprilat (Vasotec Iv) 0.625 mg Q4H PRN IV ELEVATED BLOOD PRESSURE Last administered on 10/31/16 05:34; Admin Dose 0.625 MG; Start 10/28/16 at 14:30 Lorazepam (Ativan) 1 mg Q6H PRN IV ANXIETY Last administered on 10/31/16 09:22 ; Admin Dose 1 MG; Start 10/28/16 at 15:30 Ondansetron HCl (Zofran Inj) 4 mg Q6H IV Last administered on 10/31/16 08:45; Admin Dose 4 MG; Start 10/29/16 at 14:00 Hydromorphone HCl (Dilaudid MANAGER PART) 0 MG/HR CONTINUOUS R... Q4PCA IV Last administered on 10/31/16 09:59; Admin Dose 6 MG; Start 10/29/16 at 14:00 Pantoprazole (Protonix Iv) 40 mg BID@06,18 IV Last administered on 10/31/16 05: 32; Admin Dose 40 MG; Start 10/29/16 at 18:00 Olopatadine HCl (Patanol 0.1% Oph) 1 drop BID PRN BOTH EYES eye alllergies Last administered on 10/31/16 05:32; Admin Dose 1 DROP; Start 10/29/16 at 19:30 Hydralazine HCl (Apresoline) 20 mg Q4 PRN IV ELEVATED SYSTOLIC BP Last administered on 10/31/16 09:18; Admin Dose 20 MG; Start 10/31/16 at 03:30 TRISTEN TORRES MD Oct 31, 2016 10:35
--- NOTE | 2016-10-31 15:17 | RADRPT ---
PROCEDURE: MR Abdomen without contrast. CLINICAL INDICATION: Pancreatic lesion. TECHNIQUE: Routine MRI abdomen without contrast was performed. COMPARISON: MRI, 10/14/2016. FINDINGS: There is increased small perihepatic ascites. As before, there is diffuse peripancreatic fat infiltration in the background of chronic pancreatiti s, as reflected by the heterogeneously low T1 signal of the pancreas. There is a small cystic struc ture identified in the uncinate process of the pancreas, measuring up to 2 cm. There are also addit ional foci of subcentimeter peripancreatic fluid. The pancreatic duct is nondilated. Gallbladder is unremarkable. There is no biliary dilatation. Spleen is surgically absent; an acces mckay spleen is present, however. There is mild thickening of the left adrenal gland without a discr ete nodule. The right adrenal gland appears normal. No hydronephrosis. Visualized bowel loops are normal in caliber and mural thickness. IMPRESSION: Examination is limited without intravenous contrast. Peripancreatic fat infiltration and small foci of peripancreatic fluid, reflecting pancreatitis. Th ere is a small cystic structure identified in the uncinate process measuring up to 2 cm, suggestive of a small pseudocyst. No definite focal pancreatic mass is demonstrated, albeit this evaluation is limited without intravenous contrast. Small perihepatic ascites, increased in comparison to 10/14/2016 RPTAT: [facility] .Jose Guadalupe Junior MD, MD Date Time Electronically viewed and signed by .Jose Guadalupe Junior MD, MD on 10/31/2016 15:17 .C/
[2016-10-31] MEDS: ACETAMINOPHEN 325 MG TAB PO ONE ×2 (15:34→15:41)
[2016-10-31 15:43] VITALS: BP 180/118
[2016-10-31] MEDS: NICOTINE (21 MG/24 HR) PATCH TRANSDERM SCH (17:33)
[2016-10-31 20:29] VITALS: BP 181/114; RESP 20
[2016-10-31 22:34] VITALS: BP 198/113; RESP 20
[2016-10-31] MEDS ORDERED: CLONIDINE 0.2 MG/24 HR PATCH TRANSDERM ONE (23:30)
[2016-11-01] MEDS: DEXTROSE 5%-0.9% NACL 1,000 ML IV SCH ×3 (00:15→15:08)
[2016-11-01] MEDS: HYDROmorphONE 0.2 MG/ML PCA IV SCH ×3 (00:17→10:23)
[2016-11-01 00:42] VITALS: BP 197/112; PULSE 67; RESP 17
[2016-11-01] MEDS: hydrALAzine 20 MG INJ IV PRN (00:47)
[2016-11-01] MEDS: ONDANSETRON 4 MG INJ IV SCH ×3 (02:55→14:56)
[2016-11-01] MEDS: OLOPATADINE 0.1% 5 ML OPH BOTH EYES PRN (02:55)
[2016-11-01] MEDS: LORAZEPAM 2 MG INJ IV PRN ×2 (03:43→10:17)
[2016-11-01 05:34] LABS: ADD SCAN DIFF NO
[2016-11-01] MEDS: PANTOPRAZOLE 40 MG INJ IV SCH (05:41)
[2016-11-01 05:57] LABS: POTASSIUM 3.7 mmol/L (3.5-5.1)
[2016-11-01 05:59] LABS: CREATININE 1.05 mg/dl (0.61-1.24)
[2016-11-01 06:35] LABS: ABNORMAL IP MESSAGE 1; BASOPHIL # 0.1 10^3/ul (0.0-0.1); EOSINOPHILS # 1.2 10^3/ul (0.0-0.5); HEMATOCRIT 42.2 % (42.0-52.0); HEMOGLOBIN 14.3 g/dl (14.0-18.0); LYMPHOCYTES # 3.1 10^3/ul (0.8-2.9); LYMPHOCYTES % 26.8 % (15.0-51.0); MEAN CORPUSCULAR HEMOGLOBIN 28.5 pg (29.0-33.0); MEAN CORPUSCULAR HGB CONC 33.9 g/dl (32.0-37.0); MEAN CORPUSCULAR VOLUME 84.1 fl (82.0-101.0); MEAN PLATELET VOLUME 10.2 fl (7.4-10.4); MONOCYTE # 1.6 10^3/ul (0.3-0.9); MONOCYTES % 13.5 % (0.0-11.0); NEUTROPHIL # 5.7 10^3/ul (1.6-7.5); NEUTROPHILS % 48.4 % (39.0-77.0); PLATELET COUNT 553 10^3/UL (140-415); RED BLOOD COUNT 5.02 10^6/ul (4.70-6.10); RED CELL DISTRIBUTION WIDTH 17.7 % (11.5-14.5); WHITE BLOOD COUNT 11.7 10^3/ul (4.8-10.8)
[2016-11-01 08:00] VITALS: BP 173/108; RESP 18
[2016-11-01 08:06] VITALS: BP 170/79; RESP 18
--- NOTE | 2016-11-01 11:00 | PN ---
Date/Time of Note Date/Time of Note DATE: 11/01/16 TIME: 10:58 Assessment/Plan VTE Prophylaxis VTE Prophylaxis Intervention: SCD's Lines/Catheters IV Catheter Type (from Nrsg): Peripheral IV Urinary Cath still in place: Yes Reason Cath still needed: other (indicate) (will d/c) Assessment/Plan Assessment/Plan 1. Abdominal pain secondary to acute on chronic pancreatitis - resolved 2. Hypertensive Urgency: resolved. 2/2 to medication non compliance 3. History of alcohol abuse. No signs of any DTs or withdrawal 4. Prior smoking history -nicotine patch at home, although he denies any cigarette use presently, though it is unclear. 5. History of chronic pain syndrome PLAN: advance diet if ok with GI and surgery d/c munson continue supportive care Gastrointestinal prophylaxis. PPI. Deep venous thrombosis prophylaxis. Sequential compression devices. Subjective 24 Hr Interval Summary Free Text/Dictation feels well, wants to go home if cleared Exam/Review of Systems Vital Signs Vitals Vital Signs Date Time Temp Pulse Resp B/P Pulse Ox O2 Delivery O2 Flow Rate FiO2 11/01/16 08:56 20 11/01/16 08:06 98.0 77 170/79 94 10/31/16 00:30 Room Air Intake and Output 10/31/16 10/31/16 11/01/16 15:00 23:00 07:00 Intake Total 1600 ml 760 ml Output Total 1800 ml Balance 1600 ml -1040 ml Exam Constitutional: alert, oriented, well developed Psych: nl mood/affect, no complaints Head: atraumatic, normocephalic Eyes: EOMI, PERRL Respiratory: clear to auscultation, normal air movement Cardiovascular: nl pulses, regular rate and rhythm Gastrointestinal: soft, tender Extremities: normal pulses Results Result Diagram: 11/01/16 0445 11/01/16 0445 Results 24 hrs Laboratory Tests Test 11/01/16 04:45 Anion Gap 15 Basophils # 0.1 Basophils % 1.0 Blood Urea Nitrogen 7 Calcium Level 9.0 Carbon Dioxide Level 25 Chloride Level 103 Creatinine 1.05 Eosinophils # 1.2 H Eosinophils % 10.0 H Glucose Level 89 Hematocrit 42.2 Hemoglobin 14.3 Lipase 211 Lymphocytes # 3.1 H Lymphocytes % 26.8 Mean Corpuscular Hemoglobin 28.5 L Mean Corpuscular Hemoglobin Concent 33.9 Mean Corpuscular Volume 84.1 Mean Platelet Volume 10.2 Monocytes # 1.6 H Monocytes % 13.5 H Neutrophils # 5.7 Neutrophils % 48.4 Nucleated Red Blood Cells # 0.0 Nucleated Red Blood Cells % 0.0 Platelet Count 553 H Potassium Level 3.7 Red Blood Count 5.02 Red Cell Distribution Width 17.7 H Sodium Level 139 White Blood Count 11.7 H Medications Medications Current Medications Hydralazine HCl (Apresoline) 10 mg Q4H PRN IV ELEVATED BLOOD PRESSURE Last administered on 10/31/16 03:12; Admin Dose 10 MG; Start 10/28/16 at 14:00 Nitroglycerin (Nitroglycerin (Sl Tab) 0.4 Mg) 1 tab Q5M PRN SL ANGINA; Start at 14:00 Clonidine HCl (Catapres-Tts 2 Patch) 1 patch Q7D TRANSDERM Last administered on 10/28/16 16:42; Admin Dose 1 PATCH; Start 10/28/16 at 15:30 Nicotine 1 patch 1 patch QPM TRANSDERM Last administered on 10/31/16 17:33; Admin Dose 1 PATCH; Start 10/28/16 at 21:00 Dextrose/Sodium Chloride (D5-NS) 1,000 ml @ 150 mls/hr Q6H40M IV Last administered on 11/01/16 10:23; Admin Dose 150 MLS/HR; Start 10/28/16 at 14:30 Enalaprilat (Vasotec Iv) 0.625 mg Q4H PRN IV ELEVATED BLOOD PRESSURE Last administered on 10/31/16 17:34; Admin Dose 0.625 MG; Start 10/28/16 at 14:30 Lorazepam (Ativan) 1 mg Q6H PRN IV ANXIETY Last administered on 11/01/16 10:17 ; Admin Dose 1 MG; Start 10/28/16 at 15:30 Ondansetron HCl (Zofran Inj) 4 mg Q6H IV Last administered on 11/01/16 08:53; Admin Dose 4 MG; Start 10/29/16 at 14:00 Hydromorphone HCl (Dilaudid POT PRESS OPERATOR) 0 MG/HR CONTINUOUS R... Q4PCA IV Last administered on 11/01/16 10:23; Admin Dose 6 MG; Start 10/29/16 at 14:00 Pantoprazole (Protonix Iv) 40 mg BID@,18 IV Last administered on 11/01/16 05: 41; Admin Dose 40 MG; Start 10/29/16 at 18:00 Olopatadine HCl (Patanol 0.1% Oph) 1 drop BID PRN BOTH EYES eye alllergies Last administered on 11/01/16 02:55; Admin Dose 1 DROP; Start 10/29/16 at 19:30 Hydralazine HCl (Apresoline) 20 mg Q4 PRN IV ELEVATED SYSTOLIC BP Last administered on 11/01/16 00:47; Admin Dose 20 MG; Start 10/31/16 at 03:30 MIGDALIA ANDREWS Nov 01, 2016 10:59 MIGDALIA ANDREWS Nov 01, 2016 10:59
[2016-11-01] MEDS ORDERED: HYDROmorphONE 1 MG/ML SYG IV PRN (13:00)
[2016-11-01] MEDS ORDERED: HYDROCODONE/APAP (10/325) TAB PO PRN (13:00)
--- NOTE | 2016-11-01 14:24 | PDOCDIS ---
Discharge Instructions DIAGNOSIS Discharge Diagnosis: Acute pancreatitis CONDITION Patient Condition: Stable HOME CARE INSTRUCTIONS: Special Diet: low cholesterol / low fat ACTIVITY: Activity Restrictions: Slowly Increase Activity Rest between Activity OTHER ORDERS: Other Orders: Call Dr Cruz's office in about a week to find out about your authorization to see pancreatic specialist at [facility] Name, Degree: Jesus Cruz MD Specialty: General Surgery Comments: Office Address: [address] [place] [address] Office Office Guard Entrance Registrar: Jesus Cruz MD Status: MIGDALIA Lieberman Nov 01, 2016 14:24
--- NOTE | 2016-11-01 22:20 | CONS ---
Date/Time of Note Date/Time of Note DATE: 11/01/16 TIME: 22:18 Assessment/Plan Assessment/Plan Chief Complaint/Hosp Course Impression: 1. Abdominal pain secondary to acute on chronic pancreatitis - lipase trending down, still elevated (9000 -> 1800 -> 689->329). Resolved. 2. History of alcohol abuse. No signs of any DTs or withdrawal 3. Prior smoking history: unclear whether he actively smokes or not. Recommendations: 1. f/u with Dr. Gaston as out-pt 2. f/u lab to check IgG4 level to r/o autoimmune pancreatitis 3. ok to dc from GI perspective as long as he makes an appointment with Dr. Gaston to f/u on out-pt basis and not lost to f/u. Problems: Consultation Date/Type/Reason Admit Date/Time Oct 29, 2016 at 09:39 Initial Consult Date 10/30/16 Type of Consultation: GI 24 HR Interval Summary Free Text/Dictation abdominal pain a lot better, no n/v. Exam/Review of Systems Vital Signs Vitals Vital Signs Date Time Temp Pulse Resp B/P Pulse Ox O2 Delivery O2 Flow Rate FiO2 11/01/16 08:56 20 11/01/16 08:06 98.0 77 170/79 94 10/31/16 00:30 Room Air Intake and Output 10/31/16 10/31/16 11/01/16 15:00 23:00 07:00 Intake Total 1600 ml 760 ml Output Total 1800 ml Balance 1600 ml -1040 ml Exam Constitutional: alert, oriented, well developed Psych: nl mood/affect, no complaints Head: atraumatic, normocephalic Eyes: EOMI, nl conjunctiva, nl lids, nl sclera ENMT: mucosa pink and moist, nl external ears & nose, nl lips & teeth, nl nasal mucosa & septum Neck: non-tender, supple Respiratory: clear to auscultation, normal air movement Cardiovascular: nl pulses, regular rate and rhythm Gastrointestinal: bowel sounds, non-tender, soft Results Result Diagram: 11/01/16 0445 11/01/16 0445 Results 24 hrs Laboratory Tests Test 11/01/16 04:45 Anion Gap 15 Basophils # 0.1 Basophils % 1.0 Blood Urea Nitrogen 7 Calcium Level 9.0 Carbon Dioxide Level 25 Chloride Level 103 Creatinine 1.05 Eosinophils # 1.2 H Eosinophils % 10.0 H Glucose Level 89 Hematocrit 42.2 Hemoglobin 14.3 Lipase 211 Lymphocytes # 3.1 H Lymphocytes % 26.8 Mean Corpuscular Hemoglobin 28.5 L Mean Corpuscular Hemoglobin Concent 33.9 Mean Corpuscular Volume 84.1 Mean Platelet Volume 10.2 Monocytes # 1.6 H Monocytes % 13.5 H Neutrophils # 5.7 Neutrophils % 48.4 Nucleated Red Blood Cells # 0.0 Nucleated Red Blood Cells % 0.0 Platelet Count 553 H Potassium Level 3.7 Red Blood Count 5.02 Red Cell Distribution Width 17.7 H Sodium Level 139 White Blood Count 11.7 H TRISTEN TORRES MD Nov 01, 2016 22:20
--- NOTE | 2016-11-02 15:48 | DS ---
DATE OF ADMISSION: 10/29/2016 DATE OF DISCHARGE: 11/01/2016 PRESENTING COMPLAINT: Abdominal pain. FINAL DIAGNOSES: 1. Acute on chronic pancreatitis: improved 2. Hypertensive urgency: resolved 3. History of alcohol abuse. 4. Prior smoking history. 5. History of Chronic pancreatic pseudocysts. 6. HTN: now controlled 7. Medication noncompliance? HOSPITAL COURSE: Full details are available in the chart for review. In summary, this 37 yo M presented with severe abdominal pain and elevated lipase levels and was admitted for recurrent pancreatitis. She was managed per protocol with IV fluids , pain control, and PPI therapy. He also underwent an MRCP. This MRI came back essentially the same as previous with the following assessment IMPRESSION: Examination is limited without intravenous contrast. Peripancreatic fat infiltration and small foci of peripancreatic fluid, reflecting pancreatitis. There is a small cystic structure identified in the uncinate process measuring up to 2 cm, suggestive of a small pseudocyst. No definite focal pancreatic mass is demonstrated, albeit this evaluation is limited without intravenous contrast. These findings were reviewed with the home theatre technician as well as the hepatobiliary surgeon, no further interventions were recommended. Patient felt much better at the time of discharge and was tolerating a full liquid diet. DISPOSITION: The patient's diet is to be advanced. If he tolerates it, could be discharged in stable condition. He is to call Dr. Cruz's office, where the staff is working on getting insurance authorization for outpatient to review with hepatobiliary surgery in use yearly. The patient likely needs an stent in the pancreatic duct and probably a biopsy in that area as well. For details, please see Dr. Cruz's notes. The patient is to also follow up as an outpatient with also his primary care physician in the next 1-2 weeks. The patient was also encouraged to abstain from alcohol and stay compliant with his meds. Time spent on discharge planning has been more than 45 minutes. Dictated By: MIGDALIA ANDREWS MD, BA/MIRIAM Conf#: [id number] DID#: [id number]
== END 2016-11-01 17:35 | disposition home or self-care (01) | DRG 440 ==
LOC: E/R 10:06 → MS1 12:31 → OBSVTOIN 10-29 09:39
PROVIDERS: ADMIT Internal Medicine; ATTEND Internal Medicine
DX: K86.1 Other chronic pancreatitis (principal); I10 Essential (primary) hypertension; K85.90 Acute pancreatitis without necrosis or infection, unspecified; Z87.898 Personal history of other specified conditions; Z91.19 Patient's noncompliance with other medical treatment and regimen
CPT/HCPCS: 36415; 74181; 80048; 80053; 80061; 80306; 80307; 82150; 82787; 83036; 83690; 83735; 84100; 84439; 84443; 85025; 85610; 85730; 87081; 96374; 96375; 96376; C9113; G0378; J0360; J1170; J2060; J2270; J2405; J2765; J3250; J3480; J7030; J7042

== ENCOUNTER 2016-11-05 05:35 | Inpatient (IN) | payer BC ==
[~2016-11-05] VITALS: Ht 182.9 cm; Wt 102.0 kg
[2016-11-05] MEDS ORDERED: DICLOFENAC SODIUM 37.5 MG/ML VIAL IV STA (07:09)
[2016-11-05] MEDS ORDERED: SOD CHLORIDE 0.9% 1,000 ML IV STA (07:09)
[2016-11-05] MEDS ORDERED: LIDOCAINE/MYLANTA 40 ML BTL PO STA (07:17)
[2016-11-05] MEDS ORDERED: ONDANSETRON 4 MG INJ IV STA (07:17)
[2016-11-05] MEDS ORDERED: BELLADONNA/PHENOBARBITAL TAB PO STA (07:17)
[2016-11-05] MEDS ORDERED: PANTOPRAZOLE (EC) 40 MG TAB PO ONE (07:30)
[2016-11-05 08:12] LABS: ADD SCAN DIFF NO
[2016-11-05 08:28] LABS: ABNORMAL IP MESSAGE 1; BASOPHIL # 0.2 10^3/ul (0.0-0.1); BASOPHILS % 1.1 % (0.0-2.0); EOSINOPHILS # 0.7 10^3/ul (0.0-0.5); HEMOGLOBIN 14.2 g/dl (14.0-18.0); LYMPHOCYTES # 3.6 10^3/ul (0.8-2.9); MEAN CORPUSCULAR HEMOGLOBIN 27.6 pg (29.0-33.0); MEAN CORPUSCULAR HGB CONC 32.3 g/dl (32.0-37.0); MEAN CORPUSCULAR VOLUME 85.4 fl (82.0-101.0); MEAN PLATELET VOLUME 10.2 fl (7.4-10.4); MONOCYTE # 1.6 10^3/ul (0.3-0.9); MONOCYTES % 10.6 % (0.0-11.0); NEUTROPHIL # 8.8 10^3/ul (1.6-7.5); PLATELET COUNT 570 10^3/UL (140-415); RED BLOOD COUNT 5.15 10^6/ul (4.70-6.10); RED CELL DISTRIBUTION WIDTH 18.4 % (11.5-14.5); WHITE BLOOD COUNT 14.9 10^3/ul (4.8-10.8)
[2016-11-05 08:30] LABS: POTASSIUM 4.6 mmol/L (3.5-5.1)
[2016-11-05 08:32] LABS: ALBUMIN/GLOBULIN RATIO 1.21; CREATININE 1.11 mg/dl (0.61-1.24); TOTAL PROTEIN 7.3 g/dl (6.1-8.1)
[2016-11-05 08:33] LABS: CALCIUM 9.4 mg/dl (8.4-10.2)
[2016-11-05] MEDS ORDERED: OXYCODONE/ACETAMINOPHEN (5/325) TAB PO ONE (09:00)
[2016-11-05] MEDS ORDERED: LISI10TA2 PO (09:27)
[2016-11-05] MEDS ORDERED: AMLO-147 PO (09:27)
[2016-11-05] MEDS ORDERED: METO-429 PO (09:28)
[2016-11-05] MEDS ORDERED: SOD CHLORIDE 0.9% 1,000 ML IV ONE (10:00)
[2016-11-05] MEDS ORDERED: KETOROLAC 30 MG INJ IV PRN ×2 (10:30→14:00)
[2016-11-05] MEDS ORDERED: hydrALAzine 20 MG INJ IV ONE (11:00)
[2016-11-05 11:43] VITALS: BP 222/135; PULSE 59; RESP 18
[2016-11-05 11:47] VITALS: Ht 182.9 cm; Wt 102.0 kg
[2016-11-05] MEDS ORDERED: CLONIDINE 0.2 MG/24 HR PATCH TRANSDERM SCH (12:30)
[2016-11-05] MEDS ORDERED: LORAZEPAM 2 MG INJ IV PRN (12:30)
[2016-11-05 12:33] VITALS: BP 186/118; PULSE 78; RESP 20
[2016-11-05] MEDS ORDERED: ACETAMINOPHEN 1000MG/100ML IV 100 ML IVPB ONE (13:00)
--- NOTE | 2016-11-05 13:40 | HP ---
Date/Time of Note Date/Time of Note DATE: 11/05/16 TIME: 13:39 Assessment/Plan Lines/Catheters IV Catheter Type (from Nrs): Saline Lock HPI/ROS Admit Date/Time Admit Date/Time Nov 05, 2016 at 09:39 PMH/Family/Social Past Surgical History Past Surgical Hx: endoscopy, other Social History Smoking Status: Current every day smoker Exam/Review of Systems Vital Signs Vitals Vital Signs Date Time Temp Pulse Resp B/P Pulse Ox O2 Delivery O2 Flow Rate FiO2 11/05/16 12:33 78 20 186/118 96 Room Air 11/05/16 11:43 97.5 Labs Result Diagram: 11/05/16 0747 11/05/16 0747 Medications Medications Current Medications Ketorolac Tromethamine (Toradol) 30 mg Q6H PRN IV PAIN Last administered on 11:27; Admin Dose 30 MG; Start 11/05/16 at 10:30; Stop 11/08/16 at 10:29 Lorazepam (Ativan) 0.5 mg Q6H PRN IV ANXIETY Last administered on 11/05/16 13: 26; Admin Dose 0.5 MG; Start 11/05/16 at 12:30 Clonidine HCl (Catapres-Tts 2 Patch) 1 patch Q7D TRANSDERM ; Start 11/05/16 at 12:30 MIGDALIA ANDREWS Nov 05, 2016 13:39
[2016-11-05 14:00] VITALS: BP 215/125; PULSE 72; RESP 20
[2016-11-05] MEDS ORDERED: SOD CHLORIDE 0.9% 1,000 ML IV SCH (14:00)
[2016-11-05] MEDS ORDERED: METOPROLOL 50 MG TAB PO SCH (14:00)
[2016-11-05] MEDS ORDERED: LISINOPRIL 10 MG TAB PO SCH (14:00)
[2016-11-05] MEDS ORDERED: AMLODIPINE 10 MG TAB PO SCH (14:00)
[2016-11-05] MEDS ORDERED: PANTOPRAZOLE (EC) 40 MG TAB PO SCH (14:00)
[2016-11-05] MEDS ORDERED: ONDANSETRON 4 MG INJ IV PRN (14:00)
[2016-11-05] MEDS ORDERED: DOCUSATE SODIUM 100 MG CAP PO SCH (21:00)
== END 2016-11-05 16:44 | disposition left against medical advice (07) | DRG 440 ==
LOC: E/R 05:35 → MS2 09:39
PROVIDERS: ADMIT Family Medicine; ATTEND Family Medicine
DX: K86.1 Other chronic pancreatitis (principal); F17.200 Nicotine dependence, unspecified, uncomplicated
CPT/HCPCS: 80053; 83690; 85025; J0131; J0360; J1885; J2060; J2405; J7030